=== PATIENT | female | born 1970 | race Caucasian/White ===

== ENCOUNTER → 2016-06-04 | Outpatient (CLI) | payer OTHER ==
--- NOTE | 2016-06-04 16:17 | CT ---
EXAMINATION TYPE: CT abdomen pelvis w con DATE OF EXAM: 06/04/2016 3:27 PM COMPARISON: NONE INDICATION: Abdomin pain DLP: 1142 mGycm, Automated exposure control for dose reduction was used. CONTRAST: 100 ml mL of Omnipaque 300. Study performed with Oral Contrast TECHNIQUE: Axial images were obtained from above the diaphragm to the pubic rami in the axial plane a t 5 mm thick sections. Reconstructed images are reviewed on the computer in the coronal plane. FINDINGS: Limited CT sections are obtained the lung bases. The lung bases are clear. CT ABDOMEN: Liver: Normal Spleen: Normal Pancreas: Normal Adrenal glands: The adrenal glands are normal. Gallbladder: Surgically absent Kidneys: No masses are evident. No hydronephrosis is present. No cysts are present. Delayed images were obtained through the kidneys, which remain unremarkable. Aorta: Vascular calcification is within the aorta. Inferior vena cava: Normal. CT PELVIS: Loops of bowel within the abdomen and pelvis are normal. There are loops of bowel which are incom pletely distended or lack oral contrast limiting their evaluation. Appendix: Normal as visualized. Urinary bladder: Normal. Genitourinary structures: Uterus is not identified. Adnexal regions are clear Osseous structures: No suspicious lytic or sclerotic lesions. IMPRESSIONS: 1. Unremarkable CT abdomen and pelvis
== END | disposition home or self-care (01) ==
LOC: RADCTMAIN 14:55
PROVIDERS: ATTEND Family Medicine
DX: R10.9 Unspecified abdominal pain (principal)
CPT/HCPCS: 74177; Q9967

== ENCOUNTER 2016-08-26 23:22 | Emergency (ER) | payer OTHER ==
[2016-08-27] MEDS ORDERED: ASPIRIN 81 MG CHEW PO STA (00:18)
[2016-08-27 00:41] LABS: Basophils # (A) 0.1 k/uL (0-0.2); Basophils % (A) 1 %; CHCM 32.5; Eosinophils # (A) 0.4 k/uL (0-0.7); Eosinophils % (A) 4 %; HDW 2.26; HGB 14.1 gm/dL (11.4-16.0); Luc # (Auto) 0.34; Luc % (Auto) 3; Lymphocytes # (A) 4.6 k/uL (1.0-4.8); Lymphocytes % (A) 37 %; MCH 29.6 pg (25.0-35.0); MCHC 31.9 g/dL (31.0-37.0); MCV 92.7 fL (80.0-100.0); Mean Platelet Volume 6.7; Monocytes # (A) 0.8 k/uL (0-1.0); Monocytes % (A) 7 %; Neutrophils # (A) 5.9 k/uL (1.3-7.7); Neutrophils % (A) 49 %; RBC 4.75 m/uL (3.80-5.40); RDW 13.8 % (11.5-15.5); WBC 12.2 k/uL (3.8-10.6); WBC (Perox) 11.84
[2016-08-27 00:51] LABS: ALT 18 U/L (9-52); AST 12 U/L (14-36); Alkaline Phosphatase 67 U/L (38-126); Amylase 71 U/L (30-110); Anion Gap 9 mmol/L; Blood Urea Nitrogen 13 mg/dL (7-17); Carbon Dioxide 21 mmol/L (22-30); Chloride 109 mmol/L (98-107); Glucose 95 mg/dL (74-99); Non-African American GFR(MDRD) >60 (>60 ml/min/1.73 sqM); Potassium 4.2 mmol/L (3.5-5.1); Sodium 139 mmol/L (137-145); Total Bilirubin 0.6 mg/dL (0.2-1.3); Total Protein 6.8 g/dL (6.3-8.2)
--- NOTE | 2016-08-27 01:01 | XR ---
EXAM: XR Chest, 1 View. CLINICAL HISTORY: Reason: chest pain TECHNIQUE: Frontal view of the chest. COMPARISON: Chest x-ray 12/25/2015. FINDINGS: Lungs: Unremarkable. No consolidation. Pleural space: Unremarkable. No pneumothorax. Heart: Unremarkable. No cardiomegaly. Mediastinum: Unremarkable. Bones/joints: Unremarkable. Other findings: Partially imaged cervical fusion hardware. IMPRESSION: No acute findings.
[2016-08-27] MEDS ORDERED: HYDROcodone/APAP 7.5-325MG 1 EACH TAB PO ONE (01:04)
[2016-08-27] MEDS ORDERED: IBUPROFEN 600 MG TAB PO STA (01:05)
--- NOTE | 2016-08-27 01:05 | ED ---
Chest Pain HPI - General Chief Complaint: Chest Pain Stated Complaint: Chest pain Time Seen by Provider: 08/26/16 23:33 Source: patient Mode of arrival: wheelchair Limitations: no limitations - History of Present Illness MD Complaint: chest pain Onset/Timin -: hour(s) Onset: during rest Pain Location: left chest Pain Radiation: none Severity: severe Quality: sharp Consistency: constant Improves With: nothing Worsens With: inspiration Treatments Prior to Arrival: none - Related Data Home Medications Medication Instructions Recorded Confirmed HYDROcodone/APAP 10-325MG [[place] 1 tab PO QID 02/16/14 08/26/16 10] Levalbuterol Nebulized [Xopenex 1.25 mg INHALATION RT-TID PRN 02/16/14 08/26/16 Nebulized] Montelukast [Singulair] 10 mg PO HS 04/07/15 08/26/16 diphenhydrAMINE [Benadryl] 50 mg PO HS 04/07/15 08/26/16 Levalbuterol Hfa Inhaler [Xopenex 2 puff INHALATION RT-BID PRN 12/25/15 08/26/16 Hfa Inhaler] Ranitidine HCl [Zantac] 150 mg PO HS 12/25/15 08/26/16 ALPRAZolam [Xanax] 2 mg PO BID PRN 02/29/16 08/26/16 Amoxic-Pot Clav 875-125Mg 1 tab PO BID 08/26/16 08/26/16 [Augmentin 875-125] Ibuprofen [Motrin] 800 mg PO TID PRN 08/26/16 08/26/16 Allergies Allergy/AdvReac Type Severity Reaction Status Date / Time adhesive Allergy Unknown Rash/Hives Verified 08/26/16 23:55 Iodinated Contrast Media - Allergy Rash/Hives Verified 08/26/16 23:55 Oral and [Iodinated Contrast Media - IV Dye] latex Allergy Rash/Hives Verified 08/26/16 23:55 morphine Allergy Rash/Hives Verified 08/26/16 23:55 albuterol AdvReac Rapid Verified 08/26/16 23:55 Heart Rate Review of Systems ROS Statement: Those systems with pertinent positive or pertinent negative responses have been documented in the HPI. ROS Other: All systems not noted in ROS Statement are negative. Constitutional: Denies: fever, chills Respiratory: Denies: cough, dyspnea, wheezes Cardiovascular: Reports: as per HPI, chest pain. Denies: palpitations, orthopnea, edema, syncope Gastrointestinal: Denies: abdominal pain, nausea, vomiting Genitourinary: Denies: dysuria, hematuria Musculoskeletal: Denies: back pain Skin: Denies: rash Neurological: Denies: headache, weakness, numbness EKG Findings - EKG Results: EKG: interpreted by ANJUM TABARES, sinus rhythm (With sinus arrhythmia at a rate of 88 bpm), normal axis, normal QRS, normal ST/T, no acute changes Past Medical History Past Medical History: COPD, Fibromyalgia, Osteoarthritis (OA), Pneumonia Additional Past Medical History / Comment(s): BACK PAIN, HEART PALPITATIONS, INSOMNIA, PULMONARY HTN, COUGH FOR OVER 1 MONTH. PT STATES ABSENCE OF RT LUNCG PULMONARY ARTERY. History of Any Multi-Drug Resistant Organisms: None Reported Past Surgical History: Section, Cholecystectomy, Hysterectomy, Orthopedic Surgery Additional Past Surgical History / Comment(s): LIA CATARACTS, NECK SURG. Past Anesthesia/Blood Transfusion Reactions: No Reported Reaction, Motion Sickness Past Psychological History: Anxiety, Panic Disorder, PTSD Smoking Status: Current every day smoker Past Alcohol Use History: Occasional Past Drug Use History: None Reported General Exam Limitations: no limitations General appearance: alert, in no apparent distress Head exam: Present: atraumatic, normocephalic Eye exam: Present: normal appearance. Absent: scleral icterus, conjunctival injection ENT exam: Present: normal oropharynx Neck exam: Present: normal inspection Respiratory exam: Present: normal lung sounds bilaterally, chest wall tenderness. Absent: respiratory distress, wheezes, rales, rhonchi, stridor, accessory muscle use, decreased breath sounds, prolonged expiratory Cardiovascular Exam: Present: regular rate, normal rhythm, normal heart sounds. Absent: systolic murmur, diastolic murmur, rubs, gallop GI/Abdominal exam: Present: soft. Absent: distended, tenderness, guarding, rebound, mass Extremities exam: Present: normal inspection, normal capillary refill. Absent: pedal edema, calf tenderness Back exam: Present: normal inspection. Absent: CVA tenderness (R), CVA tenderness (L) Neurological exam: Present: alert Psychiatric exam: Present: anxious Skin exam: Present: warm, dry, intact, normal color. Absent: rash Course Vital Signs 08/26/16 08/27/16 23:27 02:12 Temperature 97.6 F 97.4 F L Pulse Rate 91 86 Respiratory 18 16 Rate Blood Pressure 131/63 111/55 O2 Sat by Pulse 96 98 Oximetry Disposition Clinical Impression: Chest pain Disposition: Left Against Medical Advice Condition: Undetermined Instructions: Chest Pain (ED) Referrals: Beto Hernandez MD [Primary Care Provider] - 1-2 days
[2016-08-27 01:11] LABS: Creatine Kinase 56 U/L (30-135); Partial Thromboplastin Time 24.6 sec (22.0-30.0); Prothrombin Time 9.8 sec (9.0-12.0)
[2016-08-27 01:23] LABS: Creatine Kinase MB <0.2 ng/mL (0.0-2.4); Troponin I <0.012 ng/mL (0.000-0.034)
[2016-08-27 02:13] VITALS: BP 111/55; PULSE 86; RESP 16; TEMP 97.4
[2016-08-27] MEDS ORDERED: predniSONE 20 MG TAB PO STA (02:24)
== END 2016-08-27 03:14 | disposition left against medical advice (07) ==
LOC: EC 23:22
DX: R07.9 Chest pain, unspecified (principal); J44.9 Chronic obstructive pulmonary disease, unspecified; M79.7 Fibromyalgia; M19.90 Unspecified osteoarthritis, unspecified site; F41.0 Panic disorder [episodic paroxysmal anxiety]; F43.10 Post-traumatic stress disorder, unspecified; F17.200 Nicotine dependence, unspecified, uncomplicated; Z79.891 Long term (current) use of opiate analgesic; Z79.899 Other long term (current) drug therapy; Z91.041 Radiographic dye allergy status; Z88.5 Allergy status to narcotic agent; Z91.040 Latex allergy status; Z91.048 Other nonmedicinal substance allergy status
CPT/HCPCS: 36415; 71010; 80053; 82150; 82550; 82553; 83690; 83735; 84484; 85025; 85379; 85610; 85730; 93005; 99285

== ENCOUNTER → 2016-09-24 | Outpatient (CLI) | payer OTHER ==
--- NOTE | 2016-09-24 13:23 | CT ---
EXAMINATION TYPE: CT sinus wo con DATE OF EXAM: 09/24/2016 1:12 PM COMPARISON: NONE HISTORY: Patient complains of recurrent sinus infections with sinus drainage. CT DLP: [address] of the paranasal sinuses was performed in the axial and coronal planes. Bone and soft tissue settings are submitted. The paranasal sinuses demonstrate normal aeration and development. Minimal mucosal thickening of the right maxillary sinus. The remaining paranasal sinuses are well-aer ated. The osteal meatal units are patent bilaterally. The nasal septum is midline. No bony destructive changes are seen within the field of view. IMPRESSION: Minimal mucosal thickening right maxillary sinus.
--- NOTE | 2016-09-24 13:26 | CT ---
EXAMINATION TYPE: CT chest w con DATE OF EXAM: 09/24/2016 1:15 PM COMPARISON: May 27, 2014 HISTORY: Patient complains of left side chest/axilla pain with chronic sinusitis and sinus drainage. CT DLP: 494 mGycm Automated exposure control for dose reduction was used. CONTRAST: CT scan of the chest is performed with IV Contrast, patient injected with 100 mL of Omnipaque 300. FINDINGS: LUNGS: Again noted are scattered calcified and noncalcified small pulmonary nodules unchanged from pr ior examination and felt to be related to remote granulomatous disease. There is right apical scarrin g. Mild subpleural fibrosis is identified within the right midlung zone. Mild dependent right basilar atelectasis. MEDIASTINUM: Calcified hilar and mediastinal lymph nodes identified. No pericardial effusion is seen. Thoracic aorta is of normal caliber. The heart is not enlarged. UPPER ABDOMEN: Mild fatty liver. Cholecystectomy clips identified. OTHER: No additional significant abnormality is seen. IMPRESSION: 1. Changes of remote granulomatous disease.
== END | disposition home or self-care (01) ==
LOC: RADCTMAIN 12:27
PROVIDERS: ATTEND Family Medicine
DX: J34.89 Other specified disorders of nose and nasal sinuses (principal); J44.9 Chronic obstructive pulmonary disease, unspecified
CPT/HCPCS: 71260; 70486; Q9967

== ENCOUNTER → 2016-11-22 | Outpatient (CLI) | payer OTHER | END | disposition home or self-care (01) | LOC: RADMRIMAIN 18:19 | PROVIDERS: ATTEND Ophthalmology | DX: Z53.9 Procedure and treatment not carried out, unspecified reason (principal) ==

== ENCOUNTER → 2016-12-02 | Outpatient (CLI) | payer OTHER ==
--- NOTE | 2016-12-02 14:34 | MR ---
EXAMINATION TYPE: MR brain wo/w con DATE OF EXAM: 12/02/2016 COMPARISON: MRI brain March 02, 2012 HISTORY: papilledema unspecified per order. Frequent headaches with blurred vision and eye pain as we ll as forgetfulness per patient. TECHNIQUE: Multiplanar, multisequence images of the brain and brainstem is performed without and with IV contras t, utilizing 15 mL intravenous MultiHance . FINDINGS: Diffusion weighted images demonstrate no evidence of a recent infarct or other diffusion ab normality. There is no worrisome extra-axial fluid collection. The ventricular system and cisternal spaces are normal in size and appearance. The brain volume is age appropriate. There are scattered foci of T2 hyperintensity seen throughout the white matter bilaterally. Estimate tendon 15 scattered small lesions increased in size and number from prior study. Largest measured lesion is 6 x 3 mm left frontal white matter on axial image 20. Midline structures demonstrate normal morphology. The craniocervical junction appears within normal limits. Post contrast images demonstrate no abnormal enhancement. The dural venous sinuses appear pa tent. The globes are intact bilaterally. Visualized paranasal sinuses are grossly clear. IMPRESSION: Progression of mild to borderline moderate nonspecific white matter changes. Findings cou ld reflect ischemic change related to product of migraine headaches however in patient of this age de myelinating disease needs to BE excluded. Neurology referral advised.
== END ==
LOC: RADMRIMAIN 12:52
PROVIDERS: ATTEND Family Medicine
DX: R90.89 Other abnormal findings on diagnostic imaging of central nervous system (principal)
CPT/HCPCS: 70553; A9577

== ENCOUNTER 2017-01-15 23:11 | Observation (INO) | payer OTHER ==
[2017-01-15] MEDS ORDERED: NITROGLYCERIN OINT 1 INCH/GM PACKET TOPICAL STA (23:26)
[2017-01-15] MEDS ORDERED: ASPIRIN 81 MG PO STA (23:26)
[2017-01-15] MEDS ORDERED: NITROGLYCERIN SL TABS 0.4 MG TAB SUBLINGUAL STA (23:26)
--- NOTE | 2017-01-15 23:29 | ED ---
General Adult HPI - General Chief complaint: Chest Pain Stated complaint: Chest Pain/Dizzy/Headache Time Seen by Provider: 01/15/17 23:15 Source: patient, family, RN notes reviewed Mode of arrival: ambulatory Limitations: no limitations - History of Present Illness Initial comments: This is a 46-year-old female presents emergency Department with a past medical history significant for elevated cholesterol and COPD and continues to smoke at this time. Patient states she's been in the ER many times prior to this for chest pain and known is able to find anything that is causing her pain. Patient states she started having pain a couple hours prior to arrival she also states she short of breath with the pain she states the pain radiates up into her neck and down her left arm. Patient states she had no nausea or vomiting. Patient states she does have a headache but the headache is been ongoing for months. Patient states she is also a little bit dizzy but that is also been going on for quite a long time. Patient denies any fever chills or cough. Patient denies abdominal pain patient denies any sweating episodes. Patient denies any leg swelling or calf pain. - Related Data Home Medications Medication Instructions Recorded Confirmed HYDROcodone/APAP 10-325MG [[place] 1 tab PO QID 02/16/14 01/15/17 10] Levalbuterol Nebulized [Xopenex 1.25 mg INHALATION RT-TID PRN 02/16/14 01/15/17 Nebulized] Montelukast [Singulair] 10 mg PO HS 04/07/15 01/15/17 diphenhydrAMINE [Benadryl] 50 mg PO HS 04/07/15 01/15/17 Levalbuterol Hfa Inhaler [Xopenex 2 puff INHALATION RT-BID PRN 12/25/15 01/15/17 Hfa Inhaler] Ranitidine HCl [Zantac] 150 mg PO HS 12/25/15 01/15/17 ALPRAZolam [Xanax] 2 mg PO BID PRN 02/29/16 01/15/17 Ibuprofen [Motrin] 800 mg PO TID PRN 08/26/16 01/15/17 Allergies Allergy/AdvReac Type Severity Reaction Status Date / Time adhesive Allergy Unknown Rash/Hives Verified 01/15/17 23:15 Iodinated Contrast- Oral and Allergy Rash/Hives Verified 01/15/17 23:15 IV Dye [Iodinated Contrast Media - IV Dye] latex Allergy Rash/Hives Verified 01/15/17 23:15 morphine Allergy Rash/Hives Verified 01/15/17 23:15 albuterol AdvReac Rapid Verified 01/15/17 23:15 Heart Rate Review of Systems ROS Statement: Those systems with pertinent positive or pertinent negative responses have been documented in the HPI. ROS Other: All systems not noted in ROS Statement are negative. Past Medical History Past Medical History: COPD, Fibromyalgia, Osteoarthritis (OA), Pneumonia Additional Past Medical History / Comment(s): BACK PAIN, HEART PALPITATIONS, INSOMNIA, PULMONARY HTN, COUGH FOR OVER 1 MONTH. PT STATES ABSENCE OF RT LUNCG PULMONARY ARTERY. History of Any Multi-Drug Resistant Organisms: None Reported Past Surgical History: Section, Cholecystectomy, Hysterectomy, Orthopedic Surgery Additional Past Surgical History / Comment(s): LIA CATARACTS, NECK SURG, right knee surgery Past Anesthesia/Blood Transfusion Reactions: No Reported Reaction, Motion Sickness Past Psychological History: Anxiety, Panic Disorder, PTSD Smoking Status: Current every day smoker Past Alcohol Use History: Occasional Past Drug Use History: None Reported General Exam - General Exam Comments Initial Comments: GENERAL: Patient is well-developed and well-nourished. Patient is nontoxic and well- hydrated and is in no acute distress. ENT: Neck is soft and supple. No significant lymphadenopathy is noted. Oropharynx is clear. Moist mucous membranes. Neck has full range of motion without eliciting any pain. EYES: The sclera were anicteric and conjunctiva were pink and moist. Extraocular movements were intact and pupils were equal round and reactive to light. Eyelids were unremarkable. PULMONARY: Unlabored respirations. Good breath sounds bilaterally. No audible rales rhonchi or wheezing was noted. CARDIOVASCULAR: There is a regular rate and rhythm without any murmurs gallops or rubs. ABDOMEN: Soft and nontender with normal bowel sounds. No palpable organomegaly was noted. There is no palpable pulsatile mass. SKIN: Skin is clear with no lesions or rashes and otherwise unremarkable. NEUROLOGIC: Patient is alert and oriented x3. Cranial nerves II through XII are grossly intact. Motor and sensory are also intact. Normal speech, volume and content. Symmetrical smile. MUSCULOSKELETAL: Normal extremities with adequate strength and full range of motion. LYMPHATICS: No significant lymphadenopathy is noted PSYCHIATRIC: Normal psychiatric evaluation. Normal interpersonal interactions appears functionally intact in deals appropriately with others. No signs of depression. Patient is mildly anxious Limitations: no limitations Course Vital Signs 01/15/17 01/16/17 23:15 00:17 Temperature 98.6 F Pulse Rate 101 H 95 Respiratory 22 20 Rate Blood Pressure 127/74 95/54 O2 Sat by Pulse 95 97 Oximetry Medical Decision Making - Medical Decision Making EKG shows normal sinus rhythm at 99 bpm [place] interval 132 QRS is 82 QT interval 350 QTC is 449. Patient's EKG shows no ST segment elevation or depression or T wave abnormalities are noted. Chest x-ray shows no acute abnormality. - Lab Data Result diagrams: 01/15/17 23:30 01/15/17 23:30 Lab Results 01/15/17 01/15/17 01/15/17 Range/Units 23:30 23:30 23:30 WBC 16.9 H (3.8-10.6) k/uL RBC 4.88 (3.80-5.40) m/uL Hgb 14.7 (11.4-16.0) gm/dL Hct 44.0 (34.0-46.0) % MCV 90.2 (80.0-100.0) fL MCH 30.2 (25.0-35.0) pg MCHC 33.4 (31.0-37.0) g/dL RDW 14.8 (11.5-15.5) % Plt Count 422 (150-450) k/uL Neutrophils % 64 % Lymphocytes % 25 % Monocytes % 7 % Eosinophils % 2 % Basophils % 1 % Neutrophils # 10.8 H (1.3-7.7) k/uL Lymphocytes # 4.2 (1.0-4.8) k/uL Monocytes # 1.2 H (0-1.0) k/uL Eosinophils # 0.3 (0-0.7) k/uL Basophils # 0.1 (0-0.2) k/uL PT (9.0-12.0) sec INR (<1.2) APTT (22.0-30.0) sec Sodium 141 (137-145) mmol/L Potassium 4.6 (3.5-5.1) mmol/L Chloride 107 (98-107) mmol/L Carbon Dioxide 25 (22-30) mmol/L Anion Gap 9 mmol/L BUN 11 (7-17) mg/dL Creatinine 0.90 (0.52-1.04) mg/dL Est GFR (MDRD) Af Amer >60 (>60 ml/min/1.73 sqM) Est GFR (MDRD) Non-Af >60 (>60 ml/min/1.73 sqM) Glucose 104 H (74-99) mg/dL Calcium 9.8 (8.4-10.2) mg/dL Magnesium 2.1 (1.6-2.3) mg/dL Total Bilirubin 0.4 (0.2-1.3) mg/dL AST 16 (14-36) U/L ALT 32 (9-52) U/L Alkaline Phosphatase 86 (38-126) U/L Total Creatine Kinase 36 (30-135) U/L CK-MB (CK-2) <0.2 (0.0-2.4) ng/mL CK-MB (CK-2) Rel Index Troponin I <0.012 (0.000-0.034) ng/mL Total Protein 7.1 (6.3-8.2) g/dL Albumin 4.2 (3.5-5.0) g/dL 01/15/17 Range/Units 23:30 WBC (3.8-10.6) k/uL RBC (3.80-5.40) m/uL Hgb (11.4-16.0) gm/dL Hct (34.0-46.0) % MCV (80.0-100.0) fL MCH (25.0-35.0) pg MCHC (31.0-37.0) g/dL RDW (11.5-15.5) % Plt Count (150-450) k/uL Neutrophils % % Lymphocytes % % Monocytes % % Eosinophils % % Basophils % % Neutrophils # (1.3-7.7) k/uL Lymphocytes # (1.0-4.8) k/uL Monocytes # (0-1.0) k/uL Eosinophils # (0-0.7) k/uL Basophils # (0-0.2) k/uL PT 9.8 (9.0-12.0) sec INR 1.0 (<1.2) APTT 24.4 (22.0-30.0) sec Sodium (137-145) mmol/L Potassium (3.5-5.1) mmol/L Chloride (98-107) mmol/L Carbon Dioxide (22-30) mmol/L Anion Gap mmol/L BUN (7-17) mg/dL Creatinine (0.52-1.04) mg/dL Est GFR (MDRD) Af Amer (>60 ml/min/1.73 sqM) Est GFR (MDRD) Non-Af (>60 ml/min/1.73 sqM) Glucose (74-99) mg/dL Calcium (8.4-10.2) mg/dL Magnesium (1.6-2.3) mg/dL Total Bilirubin (0.2-1.3) mg/dL AST (14-36) U/L ALT (9-52) U/L Alkaline Phosphatase (38-126) U/L Total Creatine Kinase (30-135) U/L CK-MB (CK-2) (0.0-2.4) ng/mL CK-MB (CK-2) Rel Index Troponin I (0.000-0.034) ng/mL Total Protein (6.3-8.2) g/dL Albumin (3.5-5.0) g/dL Disposition Clinical Impression: Chest pain Disposition: ADMITTED IP TO THIS [facility] Referrals: Beto Hernandez MD [Primary Care Provider] - 1-2 days Time of Disposition: 00:24
[2017-01-15 23:37] LABS: Basophils # (A) 0.1 k/uL (0-0.2); Basophils % (A) 1 %; CH 30.7; CHCM 34.2; Eosinophils # (A) 0.3 k/uL (0-0.7); Eosinophils % (A) 2 %; HDW 2.33; HGB 14.7 gm/dL (11.4-16.0); Luc # (Auto) 0.27; Luc % (Auto) 2; Lymphocytes # (A) 4.2 k/uL (1.0-4.8); Lymphocytes % (A) 25 %; MCH 30.2 pg (25.0-35.0); MCHC 33.4 g/dL (31.0-37.0); MCV 90.2 fL (80.0-100.0); Monocytes # (A) 1.2 k/uL (0-1.0); Monocytes % (A) 7 %; Neutrophils # (A) 10.8 k/uL (1.3-7.7); Neutrophils % (A) 64 %; RBC 4.88 m/uL (3.80-5.40); RDW 14.8 % (11.5-15.5); WBC 16.9 k/uL (3.8-10.6); WBC (Perox) 15.42
[2017-01-15 23:47] LABS: ALT 32 U/L (9-52); AST 16 U/L (14-36); Alkaline Phosphatase 86 U/L (38-126); Anion Gap 9 mmol/L; Blood Urea Nitrogen 11 mg/dL (7-17); Calcium 9.8 mg/dL (8.4-10.2); Carbon Dioxide 25 mmol/L (22-30); Chloride 107 mmol/L (98-107); Glucose 104 mg/dL (74-99); Magnesium 2.1 mg/dL (1.6-2.3); Non-African American GFR(MDRD) >60 (>60 ml/min/1.73 sqM); Potassium 4.6 mmol/L (3.5-5.1); Sodium 141 mmol/L (137-145); Total Bilirubin 0.4 mg/dL (0.2-1.3); Total Protein 7.1 g/dL (6.3-8.2)
[2017-01-15 23:49] LABS: Partial Thromboplastin Time 24.4 sec (22.0-30.0); Prothrombin Time 9.8 sec (9.0-12.0)
[2017-01-15 23:58] LABS: Creatine Kinase 36 U/L (30-135)
--- NOTE | 2017-01-16 00:03 | XR ---
EXAM: XR Chest, 2 Views CLINICAL HISTORY: Reason: Chest Pain TECHNIQUE: Frontal and lateral views of the chest. COMPARISON: Chest radiographs 12/25/2015 and 08/27/2016 FINDINGS: Lungs: Mild left base subsegmental atelectasis. Lungs are otherwise clear without focal infiltrates or consolidations. Pleural space: No pneumothorax. No pleural effusion. Heart: Heart size is within normal limits. Mediastinum: Mediastinal structures are unremarkable. Bones/joints: Partially imaged Fixation plate projects to lower cervical spine. Other findings: No significant change as compared to prior comparison chest radiographs. IMPRESSION: No evidence of active chest disease.
[2017-01-16 00:11] LABS: Creatine Kinase MB <0.2 ng/mL (0.0-2.4); Troponin I <0.012 ng/mL (0.000-0.034)
[2017-01-16] MEDS ORDERED: NITROGLYCERIN SL TABS 0.4 MG TAB SUBLINGUAL PRN (00:25)
[2017-01-16] MEDS ORDERED: LORazepam 2 MG/ML SYRINGE IV STA (00:34)
[2017-01-16] MEDS ORDERED: KETOROLAC 30 MG/ML 1 ML VIAL IVP STA (00:34)
[2017-01-16] MEDS ORDERED: FAMOTIDINE 20 MG TAB PO SCH (01:49)
[2017-01-16] MEDS ORDERED: diphenhydrAMINE 50 MG CAP PO SCH (01:49)
[2017-01-16] MEDS ORDERED: MONTELUKAST 10 MG TAB PO PRN (01:49)
[2017-01-16] MEDS ORDERED: IBUPROFEN 800 MG TAB PO PRN (01:49)
[2017-01-16] MEDS ORDERED: HYDROcodone/APAP 10-325MG 1 EACH TAB PO PRN (01:49)
[2017-01-16] MEDS ORDERED: ALPRAZolam 0.5 MG TAB PO PRN (01:49)
[2017-01-16] MEDS ORDERED: LEVALBUTEROL NEB 1.25 MG/3 ML AMP INHALATION PRN (01:49)
[2017-01-16] MEDS ORDERED: ALBUTEROL NEBULIZED 2.5 MG/3 ML INHALATION PRN (01:49)
[2017-01-16 04:35] VITALS: RESP 18
[2017-01-16 05:54] LABS: Creatine Kinase 37 U/L (30-135)
[2017-01-16] MEDS ORDERED: NITROGLYCERIN OINT 1 INCH/GM PACKET TOPICAL SCH (06:00)
[2017-01-16 06:06] LABS: Creatine Kinase MB <0.2 ng/mL (0.0-2.4); Troponin I <0.012 ng/mL (0.000-0.034)
--- NOTE | 2017-01-16 09:54 | ECHOF ---
Referral Reason:chest pain MEASUREMENTS -------- HEIGHT: 167.6 cm WEIGHT: 68.0 kg BP: 102/55 IVSd: 0.7 cm (0.6 - 1.1) LVIDd: 4.2 cm (3.9 - 5.3) LVPWd: 0.7 cm (0.6 - 1.1) IVSs: 1.3 cm LVIDs: 2.8 cm LVPWs: 1.5 cm Ao Diam: 2.9 cm (2.0 - 3.7) AV Cusp: 1.8 cm (1.5 - 2.6) LA Diam: 2.5 cm (2.7 - 3.8) MV EXCURSION: 21.258 mm (> 18.000) MV EF SLOPE: 120 mm/s (70 - 150) EPSS: 0.6 cm MV E Bjorn: 0.59 m/s MV DecT: 199 ms MV A Bjorn: 0.53 m/s MV E/A Ratio: 1.11 RAP: 5.00 mmHg RVSP: 10.02 mmHg FINDINGS -------- Sinus rhythm. This was a technically good study. Left ventricular wall thickness is normal. Overall left ventricular systolic function is low-normal with, an EF between 50 - 55 %. The right ventricle is normal in size and function. The left atrium is normal in size. The right atrium is normal in size. The aortic valve is trileaflet, and appears structurally normal. No aortic stenosis or regurgitation. There is trace mitral regurgitation. Trace tricuspid regurgitation present. The right ventricular systolic pressure, as measured by Doppler, is 10.02mmHg. Pulmonic valve appears structurally normal. The aortic root size is normal. The pericardium is normal. CONCLUSIONS -------- 1. Sinus rhythm. 2. Trace tricuspid regurgitation present. 3. The right ventricular systolic pressure, as measured by Doppler, is 10.02mmHg. 4. Pulmonic valve appears structurally normal. 5. The aortic root size is normal. 6. The pericardium is normal. 7. This was a technically good study. 8. Left ventricular wall thickness is normal. 9. Overall left ventricular systolic function is low-normal with, an EF between 50 - 55 %. 10. The right ventricle is normal in size and function. 11. The left atrium is normal in size. 12. The right atrium is normal in size. 13. The aortic valve is trileaflet, and appears structurally normal. No aortic stenosis or regurgitation. 14. There is trace mitral regurgitation. STATION INSPECTOR: Leticia Faye RDCS
[2017-01-16 11:20] VITALS: BP 91/56; PULSE 87; TEMP 98.1
--- NOTE | 2017-01-16 11:23 | P.CRDCN ---
History of Present Illness Consult date: 01/16/17 History of present illness: This is a 46-year-old female. Past medical history significant for COPD. She denies any history of coronary artery disease, hypertension, hyperlipidemia or diabetes. Patient presents with complaints of sharp stabbing midsternal chest pain while sitting down and keeping score at a sporting event. She states this pain is made worse with movement and associated with mild shortness of breath. She denies radiation of the pain, nausea, vomiting, diaphoresis or dizziness. She states the pain persisted and is still ongoing when she tries to move around. She is seen and examined resting in bed. She is frequently closing her eyes during conversation and having to be woken up. EKG done shows normal sinus mechanism no T-wave abnormality. CBC indicates white blood cell count of 16.9, otherwise unremarkable. Potassium 4.6. CPK and troponin are normal x 2. Chest x-ray showed left basilar segmental atelectasis with no acute cardiopulmonary process. Review of Systems REVIEW OF SYSTEMS: Patient continues to complain of pleuritic chest discomfort. No shortness of breath. No diaphoresis. Denies headache, dizziness, blurred vision, double vision. No dyspnea on exertion. Patient denies any stomach discomfort. No nausea, vomiting. No hematochezia. No hematemesis. Denies any black stools or blood in his stools. No syncope. No palpitations. No cough. No recent fever or chills. No muscle weakness or numbness. Past Medical History Past Medical History: COPD, Fibromyalgia, Osteoarthritis (OA), Pneumonia Additional Past Medical History / Comment(s): BACK PAIN, HEART PALPITATIONS, INSOMNIA, PULMONARY HTN. PT STATES ABSENCE OF RT LUNG PULMONARY ARTERY. History of Any Multi-Drug Resistant Organisms: None Reported Past Surgical History: Section, Cholecystectomy, Hysterectomy, Orthopedic Surgery Additional Past Surgical History / Comment(s): LIA CATARACTS, NECK SURG, right knee surgery Past Anesthesia/Blood Transfusion Reactions: No Reported Reaction, Motion Sickness Past Psychological History: Anxiety, Panic Disorder, PTSD Smoking Status: Current every day smoker Past Alcohol Use History: Occasional Past Drug Use History: None Reported - Past Family History Mother Family Medical History: Thyroid Disorder Father Family Medical History: Congestive Heart Failure (CHF) Additional Family Medical History / Comment(s): crohns Brother(s) Family Medical History: Diabetes Mellitus Daughter(s) Additional Family Medical History / Comment(s): hole in heart repaired Son(s) Additional Family Medical History / Comment(s): from aortic dissection Medications and Allergies Home Medications Medication Instructions Recorded Confirmed Type HYDROcodone/APAP 10-325MG [[place] 1 tab PO QID PRN 02/16/14 01/16/17 History 10] Montelukast [Singulair] 10 mg PO HS PRN 04/07/15 01/16/17 History diphenhydrAMINE [Benadryl] 50 mg PO HS 04/07/15 01/16/17 History Levalbuterol Hfa Inhaler [Xopenex 2 puff INHALATION RT-BID PRN 12/25/15 History Hfa Inhaler] Ranitidine HCl [Zantac] 150 mg PO HS PRN 12/25/15 01/16/17 History ALPRAZolam [Xanax] 2 mg PO BID PRN 02/29/16 01/16/17 History Ibuprofen [Motrin] 800 mg PO TID PRN 08/26/16 01/16/17 History Allergies Allergy/AdvReac Type Severity Reaction Status Date / Time adhesive Allergy Unknown Rash/Hives Verified 01/16/17 07:26 Iodinated Contrast- Oral and Allergy Rash/Hives Verified 01/16/17 07:26 IV Dye [Iodinated Contrast Media - IV Dye] latex Allergy Rash/Hives Verified 01/16/17 07:26 morphine Allergy Rash/Hives Verified 01/16/17 07:26 albuterol AdvReac Rapid Verified 01/16/17 07:26 Heart Rate Physical Exam Vitals: Vital Signs Temp Pulse Pulse Resp BP BP BP 01/16/17 10:00 87/53 01/16/17 08:00 88 18 01/16/17 07:28 98.0 F 88 18 86/48 01/16/17 04:34 98.2 F 87 18 94/42 01/16/17 02:07 97.0 F L 101 H 16 102/55 01/16/17 02:00 20 01/16/17 00:39 95 20 116/55 01/16/17 00:17 95 20 95/54 01/15/17 23:15 98.6 F 101 H 22 127/74 Pulse Ox 01/16/17 10:00 01/16/17 08:00 01/16/17 07:28 95 01/16/17 04:34 97 01/16/17 02:07 97 01/16/17 02:00 01/16/17 00:39 97 01/16/17 00:17 97 01/15/17 23:15 95 Intake and Output 01/15/17 01/16/17 01/16/17 22:59 06:59 14:59 Intake Total 200 Balance 200 Intake: Oral 200 Other: Voiding Method Toilet Toilet # Voids 2 Weight 68.039 kg GENERAL: This is a 46-year-old female in no apparent distress at the time of my examination. Lethargic. HEENT: Head is atraumatic, normocephalic. Pupils are equal, round. Sclerae anicteric. Conjunctivae are clear. Mucous membranes of the mouth are moist. Neck is supple. There is no jugular venous distention. No carotid bruit is heard. LUNGS: Clear to auscultation no wheezes, rales or rhonchi. No chest wall tenderness is noted on palpation or with deep breathing. HEART: Regular rate and rhythm without murmurs, rubs or gallops. S1 and S2 heard. ABDOMEN: Soft, nontender. Bowel sounds are heard. No organomegaly noted. EXTREMITIES: 2+ peripheral pulses with no evidence of peripheral edema and no calf tenderness noted. NEUROLOGIC: Patient oriented x3. Results 01/15/17 23:30 01/15/17 23:30 Cardiac Enzymes 01/15/17 01/15/17 01/16/17 Range/Units 23:30 23:30 05:17 AST 16 (14-36) U/L CK-MB (CK-2) <0.2 <0.2 (0.0-2.4) ng/mL Troponin I <0.012 <0.012 (0.000-0.034) ng/mL Coagulation 01/15/17 Range/Units 23:30 PT 9.8 (9.0-12.0) sec APTT 24.4 (22.0-30.0) sec CBC 01/15/17 Range/Units 23:30 WBC 16.9 H (3.8-10.6) k/uL RBC 4.88 (3.80-5.40) m/uL Hgb 14.7 (11.4-16.0) gm/dL Hct 44.0 (34.0-46.0) % Plt Count 422 (150-450) k/uL Comprehensive Metabolic Panel 01/15/17 Range/Units 23:30 Sodium 141 (137-145) mmol/L Potassium 4.6 (3.5-5.1) mmol/L Chloride 107 (98-107) mmol/L Carbon Dioxide 25 (22-30) mmol/L BUN 11 (7-17) mg/dL Creatinine 0.90 (0.52-1.04) mg/dL Glucose 104 H (74-99) mg/dL Calcium 9.8 (8.4-10.2) mg/dL AST 16 (14-36) U/L ALT 32 (9-52) U/L Alkaline Phosphatase 86 (38-126) U/L Total Protein 7.1 (6.3-8.2) g/dL Albumin 4.2 (3.5-5.0) g/dL Current Medications Generic Name Dose Route Start Last Admin Trade Name Freq PRN Reason Stop Dose Admin Hydrocodone Bitart/Acetaminophen 1 each 01/16/17 01:49 01/16/17 02:12 [place] 10 PO 1 each QID PRN Administration Pain Alprazolam 2 mg 01/16/17 01:49 01/16/17 02:11 Xanax PO 2 mg BID PRN Administration Anxiety Aspirin 325 mg 01/17/17 09:00 Aspirin PO DAILY YANE Diphenhydramine HCl 50 mg 01/16/17 01:49 01/16/17 02:13 Benadryl PO 50 mg HS YANE Administration Famotidine 20 mg 01/16/17 01:49 01/16/17 02:13 Pepcid PO 20 mg HS YANE Administration Ibuprofen 800 mg 01/16/17 01:49 Motrin PO TID PRN Pain Levalbuterol HCl 1.25 mg 01/16/17 01:49 Xopenex Nebulized INHALATION RT-TID PRN Shortness Of Breath Montelukast Sodium 10 mg 01/16/17 01:49 Singulair PO HS PRN Allergy Symptoms Nitroglycerin 0.4 mg 01/16/17 00:25 Nitrostat SUBLINGUAL Q5M PRN Chest Pain Intake and Output 01/15/17 01/16/17 01/16/17 22:59 06:59 14:59 Intake Total 200 Balance 200 Intake: Oral 200 Other: Voiding Method Toilet Toilet # Voids 2 Weight 68.039 kg 01/15/17 23:30 01/15/17 23:30 EKG Interpretations (text) EKG indicates a normal sinus mechanism with no ST or T-wave abnormality. Assessment and Plan Plan: ASSESSMENT 1. Pleuritic chest pain 2. COPD PLAN Obtain echocardiogram. If the echocardiogram is unremarkable the patient is stable for discharge home from a cardiac standpoint. This pain presents as more musculoskeletal in nature. Anti-inflammatories are recommended for optimal pain control. Thank you kindly for this consultation. Nurse Practitioner note has been reviewed, I agree with a documented findings and plan of care. Patient was seen and examined.
[2017-01-16 11:59] LABS: Creatine Kinase 34 U/L (30-135)
[2017-01-16 12:13] LABS: Creatine Kinase MB <0.2 ng/mL (0.0-2.4); Troponin I <0.012 ng/mL (0.000-0.034)
--- NOTE | 2017-01-16 12:19 | P.HPIM ---
History of Present Illness 46-year-old female was admitted to the emergency room with complaints of chest pain patient does have a history of COPD with smoking fibromyalgia osteoarthritis. Opioid dependence. Patient was to have cardiology consultation Review of Systems Cardiovascular: Reports chest pain Past Medical History Past Medical History: COPD, Fibromyalgia, Osteoarthritis (OA), Pneumonia Additional Past Medical History / Comment(s): BACK PAIN, HEART PALPITATIONS, INSOMNIA, PULMONARY HTN. PT STATES ABSENCE OF RT LUNG PULMONARY ARTERY. History of Any Multi-Drug Resistant Organisms: None Reported Past Surgical History: Section, Cholecystectomy, Hysterectomy, Orthopedic Surgery Additional Past Surgical History / Comment(s): LIA CATARACTS, NECK SURG, right knee surgery Past Anesthesia/Blood Transfusion Reactions: No Reported Reaction, Motion Sickness Past Psychological History: Anxiety, Panic Disorder, PTSD Smoking Status: Current every day smoker Past Alcohol Use History: Occasional Past Drug Use History: None Reported - Past Family History Mother Family Medical History: Thyroid Disorder Father Family Medical History: Congestive Heart Failure (CHF) Additional Family Medical History / Comment(s): crohns Brother(s) Family Medical History: Diabetes Mellitus Daughter(s) Additional Family Medical History / Comment(s): hole in heart repaired Son(s) Additional Family Medical History / Comment(s): from aortic dissection Medications and Allergies Home Medications Medication Instructions Recorded Confirmed Type HYDROcodone/APAP 10-325MG [[place] 1 tab PO QID PRN 02/16/14 01/16/17 History 10] Montelukast [Singulair] 10 mg PO HS PRN 04/07/15 01/16/17 History diphenhydrAMINE [Benadryl] 50 mg PO HS 04/07/15 01/16/17 History Levalbuterol Hfa Inhaler [Xopenex 2 puff INHALATION RT-BID PRN 12/25/15 History Hfa Inhaler] Ranitidine HCl [Zantac] 150 mg PO HS PRN 12/25/15 01/16/17 History ALPRAZolam [Xanax] 2 mg PO BID PRN 02/29/16 01/16/17 History Ibuprofen [Motrin] 800 mg PO TID PRN 08/26/16 01/16/17 History Allergies Allergy/AdvReac Type Severity Reaction Status Date / Time adhesive Allergy Unknown Rash/Hives Verified 01/16/17 07:26 Iodinated Contrast- Oral and Allergy Rash/Hives Verified 01/16/17 07:26 IV Dye [Iodinated Contrast Media - IV Dye] latex Allergy Rash/Hives Verified 01/16/17 07:26 morphine Allergy Rash/Hives Verified 01/16/17 07:26 albuterol AdvReac Rapid Verified 01/16/17 07:26 Heart Rate Physical Exam Vitals: Vital Signs Temp Pulse Pulse Resp BP BP BP 01/16/17 12:00 87 18 01/16/17 11:19 98.1 F 87 18 91/56 01/16/17 10:00 87/53 01/16/17 08:00 88 18 01/16/17 07:28 98.0 F 88 18 86/48 01/16/17 04:34 98.2 F 87 18 94/42 01/16/17 02:07 97.0 F L 101 H 16 102/55 01/16/17 02:00 20 01/16/17 00:39 95 20 116/55 01/16/17 00:17 95 20 95/54 01/15/17 23:15 98.6 F 101 H 22 127/74 Pulse Ox 01/16/17 12:00 01/16/17 11:19 99 01/16/17 10:00 01/16/17 08:00 01/16/17 07:28 95 01/16/17 04:34 97 01/16/17 02:07 97 01/16/17 02:00 01/16/17 00:39 97 01/16/17 00:17 97 01/15/17 23:15 95 Intake and Output 01/15/17 01/16/17 01/16/17 22:59 06:59 14:59 Intake Total 200 Balance 200 Intake: Oral 200 Other: Voiding Method Toilet Toilet # Voids 2 Weight 68.039 kg - Constitutional General appearance: mild distress - EENT Eyes: PERRLA Ears: bilateral: normal - Neck Neck: normal ROM - Respiratory Respiratory: bilateral: CTA - Cardiovascular Rhythm: regular - Gastrointestinal General gastrointestinal: soft - Integumentary Integumentary: normal - Neurologic Neurologic: CNII-XII intact - Musculoskeletal Musculoskeletal: gait normal - Psychiatric Psychiatric: A&O x's 3, appropriate affect, intact judgment & insight Results CBC & Chem 7: 01/15/17 23:30 01/15/17 23:30 Labs: Abnormal Lab Results - Last 24 Hours (Table) 01/15/17 01/15/17 Range/Units 23:30 23:30 WBC 16.9 H (3.8-10.6) k/uL Neutrophils # 10.8 H (1.3-7.7) k/uL Monocytes # 1.2 H (0-1.0) k/uL Glucose 104 H (74-99) mg/dL Chest x-ray: report reviewed Thrombosis Risk Factor Assmnt - Choose All That Apply Any of the Below Risk Factors Present?: Yes Each Factor Represents 1 point: Abnormal pulmonary function (COPD), Age 41-60 years Other Risk Factors: No Other congenital or acquired thrombophilia - If yes, enter type in comment: No Thrombosis Risk Factor Assessment Total Risk Factor Score: 2 Thrombosis Risk Factor Assessment Level: Low Risk Assessment and Plan Plan: Assessment chest pain troponins negative 2 History of COPD with active nicotine use Fibromyalgia history Osteoarthritis chronic low back pain with opioid dependence Plan Cardiology consultation
--- NOTE | 2017-01-16 12:23 | P.DS ---
Providers Date of admission: 01/16/17 00:25 Expected date of discharge: 01/16/17 Attending physician: Beto Hernandez Consults: 01/16/17 00:25 Consult Physician Urgent Consulting Provider: [facility] Consult Reason/Comments: Chest pain Do you want consulting provider notified?: Yes Primary care physician: Beto Hernandez [facility] Course: 46-year-old female is admitted to the emergency room with chest pain. A consultation with cardiology was cleared for discharge 2-D echo normal. Patient upset about refusal order for Dilaudid. Patient stable to be discharged home Assessment Chest pain pleuritic in nature History of COPD with smoking Fibromyalgia Chronic back pain and opioid dependence Osteoarthritis Plan A follow-up with family physician and cardiology Plan - Discharge Summary New Discharge Prescriptions: Continue HYDROcodone/APAP 10-325MG [[place] 10-325] 1 tab PO QID PRN PRN Reason: Pain diphenhydrAMINE [Benadryl] 50 mg PO HS Montelukast [Singulair] 10 mg PO HS PRN PRN Reason: Allergy Symptoms Ranitidine HCl [Zantac] 150 mg PO HS PRN PRN Reason: Heartburn Levalbuterol Hfa Inhaler [Xopenex Hfa Inhaler] 2 puff INHALATION RT-BID PRN PRN Reason: Shortness Of Breath ALPRAZolam [Xanax] 2 mg PO BID PRN PRN Reason: Anxiety Ibuprofen [Motrin] 800 mg PO TID PRN PRN Reason: Pain Discharge Medication List HYDROcodone/APAP 10-325MG [[place] 10-325] 1 tab PO QID PRN 02/16/14 [History] Montelukast [Singulair] 10 mg PO HS PRN 04/07/15 [History] diphenhydrAMINE [Benadryl] 50 mg PO HS 04/07/15 [History] Levalbuterol Hfa Inhaler [Xopenex Hfa Inhaler] 2 puff INHALATION RT-BID PRN 01/01 [History] Ranitidine HCl [Zantac] 150 mg PO HS PRN 12/25/15 [History] ALPRAZolam [Xanax] 2 mg PO BID PRN 02/29/16 [History] Ibuprofen [Motrin] 800 mg PO TID PRN 08/26/16 [History] Follow up Appointment(s)/Referral(s): Beto Hernandez MD [Primary Care Provider] - 1-2 days
[2017-01-17] MEDS ORDERED: ASPIRIN 325 MG TAB PO SCH (09:00)
== END 2017-01-16 12:23 | disposition left against medical advice (07) ==
LOC: EC 23:11 → 3OBS 01-16 00:25
PROVIDERS: ADMIT Family Medicine; ATTEND Family Medicine
DX: R07.2 Precordial pain (principal); R06.02 Shortness of breath; R42 Dizziness and giddiness; R51 Headache; J44.9 Chronic obstructive pulmonary disease, unspecified; F17.200 Nicotine dependence, unspecified, uncomplicated; M79.7 Fibromyalgia; F11.20 Opioid dependence, uncomplicated; G89.29 Other chronic pain; M54.5 Low back pain; M19.90 Unspecified osteoarthritis, unspecified site; F41.0 Panic disorder [episodic paroxysmal anxiety]; Z79.899 Other long term (current) drug therapy; Z91.041 Radiographic dye allergy status; Z91.040 Latex allergy status; Z88.5 Allergy status to narcotic agent; Z88.8 Allergy status to other drugs, medicaments and biological substances; Z91.048 Other nonmedicinal substance allergy status; Z87.01 Personal history of pneumonia (recurrent); Z82.49 Family history of ischemic heart disease and other diseases of the circulatory system; Z83.3 Family history of diabetes mellitus
CPT/HCPCS: 96374; 96375; 99285; 36415; 93005; 93306; 80053; 82550 ×2; 82553 ×2; 83735; 84484 ×2; 85025; 85610; 85730; 71020; G0378; J2060; J1885

== ENCOUNTER 2017-01-23 07:19 | Day surgery (SDC) | payer OTHER ==
[2017-01-22 08:53] VITALS: BMI 24.2
[~2017-01-23 07:19] MED LIST: LACTATED RINGERS 1,000 ML IV SCH
[2017-01-23 08:02] VITALS: TEMP 978
[2017-01-23] MEDS ORDERED: LIDOCAINE 1% 20 ML VIAL (10MG/ML) FOR IV START INTRADERMA ONE (08:05)
--- NOTE | 2017-01-23 09:02 | P.PCN ---
Date of Procedure: 01/23/17 Preoperative Diagnosis: Postoperative Diagnosis: Procedure(s) Performed: Preoperative diagnosis: Multiple sclerosis Post operative diagnoses: Multiple sclerosis Anesthesia local infiltration with lidocaine 1% 2 mL. and Versed 2 mg and fentanyl 100 g Condition: stable Complication: none. Description of the procedure procedure risk and benefits discussed with the patient and family, consent signed. Patient and the procedure area placed in left lateral decubitus position ( left side down ) back prepped with chlorhexidine 3 times been local infiltration of the skin and subcutaneous tissue with lidocaine 1% 2 mL for skin and subcu interstitial frustrations at L4 5 levels then 22-gauge Quincke-type needle advanced slowly at L4- 5 interlaminar space there was positive cerebrospinal fluid which was clear, no heme, no paresthesia , opening pressure was 25 cm of water ,total of 15 ML of clear cerebrospinal fluid collected in 4 different tubes ,, the closing pressure after we removed 15 ML of cerebrospinal fluid was 11 cm of water , then the needle removed and a Band-Aid applied and patient tolerated the procedure well without any complications. Opening pressure= 25 cm of water Closing pressure = 11 cm of water. Cerebrospinal fluid volume removed= 15 ML Implants: Indications for Procedure: Operative Findings: Description of Procedure:
[2017-01-23] MEDS ORDERED: IV FLUID CONTINUATION 1,000 ML IV ONE (09:05)
[2017-01-23 09:31] LABS: ALT 25 U/L (9-52); AST 17 U/L (14-36)
[2017-01-23 09:40] VITALS: BP 102/60; PULSE 73; RESP 16
[2017-01-23 09:45] LABS: Glucose,CSF 59 mg/dL (40-70)
[2017-01-23 10:33] LABS: Rheumatoid Factor, Qnt <9 IU/mL (<12)
[2017-01-23 10:48] LABS: Appearance,CSF Clear
[2017-01-23 16:38] LABS: Treponemal Ab Non-Reactive (Non-Reactive)
[2017-01-23 16:41] LABS: ANA w/Reflex to Titer NEGATIVE (NEGATIVE); RNP AB Interpretation NEGATIVE (NEGATIVE)
[2017-01-24 14:08] LABS: Lyme IgG/IgM 0.1 Index; Lyme IgG/IgM Interp NEGATIVE (NEGATIVE)
[2017-01-26 15:28] LABS: Lyme Specimen Source Not Provided
== END 2017-01-23 09:50 | disposition home or self-care (01) ==
LOC: ORPAIN 07:19
PROVIDERS: ATTEND Specialist
DX: G35 Multiple sclerosis (principal); Z88.5 Allergy status to narcotic agent; Z88.8 Allergy status to other drugs, medicaments and biological substances; Z91.041 Radiographic dye allergy status
CPT/HCPCS: 87476; 86592; 86235 ×3; 84439; 88108; 84157; 82945; 82040; 82042; 82784; 83916; 82164 ×2; 83873; 84443; 84450; 84460; 85730; 86431; 85613; 89050; 86618; 86780; 86038; 86225; 62270; 99152; J2250; J3010; 85732

== ENCOUNTER 2017-01-24 13:21 | Emergency (ER) | payer OTHER ==
[2017-01-24] MEDS ORDERED: diphenhydrAMINE 50 MG/ML 1 ML VIAL IVP STA (13:50)
[2017-01-24] MEDS ORDERED: METOCLOPRAMIDE 5 MG/ML 2 ML VIAL IVP STA (13:50)
[2017-01-24] MEDS ORDERED: CAFFEINE-SODIUM BENZOATE 500 MG in SODIUM CHLORIDE 0.9% 1,000 ML IVPB ONE (13:51)
[2017-01-24] MEDS ORDERED: KETOROLAC 30 MG/ML 1 ML VIAL IVP STA (13:58)
--- NOTE | 2017-01-24 14:01 | ED ---
General Adult HPI - General Chief complaint: Headache Stated complaint: N&V/post spinal tap Time Seen by Provider: 01/24/17 13:45 Source: patient, RN notes reviewed Mode of arrival: wheelchair Limitations: no limitations - History of Present Illness Initial comments: Patient is a 46-year-old female status post lumbar puncture, underwent a who presents emergency room today with chief complaint of headache. She does not that headache started last night approximately 8 PM. She does admit to being positional worse when she is up moving around. She states she's currently trying to lay down to make to headache pain. She does admit to photosensitivity with nausea. She denies any other complaints or symptoms at this time. Patient denies any recent fever, chills, shortness of breath, chest pain, back pain, abdominal pain, nausea or vomiting, numbness or tingling, dysuria or hematuria, constipation or diarrhea, visual changes, or any other complaints. - Related Data Home Medications Medication Instructions Recorded Confirmed HYDROcodone/APAP 10-325MG [[place] 1 tab PO QID PRN 02/16/14 01/24/17 10-325] diphenhydrAMINE [Benadryl] 50 mg PO HS 04/07/15 01/24/17 Levalbuterol Hfa Inhaler [Xopenex 2 puff INHALATION RT-BID PRN 12/25/15 01/24/17 Hfa Inhaler] Ranitidine HCl [Zantac] 150 mg PO HS PRN 12/25/15 01/24/17 ALPRAZolam [Xanax] 2 mg PO BID PRN 02/29/16 01/24/17 Ibuprofen [Motrin] 800 mg PO TID PRN 08/26/16 01/24/17 Allergies Allergy/AdvReac Type Severity Reaction Status Date / Time adhesive Allergy Unknown Rash/Hives Verified 01/24/17 14:00 Iodinated Contrast- Oral and Allergy Rash/Hives Verified 01/24/17 14:00 IV Dye [Iodinated Contrast Media - IV Dye] latex Allergy Rash/Hives Verified 01/24/17 14:00 morphine Allergy Rash/Hives Verified 01/24/17 14:00 albuterol AdvReac Rapid Verified 01/24/17 14:00 Heart Rate Review of Systems ROS Statement: Those systems with pertinent positive or pertinent negative responses have been documented in the HPI. ROS Other: All systems not noted in ROS Statement are negative. Past Medical History Past Medical History: COPD, Fibromyalgia, Osteoarthritis (OA), Pneumonia Additional Past Medical History / Comment(s): BACK PAIN, HEART PALPITATIONS, INSOMNIA, PULMONARY HTN. PT STATES ABSENCE OF RT LUNG PULMONARY ARTERY. History of Any Multi-Drug Resistant Organisms: None Reported Past Surgical History: Section, Cholecystectomy, Hysterectomy, Orthopedic Surgery Additional Past Surgical History / Comment(s): LIA CATARACTS, NECK SURG, right knee surgery Past Anesthesia/Blood Transfusion Reactions: No Reported Reaction, Motion Sickness Past Psychological History: Anxiety, Panic Disorder, PTSD Smoking Status: Current every day smoker Past Alcohol Use History: None Reported Past Drug Use History: None Reported - Past Family History Mother Family Medical History: Thyroid Disorder Father Family Medical History: Congestive Heart Failure (CHF) Additional Family Medical History / Comment(s): crohns Brother(s) Family Medical History: Diabetes Mellitus Daughter(s) Additional Family Medical History / Comment(s): hole in heart repaired Son(s) Additional Family Medical History / Comment(s): from aortic dissection General Exam - General Exam Comments Initial Comments: General: The patient is awake and alert, in no distress, and does not appear acutely ill. Eye: Pupils are equal, round and reactive to light, extra-ocular movements are intact. No nystagmus. There is normal conjunctiva bilaterally. No signs of icterus. Ears, nose, mouth and throat: There are moist mucous membranes and no oral lesions. Neck: The neck is supple, there is no tenderness or JVD. Cardiovascular: There is a regular rate and rhythm. No murmur, rub or gallop is appreciated. Respiratory: Lungs are clear to auscultation, respirations are non-labored, breath sounds are equal. No wheezes, stridor, rales, or rhonchi. Musculoskeletal: Normal ROM, no tenderness. Strength 5/5. Sensation intact. Pulses equal bilaterally 2+. Neurological: A&O x 3. CN II-XII intact, There are no obvious motor or sensory deficits. Coordination appears grossly intact. Speech is normal. Skin: Skin is warm and dry and no rashes or lesions are noted. Psychiatric: Cooperative, appropriate mood & affect, normal judgment. Limitations: no limitations Course Vital Signs 09/01/0201/24/17 01/24/17 13:25 14:44 15:09 Temperature 98.1 F Pulse Rate 94 84 81 Respiratory 20 18 18 Rate Blood Pressure 116/67 95/54 101/59 O2 Sat by Pulse 99 99 99 Oximetry Medical Decision Making - Medical Decision Making Patient reexamined at this time shows no signs of distress. She was seen by anesthesiology here in the emergency room had a blood patch performed. She feels much better at this time will be discharged home advised to return for any other concerns. Disposition Clinical Impression: Post lumbar puncture headache Disposition: HOME SELF-CARE Condition: Good Instructions: Acute Headache (ED) Additional Instructions: Please use medication as discussed. Please follow-up with family doctor in the next 2 days of symptoms have not improved. Please return to emergency room if the symptoms increase or worsen or for any other concerns. Referrals: Beto Hernandez MD [Primary Care Provider] - 1-2 days Time of Disposition: 16:09
[2017-01-24 14:45] VITALS: RESP 18
--- NOTE | 2017-01-24 15:25 | P.PN ---
Progress Note - Text Anesthesia was consulted to evaluate a patient that has symptoms and signs of a post dural puncture headache. The patient received a spinal yesterday. The patient states that her headache started last evening about 8pm.The headache increases in severity when she is standing and sitting. Her headache symptoms subside when she is in the supine position. The patient has tried a course of conservative therapy including fluids, caffeine and pain meds. The conservative treatment has not relieved her headache symptoms when she is in the sitting and standing position. Patient states she feels pain in the back of her neck up into her temporal and frontal regions. Patient does exhibit some photophobia. The patient does report some nausea at this time. Continued conservative treatment versus lumbar epidural blood patch to treat her headache were options given to the patient. The patient requested a lumbar epidural blood patch to be performed to treat her headache today. Procedure: The procedure and its risks and benefits were explained to the patient. The patient understood and consented to have a lumbar epidural epidural blood patch performed. The patient was placed in the sitting position. The patient's low back was sterilely prepped and draped. An 18- gauge Touhy was placed in the patient's epidural space at L3-L4 without difficulty. No CSF or blood was observed. Then approximately[15 ] mL's of the patient's autologous blood was injected in the epidural space incrementally. Patient's blood was drawn by an physical therapy assistant under sterile conditions. The patient then noticed a decrease intensity of her headache in the sitting position almost immediately. The patient was then placed in the supine position. She tolerated the procedure well. The patient was instructed to remain at bed rest for the next 2-3 hours after she gets home from the emergency room.. She also was instructed to continue with fluids and any pain medicines as needed. The patient was also instructed to refrain from any bending or lifting for the next few days.
[2017-01-24 16:27] VITALS: BP 102/62; PULSE 80; TEMP 97.7
== END 2017-01-24 16:20 | disposition home or self-care (01) ==
LOC: EC 13:21
DX: G97.1 Other reaction to spinal and lumbar puncture (principal); F17.200 Nicotine dependence, unspecified, uncomplicated; Z79.899 Other long term (current) drug therapy; Z88.5 Allergy status to narcotic agent; Z88.8 Allergy status to other drugs, medicaments and biological substances; Z91.040 Latex allergy status; Z91.041 Radiographic dye allergy status; Z91.09 Other allergy status, other than to drugs and biological substances
CPT/HCPCS: 96365 ×2; 96375 ×4; 62273 ×2; 99283; J1200; J2765; J1885

== ENCOUNTER 2017-07-24 21:55 | Emergency (ER) | payer OTHER ==
[2017-07-24] MEDS ORDERED: RX INFO: IV CONTRAST WAS GIVEN 1 EACH MISC MISCELLANE PRN (22:49)
[2017-07-24] MEDS ORDERED: diphenhydrAMINE 50 MG/ML 1 ML VIAL IVP STA (22:50)
[2017-07-24] MEDS ORDERED: FAMOTIDINE 20 MG/2 ML VIAL IV STA (22:50)
[2017-07-24] MEDS ORDERED: methylPREDNISolone SOD SUCCI 125 MG/2 ML VIAL IV STA (22:50)
[2017-07-24] MEDS ORDERED: HYDROcodone/APAP 5-325MG 1 EACH TAB PO STA (22:51)
[2017-07-24 23:11] LABS: Basophils % (A) 0 %; Eosinophils # (A) 0.3 k/uL (0-0.7); Eosinophils % (A) 2 %; HCT 46.7 % (34.0-46.0); HGB 15.1 gm/dL (11.4-16.0); Lymphocytes # (A) 3.2 k/uL (1.0-4.8); Lymphocytes % (A) 23 %; MCH 29.1 pg (25.0-35.0); MCHC 32.3 g/dL (31.0-37.0); MCV 90.1 fL (80.0-100.0); Mean Platelet Volume 6.9; Monocytes # (A) 0.9 k/uL (0-1.0); Monocytes % (A) 7 %; Neutrophils # (A) 9.5 k/uL (1.3-7.7); Neutrophils % (A) 67 %; Platelet Count 437 k/uL (150-450); RBC 5.18 m/uL (3.80-5.40); RDW 13.7 % (11.5-15.5); WBC 14.1 k/uL (3.8-10.6)
[2017-07-24 23:22] LABS: ALT 15 U/L (9-52); AST 16 U/L (14-36); Albumin 4.4 g/dL (3.5-5.0); Alkaline Phosphatase 79 U/L (38-126); Anion Gap 11 mmol/L; Blood Urea Nitrogen 12 mg/dL (7-17); Calcium 9.9 mg/dL (8.4-10.2); Carbon Dioxide 26 mmol/L (22-30); Chloride 106 mmol/L (98-107); Glucose 94 mg/dL (74-99); Potassium 4.1 mmol/L (3.5-5.1); Sodium 143 mmol/L (137-145); Total Bilirubin 0.4 mg/dL (0.2-1.3); Total Protein 7.4 g/dL (6.3-8.2)
[2017-07-24 23:29] LABS: Partial Thromboplastin Time 23.3 sec (22.0-30.0); Prothrombin Time 9.5 sec (9.0-12.0)
[2017-07-24] MEDS ORDERED: HYDROcodone/APAP 10-325MG 1 EACH TAB PO ONE (23:38)
[2017-07-24] MEDS ORDERED: LORazepam 1 MG TAB PO STA (23:38)
[2017-07-24 23:49] LABS: Appearance,Urine Clear (Clear); Bilirubin,Urine Negative (Negative); Blood,Urine Moderate (Negative); Budding Yeast,Urine Rare /hpf; Color,Urine Yellow; Glucose,Urine (UA) Negative (Negative); Ketones,Urine Negative (Negative); Leukocyte Esterase,Urine Negative (Negative); Mucus,Urine Rare /hpf; PH, Urine 5.5 (5.0-8.0); Protein,Urine Negative (Negative); RBC,Urine 14 /hpf (0-5); Specific Gravity,Urine 1.014 (1.001-1.035); Squamous Epithelial Cell,Urine 2 /hpf (0-4); Urobilinogen,Urine <2.0 mg/dL (<2.0); WBC,Urine <1 /hpf (0-5)
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
--- NOTE | 2017-07-25 00:26 | XR ---
EXAMINATION TYPE: XR hand complete RT DATE OF EXAM: 07/25/2017 COMPARISON: NONE HISTORY: Pain TECHNIQUE: 3 views FINDINGS: I see no fracture nor dislocation. Metacarpals are intact. There is developmentally short m iddle phalanx of the little finger. IMPRESSION: No acute abnormality of the right hand.
--- NOTE | 2017-07-25 00:26 | XR ---
EXAMINATION TYPE: XR wrist complete RT DATE OF EXAM: 07/25/2017 COMPARISON: NONE HISTORY: Wrist pain TECHNIQUE: 4 views FINDINGS: I see no fracture nor dislocation. Joint spaces are normal. Scaphoid appears normal. IMPRESSION: Normal right wrist.
[2017-07-25 01:33] VITALS: BP 123/70; PULSE 86; RESP 16; TEMP 97.6
== END 2017-07-25 01:33 | disposition home or self-care (01) ==
LOC: EC 21:55
DX: S39.012A Strain of muscle, fascia and tendon of lower back, initial encounter (principal); S60.221A Contusion of right hand, initial encounter; J98.4 Other disorders of lung; R00.0 Tachycardia, unspecified; R07.9 Chest pain, unspecified; R10.30 Lower abdominal pain, unspecified; F17.200 Nicotine dependence, unspecified, uncomplicated; Z79.899 Other long term (current) drug therapy; Z88.5 Allergy status to narcotic agent; Z88.8 Allergy status to other drugs, medicaments and biological substances; Z91.040 Latex allergy status; Z91.041 Radiographic dye allergy status; Z91.09 Other allergy status, other than to drugs and biological substances; Z90.49 Acquired absence of other specified parts of digestive tract; Z82.49 Family history of ischemic heart disease and other diseases of the circulatory system; V49.40XA Driver injured in collision with unspecified motor vehicles in traffic accident, initial encounter; Y92.410 Unspecified street and highway as the place of occurrence of the external cause
CPT/HCPCS: 36415; 93005; 80053; 85025; 85610; 85730; 81001; 73110; 73130; 71260; 74177; 99284; 96374; 96375 ×2; 29125; J1200; J2930; Q9967

== ENCOUNTER → 2017-11-25 | Outpatient (CLI) | payer OTHER ==
--- NOTE | 2017-11-25 14:48 | XR ---
EXAMINATION TYPE: XR cervical spine comp DATE OF EXAM: 11/25/2017 TECHNIQUE: Frontal, lateral, oblique, and open mouth view of the cervical spine are obtained. HISTORY: M54.2 back pain neck pain after fusion 2013 per patient. COMPARISON: CT cervical spine August 09, 2015. FINDINGS: The cervical spine is visualized in its entirety from C1 thru the inferior C7 level on lat eral projection, it is stable and satisfactory in alignment without evidence of acute fracture or dis location. There is subtle grade 1 retrolisthesis of C4 on C5 redemonstrated. The pre-vertebral soft tissue appears within normal limits. The C1-C2 articulation is within normal limits on the open mout h view. There is persistent anterior fusion plate C4-C7 levels with artificial disc material at thes e levels. Vertebral body heights and disc space heights above C4 level are satisfactory. There is sub optimal evaluation of C7-T1 level without dedicated swimmer's view. The oblique images show some neur al foraminal narrowing at cervical levels due to marginal spurring bilaterally. Overlying soft tissue is unremarkable. IMPRESSION: As above, no significant change from comparison CT.
== END ==
LOC: RADXRMAIN 14:13
PROVIDERS: ATTEND Family Medicine
DX: M99.71 Connective tissue and disc stenosis of intervertebral foramina of cervical region (principal); M43.12 Spondylolisthesis, cervical region; Z98.1 Arthrodesis status
CPT/HCPCS: 72050

== ENCOUNTER 2018-03-01 18:30 | Emergency (ER) | payer OTHER ==
[2018-03-01 18:44] VITALS: TEMP 97.5
[2018-03-01] MEDS ORDERED: NITROGLYCERIN SL TABS 0.4 MG TAB SUBLINGUAL STA (18:58)
--- NOTE | 2018-03-01 19:02 | ED ---
Chest Pain HPI - General Chief Complaint: Chest Pain Stated Complaint: chest pain Time Seen by Provider: 03/01/18 18:47 Source: patient, RN notes reviewed, old records reviewed Mode of arrival: wheelchair Limitations: no limitations - History of Present Illness Initial Comments: Patient's a 47-year-old female presents emergency room stay with chief complaint of chest pain that started today. Patient states that she also is having pain with taking a deep breath and has noticed that she's been wheezing. She is a smoker. She denies any recent fever or chills. Patient states she has history of hyperlipidemia and hypertension. Dr. Hernandez is her PCP and she does see Dr. Echols for pulmonology. Patient states that she has had episodes of dizziness and lightheadedness. [facility] sent her directly here. - Related Data Home Medications Medication Instructions Recorded Confirmed HYDROcodone/APAP 10-325MG [[place] 1 tab PO QID PRN 02/16/14 07/24/17 10-325] diphenhydrAMINE [Benadryl] 50 mg PO HS 04/07/15 07/24/17 Levalbuterol Hfa Inhaler [Xopenex 2 puff INHALATION RT-BID PRN 12/25/15 07/24/17 Hfa Inhaler] Ranitidine HCl [Zantac] 150 mg PO HS PRN 12/25/15 07/24/17 ALPRAZolam [Xanax] 2 mg PO BID PRN 02/29/16 07/24/17 Ibuprofen [Motrin] 800 mg PO TID PRN 08/26/16 07/24/17 Previous Rx's Medication Instructions Recorded Ibuprofen [Motrin] 600 mg PO Q8HR PRN #30 tab 07/25/17 Ketorolac [Toradol] 10 mg PO TID #10 tab 03/01/18 methylPREDNISolone Dose Pack 4 mg PO DIRECTED #21 package 03/01/18 [Medrol Dose Pack] Allergies Allergy/AdvReac Type Severity Reaction Status Date / Time adhesive Allergy Unknown Rash/Hives Verified 03/01/18 18:44 Iodinated Contrast- Oral and Allergy Rash/Hives Verified 03/01/18 18:44 IV Dye [Iodinated Contrast Media - IV Dye] latex Allergy Rash/Hives Verified 03/01/18 18:44 morphine Allergy Rash/Hives Verified 03/01/18 18:44 albuterol AdvReac Rapid Verified 03/01/18 18:44 Heart Rate Review of Systems ROS Statement: Those systems with pertinent positive or pertinent negative responses have been documented in the HPI. ROS Other: All systems not noted in ROS Statement are negative. EKG Findings - EKG Comments: EKG Findings:: EKG performed on 1851 shows normal sinus rhythm abnormal EKG. Ventricular rate 90 bpm. OK interval is 1:30 milliseconds. QRS duration 80 ms. QT QTc is 346/441 ms. No evidence of ST elevation or T-wave inversions. No evidence of atrial or ventricular arrhythmias. Past Medical History Past Medical History: COPD, Fibromyalgia, Osteoarthritis (OA), Pneumonia Additional Past Medical History / Comment(s): BACK PAIN, HEART PALPITATIONS, INSOMNIA, PULMONARY HTN. PT STATES ABSENCE OF RT LUNG PULMONARY ARTERY. History of Any Multi-Drug Resistant Organisms: None Reported Past Surgical History: Section, Cholecystectomy, Hysterectomy, Orthopedic Surgery Additional Past Surgical History / Comment(s): LIA CATARACTS, NECK SURG, right knee surgery Past Anesthesia/Blood Transfusion Reactions: No Reported Reaction, Motion Sickness Past Psychological History: Anxiety, Panic Disorder, PTSD Smoking Status: Current every day smoker Past Alcohol Use History: None Reported Past Drug Use History: None Reported - Past Family History Mother Family Medical History: Thyroid Disorder Father Family Medical History: Congestive Heart Failure (CHF) Additional Family Medical History / Comment(s): crohns Brother(s) Family Medical History: Diabetes Mellitus Daughter(s) Additional Family Medical History / Comment(s): hole in heart repaired Son(s) Additional Family Medical History / Comment(s): from aortic dissection General Exam - General Exam Comments Initial Comments: Patient is a 47-year-old female. Alert and oriented 3. No significant distress. Limitations: no limitations General appearance: alert, in no apparent distress Head exam: Present: atraumatic, normocephalic, normal inspection Eye exam: Present: normal appearance, PERRL, EOMI. Absent: scleral icterus, conjunctival injection, periorbital swelling ENT exam: Present: normal exam, mucous membranes moist Neck exam: Present: normal inspection. Absent: tenderness, meningismus, lymphadenopathy Respiratory exam: Present: normal lung sounds bilaterally, wheezes (Light wheeze on deep expiration.), chest wall tenderness (over thoracic paraspinal muscle and posterior ribs. ), other. Absent: respiratory distress, rales, rhonchi, stridor Cardiovascular Exam: Present: regular rate, normal rhythm, normal heart sounds. Absent: systolic murmur, diastolic murmur, rubs, gallop, clicks GI/Abdominal exam: Present: soft, normal bowel sounds. Absent: distended, tenderness, guarding, rebound, rigid Course Vital Signs 03/01/18 03/01/18 03/01/18 18:42 18:58 19:00 Temperature 97.5 F L Pulse Rate 100 98 96 Respiratory 18 10 L 10 L Rate Blood Pressure 106/66 108/70 O2 Sat by Pulse 98 95 98 Oximetry 03/01/18 03/01/18 03/01/18 19:10 19:20 19:30 Temperature Pulse Rate 93 96 Respiratory 16 15 Rate Blood Pressure 101/70 101/70 101/70 O2 Sat by Pulse Oximetry 03/01/18 03/01/18 03/01/18 19:40 19:50 20:00 Temperature Pulse Rate 90 92 93 Respiratory 8 L 10 L 16 Rate Blood Pressure 101/70 101/70 101/70 O2 Sat by Pulse 100 98 Oximetry 03/01/18 03/01/18 20:10 20:20 Temperature Pulse Rate 89 93 Respiratory 13 16 Rate Blood Pressure 109/64 109/64 O2 Sat by Pulse 98 98 Oximetry Chest Pain MDM - MDM 47 year old female presents with chest pain and wheezing since 12 pm. Patient pain is reproducible to palpation of back. She has minimal wheezing. Patient offered duoneb treatment, refused due to albuterol raising her heart rate. Patient given IV solumedrol toradol with some relief. Patient CXR and EKG were reviewed and normal. No ST changes noted. Patient had normal lab work including Ddimer, troponin. Patient advised that due to lengthof time for her symptoms, no concern for cardiac origin of pain at this time with normal troponin. Discussed starting patient on antiinflammatory medication and steriods. Patient understands treatment planand will comply. Disposition Clinical Impression: Chest wall pain, Wheezing on exhalation Disposition: HOME SELF-CARE Condition: Good Instructions: Costochondritis (ED), Acute Bronchitis (ED) Additional Instructions: Patient advised to take the medication as prescribed. Follow-up with primary care physician within the next 1-2 days.. Return to the emergency department if any alarming signs or symptoms occur. Prescriptions: Ketorolac [Toradol] 10 mg PO TID #10 tab methylPREDNISolone Dose Pack [Medrol Dose Pack] 4 mg PO DIRECTED #21 package Is patient prescribed a controlled substance at d/c from ED?: No Referrals: Beto Hernandez MD [Primary Care Provider] - 1-2 days Time of Disposition: 20:26
[2018-03-01] MEDS: IPRATROPIUM-ALBUTEROL 3 ML NEB INHALATION STA ×2 (19:18→19:19)
--- NOTE | 2018-03-01 19:20 | XR ---
EXAMINATION TYPE: XR chest 2V DATE OF EXAM: 03/01/2018 COMPARISON: 10/09/2017 HISTORY: Chest pain TECHNIQUE: Frontal and lateral views of the chest are obtained. FINDINGS: Heart and mediastinum are normal. Lungs are clear. Diaphragm is normal. Bony thorax is int act. There are chest leads. IMPRESSION: Normal chest. No change.
[2018-03-01 19:21] LABS: Basophils # (A) 0.1 k/uL (0-0.2); Basophils % (A) 0 %; Eosinophils # (A) 0.3 k/uL (0-0.7); Eosinophils % (A) 3 %; HCT 48.2 % (34.0-46.0); HGB 15.5 gm/dL (11.4-16.0); Lymphocytes # (A) 3.4 k/uL (1.0-4.8); Lymphocytes % (A) 27 %; MCH 29.3 pg (25.0-35.0); MCHC 32.1 g/dL (31.0-37.0); MCV 91.1 fL (80.0-100.0); Mean Platelet Volume 6.6; Monocytes # (A) 0.7 k/uL (0-1.0); Monocytes % (A) 6 %; Neutrophils # (A) 7.9 k/uL (1.3-7.7); Neutrophils % (A) 63 %; Platelet Count 459 k/uL (150-450); RBC 5.29 m/uL (3.80-5.40); RDW 13.6 % (11.5-15.5); WBC 12.6 k/uL (3.8-10.6)
[2018-03-01 19:32] LABS: ALT 21 U/L (9-52); AST 25 U/L (14-36); Albumin 4.3 g/dL (3.5-5.0); Alkaline Phosphatase 71 U/L (38-126); Amylase 77 U/L (30-110); Blood Urea Nitrogen 10 mg/dL (7-17); Calcium 9.8 mg/dL (8.4-10.2); Carbon Dioxide 25 mmol/L (22-30); Glucose 95 mg/dL (74-99); Lipase 138 U/L (23-300); Magnesium 2.1 mg/dL (1.6-2.3); Total Bilirubin 0.6 mg/dL (0.2-1.3); Total Protein 7.7 g/dL (6.3-8.2)
[2018-03-01 19:34] LABS: D-Dimer 0.19 mg/L FEU (<0.60); Partial Thromboplastin Time 24.2 sec (22.0-30.0); Prothrombin Time 9.6 sec (9.0-12.0)
[2018-03-01 19:37] LABS: Anion Gap 9 mmol/L; Chloride 106 mmol/L (98-107); Sodium 140 mmol/L (137-145)
[2018-03-01 19:41] LABS: Potassium 4.7 mmol/L (3.5-5.1)
[2018-03-01 19:49] LABS: Creatine Kinase 48 U/L (30-135)
[2018-03-01 20:02] LABS: Creatine Kinase MB 0.3 ng/mL (0.0-2.4); Troponin I <0.012 ng/mL (0.000-0.034)
[2018-03-01] MEDS ORDERED: methylPREDNISolone SOD SUCCI 125 MG/2 ML VIAL IV STA (20:05)
[2018-03-01] MEDS ORDERED: KETOROLAC 30 MG/ML 1 ML VIAL IVP STA (20:12)
[2018-03-01 20:22] VITALS: BP 109/64; PULSE 93; RESP 16
== END 2018-03-01 20:51 | disposition home or self-care (01) ==
LOC: EC 18:30
DX: R07.89 Other chest pain (principal); R06.2 Wheezing; R42 Dizziness and giddiness; J44.9 Chronic obstructive pulmonary disease, unspecified; M79.7 Fibromyalgia; M19.90 Unspecified osteoarthritis, unspecified site; F17.200 Nicotine dependence, unspecified, uncomplicated; Z79.899 Other long term (current) drug therapy; Z53.29 Procedure and treatment not carried out because of patient's decision for other reasons; Z91.040 Latex allergy status; Z91.041 Radiographic dye allergy status; Z88.5 Allergy status to narcotic agent; Z88.8 Allergy status to other drugs, medicaments and biological substances; Z91.048 Other nonmedicinal substance allergy status
CPT/HCPCS: 36415; 85379; 80053; 82150; 82550; 82553; 83690; 83735; 84484; 85025; 85610; 85730; 71046; 99285; 96374; 96375; J2930; J1885

== ENCOUNTER 2018-03-02 08:53 | Emergency (ER) | payer OTHER ==
[2018-03-02 09:00] VITALS: TEMP 97.5
[2018-03-02] MEDS ORDERED: LORazepam 2 MG/ML INJ IV STA (09:25)
--- NOTE | 2018-03-02 09:29 | ED ---
General Adult HPI - General Chief complaint: Chest Pain Stated complaint: Chest pain/sob/ found lump on chest Source: patient Mode of arrival: wheelchair Limitations: no limitations - History of Present Illness Initial comments: Dictation was produced using [employer] dictation software. please excuse any grammatical, word or spelling errors. Chief Complaint: 47-year-old female past medical history of posterior medics stress disorder, congenital absence of pulmonary artery, multiple ALLERGIES presents with persistent left anterior chest pain. History of Present Illness: Patient is a 47-year-old female past medical history of PTSD, anxiety, COPD presents with left anterior chest pain. She states she feels a bump over her left anterior chest. Patient was seen here yesterday where she was value for the chest pain. X-rays and labs were all performed. Patient was diagnosed with bronchitis given prescriptions. States that she was unable to fill the prescriptions because she was discharged late in the evening and all pharmacies are closed. Patient states she is also having some lightheadedness along with this pain. Denies any other symptoms. She describes pain is sharp. The ROS documented in this emergency department record has been reviewed and confirmed by me. Those systems with pertinent positive or negative responses have been documented in the HPI. All other systems are other negative and/or noncontributory. - Related Data Home Medications Medication Instructions Recorded Confirmed HYDROcodone/APAP 10-325MG [[place] 1 tab PO QID PRN 02/16/14 03/02/18 10-325] diphenhydrAMINE [Benadryl] 50 mg PO HS 04/07/15 03/02/18 Levalbuterol Hfa Inhaler [Xopenex 2 puff INHALATION RT-BID PRN 12/25/15 03/02/18 Hfa Inhaler] ALPRAZolam [Xanax] 2 mg PO BID PRN 02/29/16 03/02/18 Ibuprofen [Motrin] 800 mg PO TID PRN 08/26/16 03/02/18 Allergies Allergy/AdvReac Type Severity Reaction Status Date / Time adhesive Allergy Unknown Rash/Hives Verified 03/02/18 09:26 Iodinated Contrast- Oral and Allergy Rash/Hives Verified 03/02/18 09:26 IV Dye [Iodinated Contrast Media - IV Dye] latex Allergy Rash/Hives Verified 03/02/18 09:26 morphine Allergy Rash/Hives Verified 03/02/18 09:26 albuterol AdvReac Rapid Verified 03/02/18 09:26 Heart Rate Review of Systems ROS Statement: Those systems with pertinent positive or pertinent negative responses have been documented in the HPI. ROS Other: All systems not noted in ROS Statement are negative. Past Medical History Past Medical History: COPD, Fibromyalgia, Osteoarthritis (OA), Pneumonia Additional Past Medical History / Comment(s): BACK PAIN, HEART PALPITATIONS, INSOMNIA, PULMONARY HTN. PT STATES ABSENCE OF RT LUNG PULMONARY ARTERY. History of Any Multi-Drug Resistant Organisms: None Reported Past Surgical History: Section, Cholecystectomy, Hysterectomy, Orthopedic Surgery Additional Past Surgical History / Comment(s): LIA CATARACTS, NECK SURG, right knee surgery Past Anesthesia/Blood Transfusion Reactions: No Reported Reaction, Motion Sickness Past Psychological History: Anxiety, Panic Disorder, PTSD Smoking Status: Current every day smoker Past Alcohol Use History: None Reported Past Drug Use History: None Reported - Past Family History Mother Family Medical History: Thyroid Disorder Father Family Medical History: Congestive Heart Failure (CHF) Additional Family Medical History / Comment(s): crohns Brother(s) Family Medical History: Diabetes Mellitus Daughter(s) Additional Family Medical History / Comment(s): hole in heart repaired Son(s) Additional Family Medical History / Comment(s): from aortic dissection General Exam - General Exam Comments Initial Comments: PHYSICAL EXAM: General Impression: Alert and oriented x3, not in acute distress HEENT: Normocephalic atraumatic, extra-ocular movements intact, pupils equal and reactive to light bilaterally, mucous membranes moist. Cardiovascular: Heart regular rate and rhythm, S1&S2 audible, no murmurs, rubs or gallops Chest: Lungs clear to auscultation bilaterally, no rhonchi, no wheeze, no rales , exquisite tenderness to the left anterior chest over the rib. Abdomen: Bowel sounds present, abdomen soft, non-tender, non-distended, no organomegaly Musculoskeletal: Pulses present and equal in all extremities, no peripheral edema Motor: Power 5/5 bilaterally, no focal deficits noted Neurological: CN II-XII grossly intact, no focal motor or sensory deficits noted Skin: Intact with no visualized rashes Psych: Normal affect and mood Limitations: no limitations Course Vital Signs 03/02/18 08:58 Temperature 97.5 F L Pulse Rate 104 H Respiratory 20 Rate Blood Pressure 120/67 O2 Sat by Pulse 99 Oximetry Medical Decision Making - Medical Decision Making ED course: 47 yo female with multiple comorbidities presents with tenderness to palpation of the left anterior chest. She states she feels a bump over that area. Vital signs upon arrival shows heart rate of 104. Rest of vital signs unremarkable. Patient was evaluated yesterday were multiple laboratory evaluations were obtained. She had a negative d-dimer. Negative troponin. Rest R otherwise unremarkable. Patient's pain is fairly atypical. She does have exact point tenderness over the left anterior chest. Return evaluation obtained. Leukocytosis of 11.4 likely secondary to stress. Metabolic panel is unremarkable. Cardiac enzymes are negative. Review try transfer positive for opiates. Patient is really concerned about her pain. Shortness is making was performed the patient requested a CT. Given the patient is having exquisite tenderness CT chest without contrast was obtained showing no acute processes. However chronic parenchymal changes. Patient given lidocaine patch for pain. Patient counseled on costochondritis. She still to follow-up with a pain specialist. Patient is exhibiting some drug- seeking behavior. Chart history was performed patient had a PMPRX score of 530. Patient given 1 dose of Dilaudid request given that she is having difficulty sleeping and is ALLERGIC to all pain medications. Patient be discharged. She does have chest condition with her mother. EKG interpretation: Ventricular rate 94, normal sinus rhythm, VT interval 170, QRS 80, QTc 437. No VT prolongation, no QTC prolongation, no ST or T-wave changes noted. . Overall, this EKG is unremarkable - Lab Data Result diagrams: 03/02/18 09:53 03/02/18 09:53 Lab Results 03/02/18 03/02/18 03/02/18 Range/Units 09:53 09:53 09:53 WBC 11.4 H (3.8-10.6) k/uL RBC 4.99 (3.80-5.40) m/uL Hgb 15.2 (11.4-16.0) gm/dL Hct 46.4 H (34.0-46.0) % MCV 93.0 (80.0-100.0) fL MCH 30.4 (25.0-35.0) pg MCHC 32.7 (31.0-37.0) g/dL RDW 13.4 (11.5-15.5) % Plt Count 413 (150-450) k/uL Neutrophils % 87 % Lymphocytes % 11 % Monocytes % 2 % Eosinophils % 0 % Basophils % 0 % Neutrophils # 9.9 H (1.3-7.7) k/uL Lymphocytes # 1.3 (1.0-4.8) k/uL Monocytes # 0.2 (0-1.0) k/uL Eosinophils # 0.0 (0-0.7) k/uL Basophils # 0.0 (0-0.2) k/uL Sodium 139 (137-145) mmol/L Potassium 4.8 (3.5-5.1) mmol/L Chloride 106 (98-107) mmol/L Carbon Dioxide 22 (22-30) mmol/L Anion Gap 11 mmol/L BUN 12 (7-17) mg/dL Creatinine 0.70 (0.52-1.04) mg/dL Est GFR (CKD-EPI)AfAm >90 (>60 ml/min/1.73 sqM) Est GFR (CKD-EPI)NonAf >90 (>60 ml/min/1.73 sqM) Glucose 142 H (74-99) mg/dL Calcium 10.0 (8.4-10.2) mg/dL Troponin I <0.012 (0.000-0.034) ng/mL Urine Opiates Screen (NotDetected) Ur Oxycodone Screen (NotDetected) Urine Methadone Screen (NotDetected) Ur Propoxyphene Screen (NotDetected) Ur Barbiturates Screen (NotDetected) U Tricyclic Antidepress (NotDetected) Ur Phencyclidine Scrn (NotDetected) Ur Amphetamines Screen (NotDetected) U Methamphetamines Scrn (NotDetected) U Benzodiazepines Scrn (NotDetected) Urine Cocaine Screen (NotDetected) U Marijuana (THC) Screen (NotDetected) 03/02/18 Range/Units 10:20 WBC (3.8-10.6) k/uL RBC (3.80-5.40) m/uL Hgb (11.4-16.0) gm/dL Hct (34.0-46.0) % MCV (80.0-100.0) fL MCH (25.0-35.0) pg MCHC (31.0-37.0) g/dL RDW (11.5-15.5) % Plt Count (150-450) k/uL Neutrophils % % Lymphocytes % % Monocytes % % Eosinophils % % Basophils % % Neutrophils # (1.3-7.7) k/uL Lymphocytes # (1.0-4.8) k/uL Monocytes # (0-1.0) k/uL Eosinophils # (0-0.7) k/uL Basophils # (0-0.2) k/uL Sodium (137-145) mmol/L Potassium (3.5-5.1) mmol/L Chloride (98-107) mmol/L Carbon Dioxide (22-30) mmol/L Anion Gap mmol/L BUN (7-17) mg/dL Creatinine (0.52-1.04) mg/dL Est GFR (CKD-EPI)AfAm (>60 ml/min/1.73 sqM) Est GFR (CKD-EPI)NonAf (>60 ml/min/1.73 sqM) Glucose (74-99) mg/dL Calcium (8.4-10.2) mg/dL Troponin I (0.000-0.034) ng/mL Urine Opiates Screen Detected H (NotDetected) Ur Oxycodone Screen Not Detected (NotDetected) Urine Methadone Screen Not Detected (NotDetected) Ur Propoxyphene Screen Not Detected (NotDetected) Ur Barbiturates Screen Not Detected (NotDetected) U Tricyclic Antidepress Not Detected (NotDetected) Ur Phencyclidine Scrn Not Detected (NotDetected) Ur Amphetamines Screen Not Detected (NotDetected) U Methamphetamines Scrn Not Detected (NotDetected) U Benzodiazepines Scrn Not Detected (NotDetected) Urine Cocaine Screen Not Detected (NotDetected) U Marijuana (THC) Screen Not Detected (NotDetected) Disposition Clinical Impression: Costochondritis Disposition: HOME SELF-CARE Condition: Good Instructions: Costochondritis (ED) Is patient prescribed a controlled substance at d/c from ED?: No Referrals: Beto Hernandez MD [Primary Care Provider] - 1-2 days Time of Disposition: 11:26
[2018-03-02 10:25] LABS: Basophils % (A) 0 %; Eosinophils % (A) 0 %; HCT 46.4 % (34.0-46.0); HGB 15.2 gm/dL (11.4-16.0); Lymphocytes # (A) 1.3 k/uL (1.0-4.8); Lymphocytes % (A) 11 %; MCH 30.4 pg (25.0-35.0); MCHC 32.7 g/dL (31.0-37.0); Mean Platelet Volume 6.9; Monocytes # (A) 0.2 k/uL (0-1.0); Monocytes % (A) 2 %; Neutrophils # (A) 9.9 k/uL (1.3-7.7); Neutrophils % (A) 87 %; Platelet Count 413 k/uL (150-450); RBC 4.99 m/uL (3.80-5.40); RDW 13.4 % (11.5-15.5); WBC 11.4 k/uL (3.8-10.6)
[2018-03-02 10:34] LABS: Anion Gap 11 mmol/L; Blood Urea Nitrogen 12 mg/dL (7-17); Carbon Dioxide 22 mmol/L (22-30); Chloride 106 mmol/L (98-107); Glucose 142 mg/dL (74-99); Potassium 4.8 mmol/L (3.5-5.1); Sodium 139 mmol/L (137-145)
[2018-03-02 10:44] LABS: Amphetamine Screen,Urine Not Detected (NotDetected); Barbiturate Screen,Urine Not Detected (NotDetected); Benzodiazepines Screen,Urine Not Detected (NotDetected); Cocaine Screen,Urine Not Detected (NotDetected); Methadone Screen, Urine Not Detected (NotDetected); Opiate Screen,Urine Detected (NotDetected); Oxycodone Screen, Urine Not Detected (NotDetected); Phencyclidine Screen,Urine Not Detected (NotDetected); Tricyclic Antidepressant,Urine Not Detected (NotDetected); Urn Cannabinoid Scrn Not Detected (NotDetected)
--- NOTE | 2018-03-02 10:47 | CT ---
EXAMINATION TYPE: CT chest wo con DATE OF EXAM: 03/02/2018 COMPARISON: CT chest July 24, 2017 HISTORY: Chest pain for [address] DLP: 237.2 mGycm. Automated Exposure Control for Dose Reduction was Utilized. TECHNIQUE: CT scan of the thorax is performed without IV contrast. FINDINGS: LUNGS: There is moderate right greater than left biapical pleural/parenchymal scarring. Elevated righ t hemidiaphragm is redemonstrated. There is patchy bibasilar linear atelectasis and/or scarring. Some mild pleural thickening right middle lobe with adjacent scarring remains present. No suspicious new consolidation or groundglass opacity. No pleural effusion or pneumothorax is seen. Mild central perib ronchial wall thickening is redemonstrated more prominent in the right lung. There is calcified 3 mm nodule anterior left midlung axial image 21. No suspicious greater than 5 mm noncalcified nodules are present. MEDIASTINUM: Lack of IV contrast is noted to limit evaluation for mediastinal and especially hilar ad enopathy. There are no definitive greater than 1 cm noncalcified hilar or mediastinal lymph nodes. T here are prominent but calcified prevascular and paratracheal lymph nodes. No cardiomegaly or pericar dial effusion is seen. Not visualized right pulmonary artery redemonstrated seen better on contrast e nhanced study. OTHER: Cholecystectomy clips are noted. IMPRESSION: Chronic parenchymal changes without suspicious acute pulmonary process
[2018-03-02] MEDS ORDERED: LIDOCAINE 5% PATCH TOPICAL STA (11:21)
[2018-03-02] MEDS ORDERED: HYDROmorphone 1 MG/ML 1 ML SYRINGE IVP STA (11:22)
[2018-03-02 12:14] VITALS: BP 123/78; PULSE 73; RESP 18
== END 2018-03-02 12:12 | disposition home or self-care (01) ==
LOC: EC 08:53
DX: M94.0 Chondrocostal junction syndrome [Tietze] (principal); R42 Dizziness and giddiness; R22.2 Localized swelling, mass and lump, trunk; J44.9 Chronic obstructive pulmonary disease, unspecified; M79.7 Fibromyalgia; M19.90 Unspecified osteoarthritis, unspecified site; F17.200 Nicotine dependence, unspecified, uncomplicated; Z79.899 Other long term (current) drug therapy; Z91.040 Latex allergy status; Z91.041 Radiographic dye allergy status; Z88.5 Allergy status to narcotic agent; Z88.8 Allergy status to other drugs, medicaments and biological substances; Z91.048 Other nonmedicinal substance allergy status
CPT/HCPCS: 36415; 93005; 80048; 84484; 85025; 80306; 71250; 99285; 96374; 96375; J2060; J1170

== ENCOUNTER 2018-05-15 01:33 | Emergency (ER) | payer OTHER ==
[2018-05-15 01:36] VITALS: TEMP 97.8
[2018-05-15 02:38] LABS: Basophils # (A) 0.1 k/uL (0-0.2); Basophils % (A) 0 %; Eosinophils # (A) 0.3 k/uL (0-0.7); Eosinophils % (A) 2 %; HCT 48.2 % (34.0-46.0); HGB 14.7 gm/dL (11.4-16.0); Lymphocytes # (A) 3.9 k/uL (1.0-4.8); Lymphocytes % (A) 25 %; MCH 28.5 pg (25.0-35.0); MCHC 30.5 g/dL (31.0-37.0); MCV 93.4 fL (80.0-100.0); Mean Platelet Volume 6.4; Monocytes % (A) 6 %; Neutrophils # (A) 9.8 k/uL (1.3-7.7); Neutrophils % (A) 64 %; Platelet Count 466 k/uL (150-450); RBC 5.17 m/uL (3.80-5.40); WBC 15.3 k/uL (3.8-10.6)
[2018-05-15 02:47] LABS: ALT 9 U/L (9-52); AST 14 U/L (14-36); Albumin 4.4 g/dL (3.5-5.0); Alkaline Phosphatase 74 U/L (38-126); Anion Gap 11 mmol/L; Blood Urea Nitrogen 15 mg/dL (7-17); Calcium 9.9 mg/dL (8.4-10.2); Carbon Dioxide 23 mmol/L (22-30); Chloride 106 mmol/L (98-107); Glucose 103 mg/dL (74-99); Potassium 4.4 mmol/L (3.5-5.1); Sodium 140 mmol/L (137-145); Total Bilirubin 0.4 mg/dL (0.2-1.3); Total Protein 7.5 g/dL (6.3-8.2)
--- NOTE | 2018-05-15 02:48 | XR ---
EXAMINATION TYPE: XR chest 2V DATE OF EXAM: 05/15/2018 COMPARISON: 03/01/2018 HISTORY: Chest pain TECHNIQUE: Frontal and lateral views of the chest are obtained. FINDINGS: Heart and mediastinum are normal. Lungs are clear. There is no pleural effusion. There is slight blunting of right costophrenic angle. There are no hilar masses. There are chest leads. Bony t horax is intact. IMPRESSION: Mild pleural scarring at the lateral right lung base unchanged. Normal heart.
[2018-05-15 02:59] LABS: INR 0.9 (<1.2); Partial Thromboplastin Time 23.8 sec (22.0-30.0); Prothrombin Time 9.7 sec (9.0-12.0)
[2018-05-15 03:01] LABS: Creatine Kinase 65 U/L (30-135)
[2018-05-15 03:15] LABS: Creatine Kinase MB 0.3 ng/mL (0.0-2.4); Troponin I <0.012 ng/mL (0.000-0.034)
[2018-05-15] MEDS ORDERED: MAG HYDROX/AL HYDROX/SIMETH 30 ML, HYOSCYAMINE ELIXIR 10 ML, CIMETIDINE HCL 300 MG, LID... PO STA ×4 (03:34)
--- NOTE | 2018-05-15 03:37 | ED ---
Chest Pain HPI - General Chief Complaint: Chest Pain Stated Complaint: Chest Pain Time Seen by Provider: 05/15/18 03:21 Source: patient Mode of arrival: ambulatory Limitations: no limitations - History of Present Illness MD Complaint: chest pain Onset/Timin -: hour(s) Onset: during rest Pain Location: substernal Pain Radiation: none Severity: moderate Quality: other (burning) Consistency: constant Improves With: nothing Worsens With: nothing Anginal Symptoms: nausea Treatments Prior to Arrival: none - Related Data Home Medications Medication Instructions Recorded Confirmed HYDROcodone/APAP 10-325MG [[place] 1 tab PO QID PRN 02/16/14 03/02/18 10-325] diphenhydrAMINE [Benadryl] 50 mg PO HS 04/07/15 03/02/18 Levalbuterol Hfa Inhaler [Xopenex 2 puff INHALATION RT-BID PRN 12/25/15 03/02/18 Hfa Inhaler] ALPRAZolam [Xanax] 2 mg PO BID PRN 02/29/16 03/02/18 Ibuprofen [Motrin] 800 mg PO TID PRN 08/26/16 03/02/18 Allergies Allergy/AdvReac Type Severity Reaction Status Date / Time adhesive Allergy Unknown Rash/Hives Verified 05/15/18 01:36 Iodinated Contrast- Oral and Allergy Rash/Hives Verified 05/15/18 01:36 IV Dye [Iodinated Contrast Media - IV Dye] latex Allergy Rash/Hives Verified 05/15/18 01:36 morphine Allergy Rash/Hives Verified 05/15/18 01:36 albuterol AdvReac Rapid Verified 05/15/18 01:36 Heart Rate Review of Systems ROS Statement: Those systems with pertinent positive or pertinent negative responses have been documented in the HPI. ROS Other: All systems not noted in ROS Statement are negative. Constitutional: Denies: fever, chills Respiratory: Reports: cough. Denies: dyspnea, wheezes, hemoptysis Cardiovascular: Reports: as per HPI, chest pain. Denies: palpitations, orthopnea, edema, syncope Gastrointestinal: Reports: nausea. Denies: abdominal pain, vomiting, diarrhea Genitourinary: Denies: dysuria, hematuria Musculoskeletal: Denies: back pain Skin: Denies: rash Neurological: Denies: headache, weakness, numbness EKG Findings - EKG Results: EKG: interpreted by ANJUM TABARES, sinus rhythm (Rate 87 bpm), normal axis, normal QRS, normal ST/T, no acute changes - TN, Pacemaker, Normal: Normal tracing: normal tracing Past Medical History Past Medical History: COPD, Fibromyalgia, Osteoarthritis (OA), Pneumonia Additional Past Medical History / Comment(s): BACK PAIN, HEART PALPITATIONS, INSOMNIA, PULMONARY HTN. PT STATES ABSENCE OF RT LUNG PULMONARY ARTERY. History of Any Multi-Drug Resistant Organisms: None Reported Past Surgical History: Section, Cholecystectomy, Hysterectomy, Orthopedic Surgery Additional Past Surgical History / Comment(s): LIA CATARACTS, NECK SURG, right knee surgery Past Anesthesia/Blood Transfusion Reactions: No Reported Reaction, Motion Sickness Past Psychological History: Anxiety, Panic Disorder, PTSD Smoking Status: Current every day smoker Past Alcohol Use History: None Reported Past Drug Use History: None Reported - Past Family History Mother Family Medical History: Thyroid Disorder Father Family Medical History: Congestive Heart Failure (CHF) Additional Family Medical History / Comment(s): crohns Brother(s) Family Medical History: Diabetes Mellitus Daughter(s) Additional Family Medical History / Comment(s): hole in heart repaired Son(s) Additional Family Medical History / Comment(s): from aortic dissection General Exam Limitations: no limitations General appearance: alert, in no apparent distress Head exam: Present: atraumatic, normocephalic Eye exam: Present: normal appearance. Absent: scleral icterus, conjunctival injection Respiratory exam: Present: normal lung sounds bilaterally, chest wall tenderness. Absent: respiratory distress, wheezes, rales, rhonchi, stridor, accessory muscle use, decreased breath sounds, prolonged expiratory Cardiovascular Exam: Present: regular rate, normal rhythm, normal heart sounds. Absent: systolic murmur, diastolic murmur, rubs, gallop GI/Abdominal exam: Present: soft. Absent: distended, tenderness, guarding, rebound, rigid, mass Extremities exam: Present: normal inspection, normal capillary refill. Absent: pedal edema, calf tenderness Back exam: Present: normal inspection. Absent: CVA tenderness (R), CVA tenderness (L) Neurological exam: Present: alert Skin exam: Present: warm, dry, intact, normal color. Absent: rash Course Vital Signs 05/15/18 05/15/1818 01:34 02:30 03:30 Temperature 97.8 F Pulse Rate 101 H 90 Respiratory 16 45 H Rate Blood Pressure 121/72 118/71 104/67 O2 Sat by Pulse 100 96 Oximetry Chest Pain MDM - MDM This 47-year-old woman with atypical chest pain. There is also a component of chest wall discomfort. The patient does have risk factors for heart disease including family history and smoking. I did discuss admission for telemetry monitoring and cardiology consultation with cold having stress test, but the patient is declining. She is feeling better and would like to go home. She does understand there is some risk of missing cardiac disease. She does agree to return should the symptoms recur or if there is any new symptom. Disposition Clinical Impression: Chest pain Disposition: ADMITTED IP TO THIS HOSP Condition: Fair Instructions: Chest Pain (ED) Is patient prescribed a controlled substance at d/c from ED?: No Referrals: Beto Hernandez MD [Primary Care Provider] - 1-2 days Peyton Kwon MD [STAFF PHYSICIAN] - 1-2 days
[2018-05-15] MEDS ORDERED: HYDROcodone/APAP 5-325MG 1 EACH TAB PO STA (04:26)
[2018-05-15 04:41] VITALS: BP 109/69; PULSE 86; RESP 18
== END 2018-05-15 04:48 | disposition home or self-care (01) ==
LOC: EC 01:33
DX: R07.2 Precordial pain (principal); R11.0 Nausea; J44.9 Chronic obstructive pulmonary disease, unspecified; F17.200 Nicotine dependence, unspecified, uncomplicated; Z82.49 Family history of ischemic heart disease and other diseases of the circulatory system; Z79.899 Other long term (current) drug therapy; Z91.048 Other nonmedicinal substance allergy status; Z91.041 Radiographic dye allergy status; Z91.040 Latex allergy status; Z88.5 Allergy status to narcotic agent; Z88.8 Allergy status to other drugs, medicaments and biological substances; Z53.29 Procedure and treatment not carried out because of patient's decision for other reasons
CPT/HCPCS: 36415; 71046; 80053; 82550; 82553; 83735; 84484; 85025; 85610; 85730; 93005; 99285

== ENCOUNTER → 2018-08-11 | Outpatient (CLI) | payer OTHER ==
[2018-08-11 19:13] LABS: Rheumatoid Factor 8 IU/mL (0-15)
[2018-08-11 20:48] LABS: Anti-DNA, DS unit <1.0 IU/mL; Cyclic Citrullinated Pep IgG NEGATIVE (NEGATIVE); DNA Double-Stranded NEGATIVE (NEGATIVE); RNP <0.2 AI; Scleroderma SC-70 Ab <0.2 AI
== END ==
LOC: LABWHC1 13:58
PROVIDERS: ATTEND Psychiatry & Neurology Pain Medicine
DX: M25.50 Pain in unspecified joint (principal); R90.82 White matter disease, unspecified; R42 Dizziness and giddiness
CPT/HCPCS: 36415; 83516; 85652; 86038; 86140; 86200; 86225; 86235; 86431

== ENCOUNTER → 2018-08-25 | Outpatient (CLI) | payer OTHER | LOC: LABWHC1 09:37 | PROVIDERS: ATTEND Psychiatry & Neurology Pain Medicine | DX: R90.89 Other abnormal findings on diagnostic imaging of central nervous system (principal); R42 Dizziness and giddiness | CPT/HCPCS: 88108 ==

== ENCOUNTER 2018-09-10 13:59 | Emergency (ER) | payer OTHER ==
[2018-09-10 14:07] VITALS: TEMP 97.8
[2018-09-10] MEDS ORDERED: SODIUM CHLORIDE 0.9% 1,000 ML IV STA (14:54)
[2018-09-10] MEDS ORDERED: ASPIRIN 81 MG PO STA (14:54)
[2018-09-10] MEDS ORDERED: LORazepam 2 MG/ML INJ IV STA ×2 (14:55→16:07)
--- NOTE | 2018-09-10 14:57 | ED ---
General Adult HPI - General Chief complaint: Chest Pain Stated complaint: chest pain/shaky-sent by Time Seen by Provider: 09/10/18 14:26 Source: patient, family, RN notes reviewed Mode of arrival: wheelchair Limitations: no limitations - History of Present Illness Initial comments: Patient is a pleasant 47-year-old female presenting to the emergency department worried about anxiety. Patient believes she is in a full-blown panic attack. Symptoms started this morning and have progressively worsened since that time. Patient feels shaky all over. Patient has chest discomfort and dyspnea. Patient states been in the hospital makes her symptoms worse. Patient states there is a history of posterior neck stress disorder and has had similar symp toms previously. Patient states discomfort is also involving the entire left arm. Patient is tearful during questioning. - Related Data Home Medications Medication Instructions Recorded Confirmed HYDROcodone/APAP 10-325MG [[place] 1 tab PO QID PRN 02/16/14 09/10/18 10-325] Levalbuterol Hfa Inhaler [Xopenex 2 puff INHALATION RT-BID PRN 12/25/15 09/10/18 Hfa Inhaler] [id number] [id number] 1 tab PO Q6HR PRN 09/10/18 09/10/18 [Excedrin] Levalbuterol Nebulized [Xopenex 1.25 mg INHALATION RT-TID PRN 09/10/18 09/10/18 Nebulized] Allergies Allergy/AdvReac Type Severity Reaction Status Date / Time adhesive Allergy Unknown Rash/Hives Verified 09/10/18 15:19 Iodinated Contrast- Oral and Allergy Rash/Hives Verified 09/10/18 15:19 IV Dye [Iodinated Contrast Media - IV Dye] latex Allergy Rash/Hives Verified 09/10/18 15:19 morphine Allergy Rash/Hives Verified 09/10/18 15:19 albuterol AdvReac Rapid Verified 09/10/18 15:19 Heart Rate Review of Systems ROS Statement: Those systems with pertinent positive or pertinent negative responses have been documented in the HPI. ROS Other: All systems not noted in ROS Statement are negative. Constitutional: Denies: fever Eyes: Denies: eye pain ENT: Denies: ear pain Respiratory: Reports: dyspnea. Denies: cough Cardiovascular: Reports: chest pain Endocrine: Denies: fatigue Gastrointestinal: Denies: abdominal pain Genitourinary: Denies: dysuria Musculoskeletal: Denies: back pain Skin: Denies: rash Neurological: Denies: weakness Psychiatric: Reports: anxiety Past Medical History Past Medical History: COPD, Fibromyalgia, Osteoarthritis (OA), Pneumonia Additional Past Medical History / Comment(s): BACK PAIN, HEART PALPITATIONS, INSOMNIA, PULMONARY HTN. PT STATES ABSENCE OF RT LUNG PULMONARY ARTERY. History of Any Multi-Drug Resistant Organisms: None Reported Past Surgical History: Section, Cholecystectomy, Hysterectomy, Orthopedic Surgery Additional Past Surgical History / Comment(s): LIA CATARACTS, NECK SURG, right knee surgery Past Anesthesia/Blood Transfusion Reactions: No Reported Reaction, Motion Sickness Past Psychological History: Anxiety, Panic Disorder, PTSD Smoking Status: Current every day smoker Past Alcohol Use History: Occasional Past Drug Use History: None Reported - Past Family History Mother Family Medical History: Thyroid Disorder Father Family Medical History: Congestive Heart Failure (CHF) Additional Family Medical History / Comment(s): crohns Brother(s) Family Medical History: Diabetes Mellitus Daughter(s) Additional Family Medical History / Comment(s): hole in heart repaired Son(s) Additional Family Medical History / Comment(s): from aortic dissection General Exam Limitations: no limitations General appearance: alert, anxious Head exam: Present: normocephalic Eye exam: Present: normal appearance, PERRL ENT exam: Present: normal oropharynx Neck exam: Present: normal inspection Respiratory exam: Present: normal lung sounds bilaterally, chest wall tenderness Cardiovascular Exam: Present: regular rate, normal rhythm Expanded Peripheral pulses: 2+: Radial (R), Radial (L), Posterior Tibialis (R), Posterior Tibialis (L), Dorsalis Pedis (R), Dorsalis Pedis (L) GI/Abdominal exam: Present: soft. Absent: distended, tenderness, pulsatile mass Extremities exam: Present: normal inspection. Absent: pedal edema, calf tenderness Neurological exam: Present: alert Psychiatric exam: Present: anxious Skin exam: Present: normal color Course Vital Signs 09/10/18 14:03 Temperature 97.8 F Pulse Rate 95 Respiratory 18 Rate Blood Pressure 132/79 O2 Sat by Pulse 99 Oximetry - Reevaluation(s) Reevaluation #1: 09/10/18 15:53 Prior labs reviewed showing patient does have a chronic leukocytosis. EKG Findings - EKG Comments: EKG Findings:: Normal sinus rhythm and 90. ME 136. QRS 76. QT 360. QTC 440. Normal axis. Normal QRS. No acute ST change. Medical Decision Making - Medical Decision Making Patient reevaluated and resting comfortably in bed. Patient states no significant change in symptoms. Patient and family updated on results and recommendation for admission. Patient is made aware of limitations of tests and emergency department. Patient is made aware that heart attack has not been ruled out. Patient is made aware that risk for heart attack in the near future has not been ruled out. Patient is advised admission for repeat testing and monitoring and observation as well as cardiac evaluation. Despite this patient refuses. Patient does them straight medical decision making and is agreeable to follow-up with her primary care physician. Patient will leave AGAINST MEDICAL ADVICE. - Lab Data Result diagrams: 09/10/18 15:00 09/10/18 15:00 Lab Results 09/10/18 09/10/18 09/10/18 Range/Units 15:00 15:00 15:00 WBC 19.3 H (3.8-10.6) k/uL RBC 5.12 (3.80-5.40) m/uL Hgb 15.1 (11.4-16.0) gm/dL Hct 46.7 H (34.0-46.0) % MCV 91.1 (80.0-100.0) fL MCH 29.5 (25.0-35.0) pg MCHC 32.4 (31.0-37.0) g/dL RDW 14.1 (11.5-15.5) % Plt Count 559 H (150-450) k/uL Neutrophils % 72 % Lymphocytes % 19 % Monocytes % 7 % Eosinophils % 0 % Basophils % 0 % Neutrophils # 14.0 H (1.3-7.7) k/uL Lymphocytes # 3.7 (1.0-4.8) k/uL Monocytes # 1.3 H (0-1.0) k/uL Eosinophils # 0.0 (0-0.7) k/uL Basophils # 0.0 (0-0.2) k/uL PT 9.7 (9.0-12.0) sec INR 0.9 (<1.2) APTT 22.6 (22.0-30.0) sec D-Dimer 0.19 (<0.60) mg/L FEU Sodium 141 (137-145) mmol/L Potassium 4.7 (3.5-5.1) mmol/L Chloride 112 H (98-107) mmol/L Carbon Dioxide 21 L (22-30) mmol/L Anion Gap 8 mmol/L BUN 16 (7-17) mg/dL Creatinine 0.76 (0.52-1.04) mg/dL Est GFR (CKD-EPI)AfAm >90 (>60 ml/min/1.73 sqM) Est GFR (CKD-EPI)NonAf >90 (>60 ml/min/1.73 sqM) Glucose 98 (74-99) mg/dL Calcium 10.2 (8.4-10.2) mg/dL Magnesium 2.1 (1.6-2.3) mg/dL Total Bilirubin 0.6 (0.2-1.3) mg/dL AST 18 (14-36) U/L ALT 14 (9-52) U/L Alkaline Phosphatase 66 (38-126) U/L Troponin I (0.000-0.034) ng/mL Total Protein 7.8 (6.3-8.2) g/dL Albumin 4.7 (3.5-5.0) g/dL 09/10/18 Range/Units 15:00 WBC (3.8-10.6) k/uL RBC (3.80-5.40) m/uL Hgb (11.4-16.0) gm/dL Hct (34.0-46.0) % MCV (80.0-100.0) fL MCH (25.0-35.0) pg MCHC (31.0-37.0) g/dL RDW (11.5-15.5) % Plt Count (150-450) k/uL Neutrophils % % Lymphocytes % % Monocytes % % Eosinophils % % Basophils % % Neutrophils # (1.3-7.7) k/uL Lymphocytes # (1.0-4.8) k/uL Monocytes # (0-1.0) k/uL Eosinophils # (0-0.7) k/uL Basophils # (0-0.2) k/uL PT (9.0-12.0) sec INR (<1.2) APTT (22.0-30.0) sec D-Dimer (<0.60) mg/L FEU Sodium (137-145) mmol/L Potassium (3.5-5.1) mmol/L Chloride (98-107) mmol/L Carbon Dioxide (22-30) mmol/L Anion Gap mmol/L BUN (7-17) mg/dL Creatinine (0.52-1.04) mg/dL Est GFR (CKD-EPI)AfAm (>60 ml/min/1.73 sqM) Est GFR (CKD-EPI)NonAf (>60 ml/min/1.73 sqM) Glucose (74-99) mg/dL Calcium (8.4-10.2) mg/dL Magnesium (1.6-2.3) mg/dL Total Bilirubin (0.2-1.3) mg/dL AST (14-36) U/L ALT (9-52) U/L Alkaline Phosphatase (38-126) U/L Troponin I <0.012 (0.000-0.034) ng/mL Total Protein (6.3-8.2) g/dL Albumin (3.5-5.0) g/dL - Radiology Data Radiology results: image reviewed (X-ray reveals no acute process.) Disposition Clinical Impression: Chest pain, Anxiety Disposition: HOME SELF-CARE Condition: Stable Instructions (If sedation given, give patient instructions): Chest Pain (ED), Anxiety (ED) Additional Instructions: Please follow-up with primary care physician tomorrow. Return for increased discomfort, difficulty breathing, worsening or changing symptoms or any other concerns including desire for further evaluation. Aspirin daily until follow-up and advised otherwise. Is patient prescribed a controlled substance at d/c from ED?: No Referrals: Beto Hernandez MD [Primary Care Provider] - 1-2 days Doe Abraham DO [Medical Doctor] - 1-2 days Time of Disposition: 16:09
[2018-09-10 15:18] LABS: Basophils % (A) 0 %; Eosinophils % (A) 0 %; HCT 46.7 % (34.0-46.0); HGB 15.1 gm/dL (11.4-16.0); Lymphocytes # (A) 3.7 k/uL (1.0-4.8); Lymphocytes % (A) 19 %; MCH 29.5 pg (25.0-35.0); MCHC 32.4 g/dL (31.0-37.0); MCV 91.1 fL (80.0-100.0); Mean Platelet Volume 6.7; Monocytes # (A) 1.3 k/uL (0-1.0); Monocytes % (A) 7 %; Neutrophils % (A) 72 %; Platelet Count 559 k/uL (150-450); RBC 5.12 m/uL (3.80-5.40); RDW 14.1 % (11.5-15.5); WBC 19.3 k/uL (3.8-10.6)
[2018-09-10 15:26] LABS: ALT 14 U/L (9-52); AST 18 U/L (14-36); Albumin 4.7 g/dL (3.5-5.0); Alkaline Phosphatase 66 U/L (38-126); Anion Gap 8 mmol/L; Blood Urea Nitrogen 16 mg/dL (7-17); Calcium 10.2 mg/dL (8.4-10.2); Carbon Dioxide 21 mmol/L (22-30); Chloride 112 mmol/L (98-107); Glucose 98 mg/dL (74-99); Magnesium 2.1 mg/dL (1.6-2.3); Potassium 4.7 mmol/L (3.5-5.1); Sodium 141 mmol/L (137-145); Total Bilirubin 0.6 mg/dL (0.2-1.3); Total Protein 7.8 g/dL (6.3-8.2)
[2018-09-10 15:30] LABS: D-Dimer 0.19 mg/L FEU (<0.60); INR 0.9 (<1.2); Partial Thromboplastin Time 22.6 sec (22.0-30.0); Prothrombin Time 9.7 sec (9.0-12.0)
--- NOTE | 2018-09-10 15:43 | XR ---
EXAMINATION TYPE: XR chest 2V DATE OF EXAM: 09/10/2018 COMPARISON: 05/15/2018 HISTORY: 47-year-old female with chest pain TECHNIQUE: PA and lateral views FINDINGS: Heart normal size. Aorta and pulmonary vasculature within normal. Mild diffuse interstitial prominenc e. Nipple shadow at the left base. Mild biapical pleural-parenchymal scarring. ACDF hardware. No cons olidation or pleural effusion. IMPRESSION: Chronic changes without acute cardiopulmonary process.
[2018-09-10 16:28] VITALS: BP 124/78; PULSE 110; RESP 20
--- NOTE | 2018-09-10 17:22 | P.CONS ---
History of Present Illness - History of Present Illness patient is a 47-year-old female came to emergency department with complains of panic attack and patient does have history of PTSD patient says she is depressed but not trying to hurt herself patient doesn't do well in a closed room and patient was comparing of chest pressure-like sensation pain radiating to the left arm moderate pain with the anxiety shaking along with the subjective shortness of breath. Patient has never seen a psychiatrist but does see a psychologist as an outpatient. EKG is within normal limits and the possibility of troponin is negative patient chest pain is noncardiac. It appears to be secondary to anxiety episode and acid with PTSD. Patient denied any fever chills cough patient does smoke has minimal wheeze. Patient's chest pain is nonpleuritic not associated with food. Review of Systems REVIEW OF SYSTEMS: CONSTITUTIONAL: No fever, no malaise, no fatigue. HEENT: No recent visual problems or hearing problems. Denied any sore throat. CARDIOVASCULAR: No orthopnea, PND, no palpitations, no syncope. PULMONARY: no cough, no hemoptysis. GASTROINTESTINAL: No diarrhea, no nausea, no vomiting, no abdominal pain. NEUROLOGICAL: No headaches, no weakness, no numbness. HEMATOLOGICAL: Denies any bleeding or petechiae. GENITOURINARY: Denies any burning micturition, frequency, or urgency. MUSCULOSKELETAL/RHEUMATOLOGICAL: Denies any joint pain, swelling, or any muscle pain. ENDOCRINE: Denies any polyuria or polydipsia. The rest of the 14-point review of systems is negative. Past Medical History Past Medical History: COPD, Fibromyalgia, Osteoarthritis (OA), Pneumonia Additional Past Medical History / Comment(s): BACK PAIN, HEART PALPITATIONS, INSOMNIA, PULMONARY HTN. PT STATES ABSENCE OF RT LUNG PULMONARY ARTERY. History of Any Multi-Drug Resistant Organisms: None Reported Past Surgical History: Section, Cholecystectomy, Hysterectomy, Orthopedic Surgery Additional Past Surgical History / Comment(s): LIA CATARACTS, NECK SURG, right knee surgery Past Anesthesia/Blood Transfusion Reactions: No Reported Reaction, Motion Sickness Past Psychological History: Anxiety, Panic Disorder, PTSD Smoking Status: Current every day smoker Past Alcohol Use History: Occasional Past Drug Use History: None Reported - Past Family History Mother Family Medical History: Thyroid Disorder Father Family Medical History: Congestive Heart Failure (CHF) Additional Family Medical History / Comment(s): crohns Brother(s) Family Medical History: Diabetes Mellitus Daughter(s) Additional Family Medical History / Comment(s): hole in heart repaired Son(s) Additional Family Medical History / Comment(s): from aortic dissection Medications and Allergies Home Medications Medication Instructions Recorded Confirmed Type HYDROcodone/APAP 10-325MG [[place] 1 tab PO QID PRN 02/16/14 09/10/18 History 10-325] Levalbuterol Hfa Inhaler [Xopenex 2 puff INHALATION RT-BID PRN 12/25/15 09/10/18 History Hfa Inhaler] [id number]-[id number]-[id number] [id number] 1 tab PO Q6HR PRN 09/10/18 09/10/18 History [Excedrin] Levalbuterol Nebulized [Xopenex 1.25 mg INHALATION RT-TID PRN 09/10/18 09/10/18 History Nebulized] Allergies Allergy/AdvReac Type Severity Reaction Status Date / Time adhesive Allergy Unknown Rash/Hives Verified 09/10/18 15:19 Iodinated Contrast- Oral and Allergy Rash/Hives Verified 09/10/18 15:19 IV Dye [Iodinated Contrast Media - IV Dye] latex Allergy Rash/Hives Verified 09/10/18 15:19 morphine Allergy Rash/Hives Verified 09/10/18 15:19 albuterol AdvReac Rapid Verified 09/10/18 15:19 Heart Rate Physical Exam Vitals: Vital Signs Temp Pulse Resp BP Pulse Ox 09/10/18 16:24 110 H 20 124/78 99 09/10/18 14:03 97.8 F 95 18 132/79 99 Intake and Output 09/10/18 09/10/18 09/10/18 06:59 14:59 22:59 Other: Weight 66.678 kg PHYSICAL EXAMINATION: GENERAL: The patient is alert and oriented x3, not in any acute distress. Well developed, well nourished. HEENT: Pupils are round and equally reacting to light. EOMI. No scleral icterus. No conjunctival pallor. Normocephalic, atraumatic. No pharyngeal erythema. No thyromegaly. CARDIOVASCULAR: S1 and S2 present. No murmurs, rubs, or gallops. PULMONARY: Chest is clear to auscultation, no crackles. is very minimal wheeze was appreciated in the right lower lung batrh ABDOMEN: Soft, nontender, nondistended, normoactive bowel sounds. No palpable organomegaly. MUSCULOSKELETAL: No joint swelling or deformity. EXTREMITIES: No cyanosis, clubbing, or pedal edema. NEUROLOGICAL: Gross neurological examination did not reveal any focal deficits. SKIN: No rashes. Results CBC & Chem 7: 09/10/18 15:00 09/10/18 15:00 Labs: Abnormal Lab Results - Last 24 Hours (Table) 09/10/18 09/10/18 Range/Units 15:00 15:00 WBC 19.3 H (3.8-10.6) k/uL Hct 46.7 H (34.0-46.0) % Plt Count 559 H (150-450) k/uL Neutrophils # 14.0 H (1.3-7.7) k/uL Monocytes # 1.3 H (0-1.0) k/uL Chloride 112 H (98-107) mmol/L Carbon Dioxide 21 L (22-30) mmol/L Assessment and Plan Plan: -chest pain: Atypical secondary to anxiety patient will benefit from treatment of anxiety with antianxiety medications and antidepressants. Patient's troponin is negative patient probably is appropriate for admission to observation to rule out acute medicine syndromes and unstable angina but patient is not willing to stay. Patient doesn't have any suicidal ideations if patient is willing to stay in the hospital will admit for overnight observation with psychiatric and cardiology consultations. -possibility of COPD without any significant acute exacerbation of fibromyalgia -PTSD with significant anxiety disorder and depression. -Nicotine use: Counseling was provided will admit the patient if patient is willing to stay in the hospital overnight to rule out a Acute coronary syndromes.
== END 2018-09-10 16:55 | disposition home or self-care (01) ==
LOC: EC 13:59
DX: R07.89 Other chest pain (principal); F41.9 Anxiety disorder, unspecified; R06.00 Dyspnea, unspecified; R25.9 Unspecified abnormal involuntary movements; J44.9 Chronic obstructive pulmonary disease, unspecified; M79.7 Fibromyalgia; M19.90 Unspecified osteoarthritis, unspecified site; F17.200 Nicotine dependence, unspecified, uncomplicated; Z87.01 Personal history of pneumonia (recurrent); Z82.49 Family history of ischemic heart disease and other diseases of the circulatory system; Z53.29 Procedure and treatment not carried out because of patient's decision for other reasons; Z79.891 Long term (current) use of opiate analgesic; Z79.899 Other long term (current) drug therapy; Z91.048 Other nonmedicinal substance allergy status; Z91.041 Radiographic dye allergy status; Z91.040 Latex allergy status; Z88.5 Allergy status to narcotic agent; Z88.8 Allergy status to other drugs, medicaments and biological substances
CPT/HCPCS: 36415; 93005; 85379; 80053; 83735; 84484; 85025; 85610; 85730; 71046; 99285; 96374; 96376; 96361 ×2; J2060

== ENCOUNTER 2019-02-28 14:42 | Emergency (ER) | payer OTHER ==
[2019-02-28 14:54] VITALS: RESP 18
[2019-02-28] MEDS ORDERED: NITROGLYCERIN SL TABS 0.4 MG TAB SUBLINGUAL STA (15:17)
--- NOTE | 2019-02-28 15:22 | ED ---
Chest Pain HPI - General Chief Complaint: Chest Pain Stated Complaint: Chest pain Time Seen by Provider: 02/28/19 14:55 Source: police Mode of arrival: wheelchair Limitations: no limitations - History of Present Illness Initial Comments: Patient is a 48-year-old female presenting to the emergency department with a chief complaint of chest pain. Patient reports she was sent to the ED from medics expressed. Patient reports a gradual onset of sharp left-sided chest pain that radiates along the left side of her arm. Patient also reports tingling sensation in the left arm but no numbness. Patient also reports some tingling sensation in her chin. Patient denies any tingling in any other extremities. Patient reports she feels "hot". Patient denies any nausea or vomiting or headaches. Patient does feel lightheadedness but no dizziness. Patient denies any visual disturbances. Patient reports she does not have hypertension but does have hypercholesterolemia that is not treated. Patient does have a family history of cardiac disease. Patient is a smoker. Patient does have history of heart palpitations. Patient denies history of DVT, un ilateral leg swelling, calf pain, estrogen use, prolonged periods of activity, recent cancer treatment, recent prolonged periods of inactivity. - Related Data Home Medications Medication Instructions Recorded Confirmed HYDROcodone/APAP 10-325MG [[place] 1 tab PO QID PRN 02/16/14 02/28/19 10-325] Levalbuterol Hfa Inhaler [Xopenex 2 puff INHALATION RT-BID PRN 12/25/15 02/28/19 Hfa Inhaler] Levalbuterol Nebulized [Xopenex 1.25 mg INHALATION RT-TID PRN 09/10/18 02/28/19 Nebulized] Ibuprofen [Motrin] 800 mg PO Q6H PRN 02/28/19 02/28/19 diphenhydrAMINE [Benadryl] 50 mg PO HS PRN 02/28/19 02/28/19 Allergies Allergy/AdvReac Type Severity Reaction Status Date / Time adhesive Allergy Unknown Rash/Hives Verified 02/28/19 15:06 Iodinated Contrast Media Allergy Rash/Hives Verified 02/28/19 15:06 [Iodinated Contrast Media - IV Dye] latex Allergy Rash/Hives Verified 02/28/19 15:06 morphine Allergy Rash/Hives Verified 02/28/19 15:06 albuterol AdvReac Rapid Verified 02/28/19 15:06 Heart Rate Review of Systems ROS Statement: Those systems with pertinent positive or pertinent negative responses have been documented in the HPI. ROS Other: All systems not noted in ROS Statement are negative. EKG Findings - EKG Comments: EKG Findings:: Normal sinus rhythm, no ST changes. Ventricular rate 94, IA interval 132, QRS duration 80, QT/QTc 360/450. Past Medical History Past Medical History: COPD, Fibromyalgia, Osteoarthritis (OA), Pneumonia Additional Past Medical History / Comment(s): BACK PAIN, HEART PALPITATIONS, INSOMNIA, PULMONARY HTN. PT STATES ABSENCE OF RT LUNG PULMONARY ARTERY. History of Any Multi-Drug Resistant Organisms: None Reported Past Surgical History: Section, Cholecystectomy, Hysterectomy, Orthopedic Surgery Additional Past Surgical History / Comment(s): LIA CATARACTS, NECK SURG, right knee surgery Past Anesthesia/Blood Transfusion Reactions: No Reported Reaction, Motion Sickness Past Psychological History: Anxiety, Panic Disorder, PTSD Smoking Status: Current every day smoker Past Alcohol Use History: Occasional Past Drug Use History: None Reported - Past Family History Mother Family Medical History: Thyroid Disorder Father Family Medical History: Congestive Heart Failure (CHF) Additional Family Medical History / Comment(s): crohns Brother(s) Family Medical History: Diabetes Mellitus Daughter(s) Additional Family Medical History / Comment(s): hole in heart repaired Son(s) Additional Family Medical History / Comment(s): from aortic dissection General Exam Limitations: no limitations General appearance: alert, in no apparent distress Head exam: Present: atraumatic, normocephalic, normal inspection Eye exam: Present: normal appearance Pupils: Present: normal accommodation ENT exam: Present: normal exam, mucous membranes moist, normal external ear exam Neck exam: Present: normal inspection, full ROM Respiratory exam: Present: normal lung sounds bilaterally, chest wall tenderness (Left-sided chest wall tenderness reproducible with palpation). Absent: wheezes Cardiovascular Exam: Present: regular rate, normal rhythm, normal heart sounds Extremities exam: Present: normal inspection, full ROM Back exam: Present: normal inspection, full ROM Neurological exam: Present: alert, oriented X3 Psychiatric exam: Present: normal affect, normal mood Skin exam: Present: warm, intact, normal color Course Vital Signs 02/28/19 02/28/19 02/28/19 14:49 15:56 17:06 Temperature 97.7 F Pulse Rate 92 91 64 Respiratory 18 18 18 Rate Blood Pressure 112/72 112/58 112/77 O2 Sat by Pulse 99 98 99 Oximetry 02/28/19 17:50 Temperature 98.1 F Pulse Rate 70 Respiratory 18 Rate Blood Pressure 112/78 O2 Sat by Pulse 98 Oximetry Chest Pain MDM - Differential Diagnosis ACS - MDM Patient is a 48-year-old female presenting to emergency Department with a chief complaint of chest pain. Patient had a gradual onset of left-sided chest pain that is exacerbated with palpation. Patient denies any episodes of diaphoresis, nausea or vomiting. Patient is an 11 and his dizziness or blurry vision. No shortness of breath. EKG is indicative of normal sinus rhythm. Initial troponins are negative. CBC is indicative of a mild leukocytosis. Physical examination does not indicate any abnormal lung sounds. Patient has a heart score of 4. Patient advised to be admitted for observation and serial troponin s. Patient refused to be admitted and states that she has PTSD and does not want to stay in the hospital. Patient will sign out AMA. Patient was given 325 of aspirin in the urgent care. Patient was given 0.4 Nitropaste in the ED. On reevaluation patient reports she feels the chest pain has resolved. Well's score of 0. Patient advised to follow with primary care and obtain a s3b multi sensor operator for evaluation. Patient advised to begin 81 mg aspirin tablets. Strict return parameters were thoroughly discussed with patient was understanding and agreeable. Case discussed physician. - Wells Criteria Clinical Symptoms of DVT: (0) No No Alternative Diagnosis: (0) No Immobilization of Surgery in Previous 4 Weeks: (0) No Previous DVT/PE: (0) No Hemoptysis: (0) No Malignancy: (0) No Disposition Clinical Impression: Chest pain Disposition: Left Against Medical Advice Condition: Stable Instructions (If sedation given, give patient instructions): Chest Pain (ED) Additional Instructions: Please take 81 mg aspirin daily. Please follow-up with primary care and obtain referral for cardiology. Please return to emergency department if symptoms worsen. Is patient prescribed a controlled substance at d/c from ED?: No Referrals: Beto Hernandez MD [Primary Care Provider] - 1-2 days Time of Disposition: 17:33
[2019-02-28 15:31] LABS: Basophils # (A) 0.2 k/uL (0-0.2); Basophils % (A) 1 %; Eosinophils # (A) 0.3 k/uL (0-0.7); Eosinophils % (A) 2 %; HGB 15.4 gm/dL (11.4-16.0); Lymphocytes # (A) 3.3 k/uL (1.0-4.8); Lymphocytes % (A) 25 %; MCH 27.8 pg (25.0-35.0); MCHC 30.3 g/dL (31.0-37.0); MCV 91.8 fL (80.0-100.0); Mean Platelet Volume 6.3; Monocytes # (A) 0.7 k/uL (0-1.0); Monocytes % (A) 5 %; Neutrophils # (A) 8.5 k/uL (1.3-7.7); Neutrophils % (A) 65 %; Platelet Count 419 k/uL (150-450); RBC 5.55 m/uL (3.80-5.40); RDW 14.4 % (11.5-15.5); WBC 13.1 k/uL (3.8-10.6)
[2019-02-28 15:39] LABS: ALT 14 U/L (9-52); AST 17 U/L (14-36); African American GFR (CKD) >90 (>60 ml/min/1.73 sqM); Albumin 4.4 g/dL (3.5-5.0); Alkaline Phosphatase 89 U/L (38-126); Anion Gap 8 mmol/L; Blood Urea Nitrogen 10 mg/dL (7-17); Calcium 9.9 mg/dL (8.4-10.2); Carbon Dioxide 28 mmol/L (22-30); Chloride 103 mmol/L (98-107); Glucose 105 mg/dL (74-99); Potassium 4.1 mmol/L (3.5-5.1); Sodium 139 mmol/L (137-145); Total Bilirubin 0.6 mg/dL (0.2-1.3); Total Protein 7.4 g/dL (6.3-8.2)
--- NOTE | 2019-02-28 16:05 | XR ---
EXAMINATION TYPE: XR chest 2V DATE OF EXAM: 02/28/2019 COMPARISON: Chest x-ray 09/10/2018 HISTORY: Chest pain TECHNIQUE: Frontal and lateral views of the chest are obtained. FINDINGS: There is no focal air space opacity, pleural effusion, or pneumothorax seen. Biapical pleu ral scarring noted. The cardiac silhouette size is within normal limits. Cervical spine fusion hardw are partially visualized. IMPRESSION: No acute cardiopulmonary process.
[2019-02-28] MEDS ORDERED: NITROGLYCERIN OINT 1 INCH/GM PACKET TOPICAL STA (16:08)
[2019-02-28 16:10] LABS: INR 0.9 (<1.2); Partial Thromboplastin Time 25.3 sec (22.0-30.0); Prothrombin Time 9.7 sec (9.0-12.0)
[2019-02-28 17:53] VITALS: BP 112/78; PULSE 70; TEMP 98.1
== END 2019-02-28 17:58 | disposition left against medical advice (07) ==
LOC: EC 14:42
DX: R07.89 Other chest pain (principal); D72.829 Elevated white blood cell count, unspecified; M79.602 Pain in left arm; R20.2 Paresthesia of skin; R42 Dizziness and giddiness; R20.8 Other disturbances of skin sensation; E78.00 Pure hypercholesterolemia, unspecified; J44.9 Chronic obstructive pulmonary disease, unspecified; M19.90 Unspecified osteoarthritis, unspecified site; F17.200 Nicotine dependence, unspecified, uncomplicated; Z88.5 Allergy status to narcotic agent; Z88.8 Allergy status to other drugs, medicaments and biological substances; Z91.040 Latex allergy status; Z91.041 Radiographic dye allergy status; Z91.048 Other nonmedicinal substance allergy status; Z79.1 Long term (current) use of non-steroidal anti-inflammatories (NSAID); Z79.899 Other long term (current) drug therapy; Z86.79 Personal history of other diseases of the circulatory system; Z82.49 Family history of ischemic heart disease and other diseases of the circulatory system; Z53.29 Procedure and treatment not carried out because of patient's decision for other reasons
CPT/HCPCS: 36415; 71046; 80053; 83735; 84484; 85025; 85610; 85730; 93005; 99285

== ENCOUNTER 2019-03-01 08:42 | Observation (INO) | payer OTHER ==
[2019-03-01] MEDS ORDERED: methylPREDNISolone SOD SUCCI 125 MG/2 ML VIAL IV STA (09:33)
[2019-03-01] MEDS ORDERED: HYDROmorphone 0.5 MG/0.5 ML SYRINGE IVP STA (09:33)
[2019-03-01] MEDS ORDERED: diphenhydrAMINE 50 MG/ML 1 ML VIAL IVP STA (09:33)
[2019-03-01] MEDS ORDERED: FAMOTIDINE 20 MG/2 ML VIAL IV STA (09:33)
[2019-03-01] MEDS ORDERED: NITROGLYCERIN OINT 1 INCH/GM PACKET TOPICAL STA (09:35)
[2019-03-01] MEDS ORDERED: RX INFO: IV CONTRAST WAS GIVEN 1 EACH MISC MISCELLANE PRN (09:35)
[2019-03-01 09:42] LABS: INR 0.9 (<1.2); Partial Thromboplastin Time 25.6 sec (22.0-30.0); Prothrombin Time 9.4 sec (9.0-12.0)
[2019-03-01 09:45] LABS: Calcium 9.2 mg/dL (8.4-10.2); Magnesium 1.9 mg/dL (1.6-2.3); Total Bilirubin 0.5 mg/dL (0.2-1.3); Total Protein 6.9 g/dL (6.3-8.2)
[2019-03-01 10:24] LABS: Basophils # (A) 0.1 k/uL (0-0.2); Basophils % (A) 1 %; Eosinophils # (A) 0.3 k/uL (0-0.7); Eosinophils % (A) 3 %; HCT 45.7 % (34.0-46.0); HGB 14.2 gm/dL (11.4-16.0); Lymphocytes # (A) 2.9 k/uL (1.0-4.8); Lymphocytes % (A) 27 %; MCH 28.7 pg (25.0-35.0); MCHC 31.1 g/dL (31.0-37.0); MCV 92.3 fL (80.0-100.0); Mean Platelet Volume 6.5; Monocytes # (A) 0.7 k/uL (0-1.0); Monocytes % (A) 7 %; Neutrophils # (A) 6.6 k/uL (1.3-7.7); Neutrophils % (A) 61 %; Platelet Count 410 k/uL (150-450); RBC 4.95 m/uL (3.80-5.40); RDW 14.6 % (11.5-15.5); WBC 10.7 k/uL (3.8-10.6)
--- NOTE | 2019-03-01 10:42 | ED ---
Chest Pain HPI - General Chief Complaint: Chest Pain Stated Complaint: chest pain Time Seen by Provider: 03/01/19 08:50 Source: patient Mode of arrival: ambulatory - History of Present Illness Initial Comments: The patient is a 8-year-old female presents emergency room with reported chest pain. Patient was seen in the emergency room yesterday for same pain. Reports that it is an going on for the past several days. Originally was intermittent in nature and now has become constant. She describes it as a cramping, pressure sensation located over the left side of her chest. States it radiates into her left arm and up to her jaw. Denies any weakness, numbness or tingling in her upper extremities. No ripping or tearing sensation to her back. She admits to associated shortness of breath and a pleuritic chest pain. She has been associated presyncopal sensation. Admits to nausea without vomiting. Denies vertiginous symptoms. No headaches or visual disturbances. Reports to a history of untreated high cholesterol. Patient is also a smoker. Has a history of COPD. Denies cough or hemoptysis. No family history of cardiac disease. Denies a history of DVT or PE. No recent travel or prolonged immobility. No calf pain or swelling. Denies a possibility . Reports that her son did at the age of 17 from a dissection. No reported fevers or chills. No recent upper respiratory infections. Denies any changes in her bowel or bladder habits. The patient was seen yesterday in the emergency department. It was requested patient be admitted to the hospital however she refused and left AMA. Patient returns today stating that she will be hospitalized if necessary. There are no other alleviating, precipitating or modifying factors - Related Data Home Medications Medication Instructions Recorded Confirmed HYDROcodone/APAP 10-325MG [[place] 1 tab PO QID PRN 02/16/14 03/01/19 10-325] Levalbuterol Hfa Inhaler [Xopenex 2 puff INHALATION RT-BID PRN 12/25/15 03/01/19 Hfa Inhaler] Levalbuterol Nebulized [Xopenex 1.25 mg INHALATION RT-TID PRN 09/10/18 03/01/19 Nebulized] Ibuprofen [Motrin] 800 mg PO Q6H PRN 02/28/19 03/01/19 diphenhydrAMINE [Benadryl] 50 mg PO HS PRN 02/28/19 03/01/19 Previous Rx's Medication Instructions Recorded Nicotine 21Mg/24Hr Patch [Habitrol] 1 patch TRANSDERM DAILY patch 03/02/19 Allergies Allergy/AdvReac Type Severity Reaction Status Date / Time adhesive Allergy Unknown Rash/Hives Verified 03/01/19 08:50 Iodinated Contrast Media Allergy Rash/Hives Verified 03/01/19 08:50 [Iodinated Contrast Media - IV Dye] latex Allergy Rash/Hives Verified 03/01/19 08:50 morphine Allergy Rash/Hives Verified 03/01/19 08:50 albuterol AdvReac Rapid Verified 03/01/19 08:50 Heart Rate Review of Systems ROS Statement: Those systems with pertinent positive or pertinent negative responses have been documented in the HPI. ROS Other: All systems not noted in ROS Statement are negative. EKG Findings - EKG Comments: EKG Findings:: EKG demonstrates a normal sinus rhythm with a ventricular rate of 82. NC interval 146. QRS 80. QTC 439. There are no acute ST segment elevations or depressions concerning for ischemic changes. No signs of Unhhv-Noycwoyth-Kvepv or Brugada syndrome Past Medical History Past Medical History: COPD, Fibromyalgia, Osteoarthritis (OA), Pneumonia Additional Past Medical History / Comment(s): BACK PAIN, HEART PALPITATIONS, INSOMNIA, PULMONARY HTN. PT STATES ABSENCE OF RT LUNG PULMONARY ARTERY. History of Any Multi-Drug Resistant Organisms: None Reported Past Surgical History: Section, Cholecystectomy, Hysterectomy, Orthopedic Surgery Additional Past Surgical History / Comment(s): LIA CATARACTS, NECK SURG, right knee surgery Past Anesthesia/Blood Transfusion Reactions: No Reported Reaction, Motion Sickness Past Psychological History: Anxiety, Panic Disorder, PTSD Smoking Status: Current every day smoker Past Alcohol Use History: Occasional Past Drug Use History: None Reported - Past Family History Mother Family Medical History: Thyroid Disorder Father Family Medical History: Congestive Heart Failure (CHF) Additional Family Medical History / Comment(s): crohns Brother(s) Family Medical History: Diabetes Mellitus Daughter(s) Additional Family Medical History / Comment(s): hole in heart repaired Son(s) Additional Family Medical History / Comment(s): from aortic dissection General Exam General appearance: alert, in no apparent distress Head exam: Present: atraumatic, normocephalic, normal inspection Eye exam: Present: normal appearance, PERRL, EOMI. Absent: scleral icterus, conjunctival injection, periorbital swelling ENT exam: Present: normal exam, mucous membranes moist Neck exam: Present: normal inspection. Absent: tenderness, meningismus, lymphadenopathy Respiratory exam: Present: normal lung sounds bilaterally. Absent: respiratory distress, wheezes, rales, rhonchi, stridor Cardiovascular Exam: Present: regular rate, normal rhythm, normal heart sounds. Absent: systolic murmur, diastolic murmur, rubs, gallop, clicks GI/Abdominal exam: Present: soft, normal bowel sounds. Absent: distended, tenderness, guarding, rebound, rigid Extremities exam: Present: normal inspection, full ROM, normal capillary refill. Absent: tenderness, pedal edema, joint swelling, calf tenderness Back exam: Present: normal inspection Neurological exam: Present: alert, oriented X3, CN II-XII intact Psychiatric exam: Present: normal affect, normal mood Skin exam: Present: warm, dry, intact, normal color. Absent: rash Course Vital Signs 03/01/19 03/01/19 03/01/19 08:47 11:00 12:00 Temperature 97.8 F Pulse Rate 91 87 99 Respiratory 18 18 Rate Blood Pressure 122/77 118/73 118/73 O2 Sat by Pulse 98 97 Oximetry Chest Pain MDM - MDM Upon arrival the patient was placed into room 7. A thorough history and physical exam was performed. I did review the patient's chart from her previous visit. A 12-lead EKG was performed and demonstrated a normal sinus rhythm. Laboratory studies were repeated. White blood cell count is 10.7. Coags are unremarkable. CMP demonstrates no acute findings. Troponin is negative. The patient does report that her son from an aortic dissection. 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 Prior to the imaging she did receive famotidine, Benadryl and Solu-Medrol as she does have an iodine ALLERGY. No aortic dissection or aneurysm seen on imaging. I discussed these results with the patient. Peripheral IV had been established. The patient was given 1 mg of Dilaudid and Nitropaste was applied to the chest as she did receive this medication yesterday and it states she has helped her symptoms. She is re evaluated and has improvement in her symptoms. I did recommend hospital admission in order to continue to trend the patient's troponins and have her evaluated by cardiology. The patient did agree to this. Bridging orders were placed the patient was transported to the floor in stable condition Disposition Clinical Impression: Chest pain Disposition: ADMITTED IP TO THIS HOSP Condition: Stable Is patient prescribed a controlled substance at d/c from ED?: No Decision to Admit Reason: Admit from EC Decision Date: 03/01/19 Decision Time: 11:14
--- NOTE | 2019-03-01 11:01 | CT ---
CT CHEST FOR PULMONARY EMBOLISM. EXAMINATION TYPE: CT angio chest DATE OF EXAM: 03/01/2019 INDICATION: midline chest pain just left of sternum CT DLP: 594.9 mGycm, Automated exposure control for dose reduction was used. CONTRAST: Patient injected with 100 mL of Isovue 370. COMPARISON: 03/02/2018, 07/24/2017 TECHNIQUE: CT of the chest is performed on a spiral scan at 2 mm thick sections. Study is performed with intravenous contrast timed for evaluation for pulmonary embolism. This will limit additional po rtions of the evaluation. 3-D MIP images reconstructed by the technologist are reviewed on the compu ter in the coronal and sagittal planes. FINDINGS: No persistent filling defects are evident to suggest an acute pulmonary embolism. Stable calcified lymph nodes or within the mediastinum. No enlarged mediastinal adenopathy is evident . These were present in 2018 The ascending aorta diameter at the level of the main pulmonary artery i s 3.5 cm. The main pulmonary artery diameter at the bifurcation is 2.6 cm. Left main pulmonary artery is widely patent. Left pulmonary arteries appear well visualized and are w idely patent. 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 Appears to be a chronic condition. Filling defect is not identified. The right main pulmonary artery appearance on noncontrast images appears stable from 2018. Attention is paid to the aorta. It may be a two-vessel arch present. No aortic dissection is evident. No aneurysmal dilatation is evident. There is some thickening of the posterior right apex measuring 1.2 cm. Series 201 image 8 lung window s there is an area of pneumonitis within the anterior medial right upper lung field. Image 201. Small amount of pneumonitis within the periphery of the right upper lobe. Series 201 and image 15. There i s a 0.3 cm calcification in the anterior lingula. Series 201 image 24 likely is old granuloma. Small area of pneumonitis is in the posterior right mid lung. Limited CT section through the upper abdomen are unremarkable. IMPRESSIONS: 1. No aortic dissection or aneurysm within the thoracic aorta. 2. 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 A discrete filling d efect is not identified. 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
[2019-03-01] MEDS ORDERED: NALOXONE 0.4 MG/ML 1 ML VIAL IV PRN (11:59)
[2019-03-01] MEDS ORDERED: LEVALBUTEROL INHALATION PRN (12:04)
[2019-03-01] MEDS ORDERED: LEVALBUTEROL NEBULIZED 1.25 MG INHALATION PRN (12:04)
[2019-03-01] MEDS ORDERED: IBUPROFEN 800 MG TAB PO PRN (12:04)
[2019-03-01] MEDS: HYDROcodone/APAP 10-325MG 1 EACH TAB PO PRN ×2 (12:18→17:59)
[2019-03-01 13:11] VITALS: BMI 53.4
[2019-03-01] MEDS ORDERED: diphenhydrAMINE 25 MG CAP PO PRN (15:14)
--- NOTE | 2019-03-01 15:14 | P.HPIM ---
History of Present Illness 48-year-old female presented the emergency room with complaints of chest pain. Patient had visited [facility]. Was referred to the emergency room. Patient was evaluated in emergency room yesterday decided to leave AMA returned this morning with chest pain that she states was worse than the day before. Describes chest pain as radiating to the back left arm has dizziness and nausea and shortness of breath. Patient is a smoker with COPD Review of Systems Cardiovascular: Reports chest pain, Reports dyspnea on exertion Gastrointestinal: Reports nausea Psychiatric: Reports anxiety Past Medical History Past Medical History: COPD, Fibromyalgia, Osteoarthritis (OA), Pneumonia Additional Past Medical History / Comment(s): BACK PAIN, HEART PALPITATIONS, INSOMNIA, PT STATES ABSENCE OF RT LUNG PULMONARY ARTERY. History of Any Multi-Drug Resistant Organisms: None Reported Past Surgical History: Section, Cholecystectomy, Hysterectomy, Orthopedic Surgery Additional Past Surgical History / Comment(s): LIA CATARACTS, NECK SURG, right knee surgery Past Anesthesia/Blood Transfusion Reactions: No Reported Reaction, Motion Sickness Past Psychological History: Anxiety, Panic Disorder, PTSD Smoking Status: Current every day smoker Past Alcohol Use History: Occasional Additional Past Alcohol Use History / Comment(s): has smoked for about 20 years 1ppd Past Drug Use History: None Reported - Past Family History Mother Family Medical History: Thyroid Disorder Father Family Medical History: Congestive Heart Failure (CHF) Additional Family Medical History / Comment(s): crohns, pacemaker Brother(s) Family Medical History: Diabetes Mellitus Daughter(s) Additional Family Medical History / Comment(s): hole in heart repaired Son(s) Additional Family Medical History / Comment(s): from aortic dissection Medications and Allergies Home Medications Medication Instructions Recorded Confirmed Type HYDROcodone/APAP 10-325MG [[place] 1 tab PO QID PRN 02/16/14 03/01/19 History 10-325] Levalbuterol Hfa Inhaler [Xopenex 2 puff INHALATION RT-BID PRN 12/25/15 03/01/19 History Hfa Inhaler] Levalbuterol Nebulized [Xopenex 1.25 mg INHALATION RT-TID PRN 09/10/18 03/01/19 History Nebulized] Ibuprofen [Motrin] 800 mg PO Q6H PRN 02/28/19 03/01/19 History diphenhydrAMINE [Benadryl] 50 mg PO HS PRN 02/28/19 03/01/19 History Allergies Allergy/AdvReac Type Severity Reaction Status Date / Time adhesive Allergy Unknown Rash/Hives Verified 03/01/19 08:50 Iodinated Contrast Media Allergy Rash/Hives Verified 03/01/19 08:50 [Iodinated Contrast Media - IV Dye] latex Allergy Rash/Hives Verified 03/01/19 08:50 morphine Allergy Rash/Hives Verified 03/01/19 08:50 albuterol AdvReac Rapid Verified 03/01/19 08:50 Heart Rate Physical Exam Vitals: Vital Signs Temp Pulse Pulse Resp BP BP Pulse Ox 03/01/19 12:53 97.5 F L 82 14 93/60 96 03/01/19 12:00 99 118/73 03/01/19 11:00 87 18 118/73 97 03/01/19 08:47 97.8 F 91 18 122/77 98 Intake and Output 03/01/19 03/01/19 03/01/19 06:59 14:59 22:59 Other: Weight 68.039 kg - Constitutional General appearance: mild distress - EENT Eyes: PERRLA Ears: bilateral: normal - Neck Neck: normal ROM - Respiratory Respiratory: bilateral: CTA, diminished - Cardiovascular Rhythm: regular - Gastrointestinal General gastrointestinal: soft - Integumentary Integumentary: normal - Neurologic Neurologic: CNII-XII intact - Musculoskeletal Musculoskeletal: gait normal - Psychiatric Psychiatric: A&O x's 3, appropriate affect, intact judgment & insight Results CBC & Chem 7: 03/01/19 09:25 03/01/19 09:25 Labs: Abnormal Lab Results - Last 24 Hours (Table) 03/01/19 03/01/19 Range/Units 09:25 09:25 WBC 10.7 H (3.8-10.6) k/uL Glucose 102 H (74-99) mg/dL CT scan - chest: report reviewed Thrombosis Risk Factor Assmnt - Choose All That Apply Any of the Below Risk Factors Present?: Yes Each Factor Represents 1 point: Age 41-60 years Thrombosis Risk Factor Assessment Total Risk Factor Score: 1 Thrombosis Risk Factor Assessment Level: Low Risk Assessment and Plan Plan: Assessment Chest pain troponins negative 1 COPD history of smoking Fibromyalgia Osteoarthritis Plan Cardiology consultation
[2019-03-01] MEDS ORDERED: ALPRAZolam 1 MG TAB PO PRN ×2 (15:15→18:33)
[2019-03-01] MEDS ORDERED: HYDROmorphone 0.5 MG/0.5 ML SYRINGE IVP PRN (18:35)
[2019-03-01 19:36] VITALS: RESP 18
[2019-03-02] MEDS: NICOTINE 21MG/24HR PATCH TRANSDERM SCH ×2 (06:08→10:02)
[2019-03-02 07:40] VITALS: BP 112/70; PULSE 78; TEMP 97.5
--- NOTE | 2019-03-02 10:34 | P.CRDCN ---
History of Present Illness History of present illness: This is a pleasant 48 showed female past medical history significant for COPD, chronic nicotine dependence, fibromyalgia, osteoarthritis, anxiety, PTSD and pulmonary atresia. She denies prior history of coronary artery disease, hypertension and dyslipidemia. 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 We have been asked to see her in consultation secondary to ches t discomfort. She complains of having a discomfort in the chest that has been going on constantly for the previous 3 days described as a cramping heavy pressure sensation. The pain is worse with deep inspiration and is reproducible on exam. The pain radiates across her entire chest, torso, down both arms, into the neck and back. This is associated with some shortness of breath. She denies nausea, vomiting, palpitations, dizziness or diaphoresis. The pain remains constant no matter what she is doind. When I entered the room she was sleeping sound and quite comfortable, when woken up she started groaning and thrashing in the bed stating she is hurting all over and doesn't know where she is or how she got here. EKG reveals sinus mechanism with no acute ST or T wave abnormalities. 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 No aortic dissection or aneurysm within the thoracic aorta. Laboratory data reviewed, WBC 10.7, hemoglobin 14.2, platelets 410, sodium 138, potassium 4.0, creatinine 0.9, magnesium 1.9, cardiac enzymes negative 3. She takes no daily cardiac medications. Most recent echocardiogram obtained 2017 revealed preserved LV systolic function with ejection fraction 50-55%. At the time of my exam: CONSTITUTIONAL: Denies fever. Denies chills. EYES: Denies blurred vision. Denies vision changes. Denies eye pain. EARS, NOSE, MOUTH & THROAT: Denies headache. Denies sore throat. Denies ear pain. CARDIOVASCULAR: Denies chest pain. Denies shortness of breath. Denies orthopnea. Denies PND. Denies palpitations. RESPIRATORY: Denies cough. GASTROINTESTINAL: Denies abdominal pain. Denies diarrhea. Denies constipation. Denies nausea. Denies vomiting. MUSCULOSKELETAL: Complains of pain all over. INTEGUMENTARY: Denies pruitis. Denies rash. NEUROLOGIC: Denies numbness. Denies tingling. Denies weakness. PSYCHIATRIC: Denies anxiety. Denies depression. ENDOCRINE: Denies fatigue. Denies weight change. Denies polydipsia. Denies polyurina. GENITOURINARY: Denies burning, hematuria or urgency with micturation. HEMATOLOGIC: Denies history of anemia. Denies bleeding. Blood pressure 112/70 heart rate 78 afebrile maintaining oxygen saturation on room air. GENERAL: This is a 48-year-old female in no apparent distress at the time of my examination. HEENT: Head is atraumatic, normocephalic. Pupils are equal, round. Sclerae anicteric. Conjunctivae are clear. Mucous membranes of the mouth are moist. Neck is supple. There is no jugular venous distention. No carotid bruit is heard. LUNGS: Clear to auscultation no wheezes, rales or rhonchi. No chest wall tenderness is noted on palpation or with deep breathing. HEART: Regular rate and rhythm without murmurs, rubs or gallops. S1 and S2 heard. ABDOMEN: Soft, nontender. Bowel sounds are heard. No organomegaly noted. EXTREMITIES: No evidence of peripheral edema and no calf tenderness noted. VASCULAR: Radial and dorsalis pedis pulses palpated, no evidence of clubbing. NEUROLOGIC: Patient is awake, alert and oriented x3. ASSESSMENT Chest pain, atypical. An acute coronary event has been ruled out. COPD Chronic nicotine dependence Fibromyalgia Anxiety, PTSD History of pulmonary atresia PLAN Obtain 2D echocardiogram and doppler study to assess cardiac structure and function. An acute coronary event has been ruled out. Pain is atypical for angina with re spirophasic and reproducible features. Ongoing medical management and evaluation for etiology of pain. No further cardiac work-up. Smoking cessation recommended. Thank you kindly for this consultation. Nurse Practitioner note has been reviewed, I agree with a documented findings and plan of care. Patient was seen and examined. Past Medical History Past Medical History: COPD, Fibromyalgia, Osteoarthritis (OA), Pneumonia Additional Past Medical History / Comment(s): BACK PAIN, HEART PALPITATIONS, INSOMNIA, PULMONARY HTN. PT STATES ABSENCE OF RT LUNG PULMONARY ARTERY. History of Any Multi-Drug Resistant Organisms: None Reported Past Surgical History: Section, Cholecystectomy, Hysterectomy, Orthopedic Surgery Additional Past Surgical History / Comment(s): LIA CATARACTS, NECK SURG, right knee surgery Past Anesthesia/Blood Transfusion Reactions: No Reported Reaction, Motion Sickness Past Psychological History: Anxiety, Panic Disorder, PTSD Smoking Status: Current every day smoker Past Alcohol Use History: Occasional Past Drug Use History: None Reported - Past Family History Mother Family Medical History: Thyroid Disorder Father Family Medical History: Congestive Heart Failure (CHF) Additional Family Medical History / Comment(s): crohns Brother(s) Family Medical History: Diabetes Mellitus Daughter(s) Additional Family Medical History / Comment(s): hole in heart repaired Son(s) Additional Family Medical History / Comment(s): from aortic dissection Medications and Allergies Home Medications Medication Instructions Recorded Confirmed Type HYDROcodone/APAP 10-325MG [[place] 1 tab PO QID PRN 02/16/14 03/01/19 History 10-325] Levalbuterol Hfa Inhaler [Xopenex 2 puff INHALATION RT-BID PRN 12/25/15 03/01/19 History Hfa Inhaler] Levalbuterol Nebulized [Xopenex 1.25 mg INHALATION RT-TID PRN 09/10/18 03/01/19 History Nebulized] Ibuprofen [Motrin] 800 mg PO Q6H PRN 02/28/19 03/01/19 History diphenhydrAMINE [Benadryl] 50 mg PO HS PRN 02/28/19 03/01/19 History Allergies Allergy/AdvReac Type Severity Reaction Status Date / Time adhesive Allergy Unknown Rash/Hives Verified 03/01/19 08:50 Iodinated Contrast Media Allergy Rash/Hives Verified 03/01/19 08:50 [Iodinated Contrast Media - IV Dye] latex Allergy Rash/Hives Verified 03/01/19 08:50 morphine Allergy Rash/Hives Verified 03/01/19 08:50 albuterol AdvReac Rapid Verified 03/01/19 08:50 Heart Rate Physical Exam Vitals: Vital Signs Temp Pulse Pulse Resp BP BP BP 03/02/19 07:00 97.5 F L 78 18 112/70 03/02/19 04:00 97.6 F 84 18 145/80 03/01/19 23:41 97.8 F 85 18 99/62 03/01/19 23:19 92 18 03/01/19 20:00 92 18 03/01/19 19:33 97.3 F L 92 18 99/60 03/01/19 16:00 97.5 F L 80 16 123/71 03/01/19 12:53 97.5 F L 82 14 93/60 03/01/19 12:00 99 118/73 03/01/19 11:00 87 18 118/73 03/01/19 08:47 97.8 F 91 18 122/77 Pulse Ox 03/02/19 07:00 95 03/02/19 04:00 96 03/01/19 23:41 95 03/01/19 23:19 03/01/19 20:00 03/01/19 19:33 95 03/01/19 16:00 95 03/01/19 12:53 96 03/01/19 12:00 03/01/19 11:00 97 03/01/19 08:47 98 Intake and Output 03/01/19 03/02/19 03/02/19 22:59 06:59 14:59 Other: # Voids 1 1 Results 03/01/19 09:25 03/01/19 09:25 Cardiac Enzymes 03/01/19 03/01/19 03/01/19 Range/Units 09:25 09:25 15:37 AST 14 (14-36) U/L Troponin I <0.012 <0.012 (0.000-0.034) ng/mL 03/01/19 Range/Units 21:19 AST (14-36) U/L Troponin I <0.012 (0.000-0.034) ng/mL Coagulation 03/01/19 Range/Units 09:25 PT 9.4 (9.0-12.0) sec APTT 25.6 (22.0-30.0) sec CBC 03/01/19 Range/Units 09:25 WBC 10.7 H (3.8-10.6) k/uL RBC 4.95 (3.80-5.40) m/uL Hgb 14.2 (11.4-16.0) gm/dL Hct 45.7 (34.0-46.0) % Plt Count 410 (150-450) k/uL Comprehensive Metabolic Panel 03/01/19 Range/Units 09:25 Sodium 138 (137-145) mmol/L Potassium 4.0 (3.5-5.1) mmol/L Chloride 105 (98-107) mmol/L Carbon Dioxide 25 (22-30) mmol/L BUN 11 (7-17) mg/dL Creatinine 0.90 (0.52-1.04) mg/dL Glucose 102 H (74-99) mg/dL Calcium 9.2 (8.4-10.2) mg/dL AST 14 (14-36) U/L ALT 18 (9-52) U/L Alkaline Phosphatase 79 (38-126) U/L Total Protein 6.9 (6.3-8.2) g/dL Albumin 4.0 (3.5-5.0) g/dL Current Medications Generic Name Dose Route Start Last Admin Trade Name Freq PRN Reason Stop Dose Admin Hydrocodone Bitart/Acetaminophen 1 each 03/01/19 12:04 03/01/19 17:59 [place] 10 PO 1 each QID PRN Administration Moderate to Severe Pain Alprazolam 2 mg 03/01/19 18:33 03/01/19 23:09 Xanax PO 2 mg DAILY PRN Administration Anxiety Diphenhydramine HCl 50 mg 03/01/19 15:14 Benadryl PO HS PRN Insomnia Hydromorphone HCl 0.5 mg 03/01/19 18:35 03/01/19 20:47 Dilaudid IVP 0.5 mg Q6HR PRN Administration Pain Ibuprofen 800 mg 03/01/19 12:04 03/01/19 14:29 Motrin PO 800 mg Q6H PRN Administration Mild Pain Miscellaneous Information 1 each 03/01/19 09:35 03/01/19 10:26 Rx Info: Iv Contrast Was Given MISCELLANE 03/03/19 09:38 1 each DAILY PRN Administration Per Protocol Naloxone HCl 0.2 mg 03/01/19 11:59 Narcan IV Q2M PRN Opioid Reversal Nicotine 1 patch 03/01/19 18:45 03/02/19 06:08 Habitrol 21mg/24hr Patch TRANSDERM Not Given DAILY YANE Patient's Own Med ( 1.25 mg 03/01/19 12:04 Levalbuterol INHALATION Nebulized 1.25 Mg) RT-TID PRN Shortness Of Breath Patient's Own Med ( 2 puff 03/01/19 12:04 Levalbuterol Hfa INHALATION Inhaler 2 Puff) RT-BID PRN Shortness Of Breath Intake and Output 03/01/19 03/02/19 03/02/19 22:59 06:59 14:59 Other: # Voids 1 1 03/01/19 09:25 03/01/19 09:25
--- NOTE | 2019-03-02 11:28 | P.DS ---
Providers Date of admission: 03/01/19 11:59 Expected date of discharge: 03/02/19 Attending physician: Beto Hernandez Consults: 03/01/19 12:01 Consult Physician Urgent Consulting Provider: [facility] Consult Reason/Comments: acute chest pain Do you want consulting provider notified?: Yes Primary care physician: Beto Hernandez [facility] Course: 48-year-old female presented the emergency room after evaluation by medics breast for chest pain. Patient went AMA returned the next day with worse chest pain. Patient was evaluated by cardiology and cleared for discharge. Patient agitated we haven't been able to give significant diagnosis with the chest. Echo has not been read yet patient inpatient to get home we'll discuss findings at visit Assessment Atypical chest pain troponins negative 3 pain reproducible with palpation and touch stretching and deep inspiration History of COPD with continued nicotine use Fibromyalgia Osteoarthritis Anxiety disorder Plan Follow up with family physician Dr. Beto Hernandez Patient Condition at Discharge: Stable Plan - Discharge Summary Discharge Rx Participant: No New Discharge Prescriptions: New Nicotine 21Mg/24Hr Patch [Habitrol] 1 patch TRANSDERM DAILY patch Continue HYDROcodone/APAP 10-325MG [[place] 10-325] 1 tab PO QID PRN PRN Reason: Pain Levalbuterol Hfa Inhaler [Xopenex Hfa Inhaler] 2 puff INHALATION RT-BID PRN PRN Reason: Shortness Of Breath Levalbuterol Nebulized [Xopenex Nebulized] 1.25 mg INHALATION RT-TID PRN PRN Reason: Shortness Of Breath diphenhydrAMINE [Benadryl] 50 mg PO HS PRN PRN Reason: Insomnia Ibuprofen [Motrin] 800 mg PO Q6H PRN PRN Reason: Pain Discharge Medication List HYDROcodone/APAP 10-325MG [[place] 10-325] 1 tab PO QID PRN 02/16/14 [History] Levalbuterol Hfa Inhaler [Xopenex Hfa Inhaler] 2 puff INHALATION RT-BID PRN 12/25/15 [History] Levalbuterol Nebulized [Xopenex Nebulized] 1.25 mg INHALATION RT-TID PRN 09/10/18 [History] Ibuprofen [Motrin] 800 mg PO Q6H PRN 02/28/19 [History] diphenhydrAMINE [Benadryl] 50 mg PO HS PRN 02/28/19 [History] Nicotine 21Mg/24Hr Patch [Habitrol] 1 patch TRANSDERM DAILY patch 03/02/19 [Rx] Follow up Appointment(s)/Referral(s): Beto Hernandez MD [Primary Care Provider] - 1-2 days
[2019-03-02 11:31] LABS: Cholesterol 252 mg/dL (<200); HDL Cholesterol 52 mg/dL (40-60); LDL Cholesterol,Calculated 162 mg/dL (0-99); Triglycerides 192 mg/dL (<150)
--- NOTE | 2019-03-02 11:43 | ECHOF ---
Referral Reason:cp, sob MEASUREMENTS -------- HEIGHT: 167.6 cm WEIGHT: 68.0 kg BP: 112/70 RVIDd: 3.1 cm (< 3.3) IVSd: 1.4 cm (0.6 - 1.1) LVIDd: 3.2 cm (3.9 - 5.3) LVPWd: 1.5 cm (0.6 - 1.1) IVSs: 1.9 cm LVIDs: 2.0 cm LVPWs: 1.8 cm LAESV Index (A-L): 21.53 ml/m Ao Diam: 2.9 cm (2.0 - 3.7) AV Cusp: 1.9 cm (1.5 - 2.6) LA Diam: 3.5 cm (2.7 - 3.8) TAPSE: 2.3 cm MV EXCURSION: 15.856 mm (> 18.000) MV EF SLOPE: 79 mm/s (70 - 150) EPSS: 0.5 cm MV E Bjorn: 0.82 m/s MV DecT: 195 ms MV A Bjorn: 0.88 m/s MV E/A Ratio: 0.93 RAP: 5.00 mmHg RVSP: 32.23 mmHg FINDINGS -------- Sinus rhythm. This was a technically adequate study. The left ventricular size is normal. There is mild concentric left ventricular hypertrophy. Overa ll left ventricular systolic function is normal with, an EF between 55 - 60 %. The diastolic fillin g pattern is normal for the age of the patient 7.74. The right ventricle is normal in size. The right ventricular systolic function is mildly impaired. Normal LA size by volume 22+/-6 ml/m2. The right atrial size is normal. Interatrial and interventricular septum intact. The aortic valve is trileaflet and appears structurally normal. There is no evidence of aortic regu rgitation. There is no evidence of aortic stenosis. No mitral regurgitation. Mild tricuspid regurgitation present. There is no evidence of pulmonary hypertension. The right v entricular systolic pressure, as measured by Doppler, is 32.23mmHg. There is no pulmonic regurgitation present. The aortic root size is normal. Normal inferior vena cava with normal inspiratory collapse consistent with estimated right atrial pre ssure of 5 mmHg. There is no pericardial effusion. CONCLUSIONS -------- 1. Sinus rhythm. 2. This was a technically adequate study. 3. The left ventricular size is normal. 4. There is mild concentric left ventricular hypertrophy. 5. Overall left ventricular systolic function is normal with, an EF between 55 - 60 %. 6. The diastolic filling pattern is normal for the age of the patient 7.74 7. The right ventricle is normal in size. 8. The right ventricular systolic function is mildly impaired. 9. Normal LA size by volume 22+/-6 ml/m2. 10. The right atrial size is normal. 11. Interatrial and interventricular septum intact. 12. The aortic valve is trileaflet and appears structurally normal. 13. There is no evidence of aortic regurgitation. 14. There is no evidence of aortic stenosis. 15. No mitral regurgitation. 16. Mild tricuspid regurgitation present. 17. There is no evidence of pulmonary hypertension. 18. The right ventricular systolic pressure, as measured by Doppler, is 32.23mmHg. 19. There is no pulmonic regurgitation present. 20. The aortic root size is normal. 21. Normal inferior vena cava with normal inspiratory collapse consistent with estimated right atrial pressure of 5 mmHg. 22. There is no pericardial effusion. SENIOR SOFTWARE DEVELOPER: Tricia Young, [facility]
== END 2019-03-02 11:45 | disposition home or self-care (01) ==
LOC: EC 08:42 → 1SOBS 11:59
PROVIDERS: ADMIT Family Medicine; ATTEND Family Medicine
DX: R07.89 Other chest pain (principal); R11.0 Nausea; R55 Syncope and collapse; J44.9 Chronic obstructive pulmonary disease, unspecified; M79.7 Fibromyalgia; M19.90 Unspecified osteoarthritis, unspecified site; Z87.01 Personal history of pneumonia (recurrent); M54.9 Dorsalgia, unspecified; R00.2 Palpitations; G47.00 Insomnia, unspecified; Q25.5 Atresia of pulmonary artery; E78.00 Pure hypercholesterolemia, unspecified; I27.20 Pulmonary hypertension, unspecified; Z90.49 Acquired absence of other specified parts of digestive tract; F43.10 Post-traumatic stress disorder, unspecified; F41.0 Panic disorder [episodic paroxysmal anxiety]; F17.210 Nicotine dependence, cigarettes, uncomplicated; Z79.891 Long term (current) use of opiate analgesic; Z79.899 Other long term (current) drug therapy; Z79.1 Long term (current) use of non-steroidal anti-inflammatories (NSAID); Z91.041 Radiographic dye allergy status; Z91.040 Latex allergy status; Z88.5 Allergy status to narcotic agent; Z88.8 Allergy status to other drugs, medicaments and biological substances; Z91.048 Other nonmedicinal substance allergy status; Z82.49 Family history of ischemic heart disease and other diseases of the circulatory system; Z83.3 Family history of diabetes mellitus; Z83.49 Family history of other endocrine, nutritional and metabolic diseases; Z83.79 Family history of other diseases of the digestive system
CPT/HCPCS: 93005 ×2; 96376; 96374; 96375; 99285; 36415; 93306; 80061; 80053; 83690; 83735; 84484; 85025; 85610; 85730; 71275; G0378 ×2; J1200; J2930; J1170; Q9967

== ENCOUNTER 2019-04-12 11:11 | Observation (INO) | payer OTHER ==
[2019-04-12] MEDS ORDERED: NITROGLYCERIN OINT 1 INCH/GM PACKET TOPICAL STA (11:35)
[2019-04-12] MEDS ORDERED: ASPIRIN 81 MG PO STA (11:35)
--- NOTE | 2019-04-12 11:39 | ED ---
General Adult HPI - General Chief complaint: Chest Pain Stated complaint: chest pain/arm numbness Source: patient, RN notes reviewed, old records reviewed Mode of arrival: wheelchair Limitations: no limitations - History of Present Illness Initial comments: Is a 48-year-old female presents emergency Department complaining of chest pain. Patient states it radiates to her shoulder and down her arm. Patient states started earlier today is been constant ever since. 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 Patient states with this chest pain she has had some difficulty breathing. Patient denies any fever chills. Patient denies any abdominal pain patient denies nausea vomiting. Patient states she continues to smoke. Patient states she does have high cholesterol as well. Patient denies any headache patient denies numbness weakness. Patient states occasionally she has felt some palpitations. Patient denies any recent cough. Patient denies any lightheadedness or dizziness - Related Data Home Medications Medication Instructions Recorded Confirmed HYDROcodone/APAP 10-325MG [Trilla 1 tab PO TID 02/16/14 04/12/19 10-325] Levalbuterol Hfa Inhaler [Xopenex 2 puff INHALATION RT-BID PRN 12/25/15 04/12/19 Hfa Inhaler] Levalbuterol Nebulized [Xopenex 1.25 mg INHALATION RT-TID PRN 09/10/18 04/12/19 Nebulized] Ibuprofen [Motrin] 800 mg PO Q6H PRN 02/28/19 04/12/19 diphenhydrAMINE [Benadryl] 50 mg PO HS 02/28/19 04/12/19 Atorvastatin Calcium [Lipitor] 20 mg PO HS 04/12/19 04/12/19 Allergies Allergy/AdvReac Type Severity Reaction Status Date / Time adhesive Allergy Unknown Rash/Hives Verified 04/12/19 12:03 Iodinated Contrast Media Allergy Anaphylaxis Verified 04/12/19 12:03 [Iodinated Contrast Media - IV Dye] latex Allergy Rash/Hives Verified 04/12/19 12:03 morphine Allergy Rash/Hives Verified 04/12/19 12:03 albuterol AdvReac Rapid Verified 04/12/19 12:03 Heart Rate Review of Systems ROS Statement: Those systems with pertinent positive or pertinent negative responses have been documented in the HPI. ROS Other: All systems not noted in ROS Statement are negative. Past Medical History Past Medical History: COPD, Fibromyalgia, Osteoarthritis (OA), Pneumonia Additional Past Medical History / Comment(s): BACK PAIN, HEART PALPITATIONS, INSOMNIA, PULMONARY HTN. PT STATES ABSENCE OF RT LUNG PULMONARY ARTERY. History of Any Multi-Drug Resistant Organisms: None Reported Past Surgical History: Section, Cholecystectomy, Hysterectomy, Orthopedic Surgery Additional Past Surgical History / Comment(s): LIA CATARACTS, NECK SURG, right knee surgery Past Anesthesia/Blood Transfusion Reactions: No Reported Reaction, Motion Sickness Past Psychological History: Anxiety, Depression, Panic Disorder, PTSD Smoking Status: Current every day smoker Past Alcohol Use History: Occasional Past Drug Use History: None Reported - Past Family History Mother Family Medical History: Thyroid Disorder Father Family Medical History: Congestive Heart Failure (CHF) Additional Family Medical History / Comment(s): crohns Brother(s) Family Medical History: Diabetes Mellitus Daughter(s) Additional Family Medical History / Comment(s): hole in heart repaired Son(s) Additional Family Medical History / Comment(s): from aortic dissection General Exam - General Exam Comments Initial Comments: GENERAL: Patient is well-developed and well-nourished. Patient is nontoxic and well- hydrated and is in mild distress. ENT: Neck is soft and supple. No significant lymphadenopathy is noted. Oropharynx is clear. Moist mucous membranes. Neck has full range of motion without eliciting any pain. EYES: The sclera were anicteric and conjunctiva were pink and moist. Extraocular movements were intact and pupils were equal round and reactive to light. Eyelids were unremarkable. PULMONARY: Unlabored respirations. Good breath sounds bilaterally. No audible rales rhonchi or wheezing was noted. CARDIOVASCULAR: There is a regular rate and rhythm without any murmurs gallops or rubs. ABDOMEN: Soft and nontender with normal bowel sounds. SKIN: Skin is clear with no lesions or rashes and otherwise unremarkable. NEUROLOGIC: Patient is alert and oriented x3. Cranial nerves II through XII are grossly intact. Motor and sensory are also intact. Normal speech, volume and content. Symmetrical smile. MUSCULOSKELETAL: Normal extremities with adequate strength and full range of motion. LYMPHATICS: No significant lymphadenopathy is noted PSYCHIATRIC: Normal psychiatric evaluation. Limitations: no limitations Course Vital Signs 04/12/19 04/12/19 04/12/19 11:17 12:00 12:30 Temperature 97.7 F Pulse Rate 89 92 93 Respiratory 18 20 18 Rate Blood Pressure 125/72 130/76 120/72 O2 Sat by Pulse 98 98 96 Oximetry Medical Decision Making - Medical Decision Making EKG shows normal sinus rhythm at 92 bpm CO interval 148 QRSs 82 QT interval 354 QTC is 437. Patient's EKG shows no ST segment elevation or depression. I discussed smoking cessation for greater than 3 minutes. The risks of smoking were discussed with the patient including but not limited to risks of cancer, stroke, coronary artery disease and COPD. Also discussed with the patient were multiple methods of quitting smoking. Lastly we discussed the financial costs of smoking. Chest x-ray showed no acute normalities. Patient would only states she got her oral Trilla. I spoke with Dr. Hernandez he agreed to admit the patient admitted the patient wrote admitting orders I consulted cardiology - Lab Data Result diagrams: 04/12/19 10:30 04/12/19 10:30 Lab Results 04/12/19 04/12/19 04/12/19 Range/Units 10:30 10:30 10:30 WBC 10.9 H (3.8-10.6) k/uL RBC 4.99 (3.80-5.40) m/uL Hgb 14.9 (11.4-16.0) gm/dL Hct 45.8 (34.0-46.0) % MCV 91.8 (80.0-100.0) fL MCH 29.8 (25.0-35.0) pg MCHC 32.4 (31.0-37.0) g/dL RDW 14.2 (11.5-15.5) % Plt Count 405 (150-450) k/uL Neutrophils % 53 % Lymphocytes % 33 % Monocytes % 7 % Eosinophils % 4 % Basophils % 1 % Neutrophils # 5.8 (1.3-7.7) k/uL Lymphocytes # 3.6 (1.0-4.8) k/uL Monocytes # 0.8 (0-1.0) k/uL Eosinophils # 0.4 (0-0.7) k/uL Basophils # 0.1 (0-0.2) k/uL PT 9.4 (9.0-12.0) sec INR 0.9 (<1.2) APTT 26.1 (22.0-30.0) sec Sodium 139 (137-145) mmol/L Potassium 3.9 (3.5-5.1) mmol/L Chloride 107 (98-107) mmol/L Carbon Dioxide 24 (22-30) mmol/L Anion Gap 8 mmol/L BUN 11 (7-17) mg/dL Creatinine 0.79 (0.52-1.04) mg/dL Est GFR (CKD-EPI)AfAm >90 (>60 ml/min/1.73 sqM) Est GFR (CKD-EPI)NonAf >90 (>60 ml/min/1.73 sqM) Glucose 116 H (74-99) mg/dL Calcium 9.3 (8.4-10.2) mg/dL Magnesium 1.9 (1.6-2.3) mg/dL Total Bilirubin 0.3 (0.2-1.3) mg/dL AST 18 (14-36) U/L ALT 19 (9-52) U/L Alkaline Phosphatase 73 (38-126) U/L Troponin I (0.000-0.034) ng/mL Total Protein 7.1 (6.3-8.2) g/dL Albumin 4.1 (3.5-5.0) g/dL 04/12/19 Range/Units 10:30 WBC (3.8-10.6) k/uL RBC (3.80-5.40) m/uL Hgb (11.4-16.0) gm/dL Hct (34.0-46.0) % MCV (80.0-100.0) fL MCH (25.0-35.0) pg MCHC (31.0-37.0) g/dL RDW (11.5-15.5) % Plt Count (150-450) k/uL Neutrophils % % Lymphocytes % % Monocytes % % Eosinophils % % Basophils % % Neutrophils # (1.3-7.7) k/uL Lymphocytes # (1.0-4.8) k/uL Monocytes # (0-1.0) k/uL Eosinophils # (0-0.7) k/uL Basophils # (0-0.2) k/uL PT (9.0-12.0) sec INR (<1.2) APTT (22.0-30.0) sec Sodium (137-145) mmol/L Potassium (3.5-5.1) mmol/L Chloride (98-107) mmol/L Carbon Dioxide (22-30) mmol/L Anion Gap mmol/L BUN (7-17) mg/dL Creatinine (0.52-1.04) mg/dL Est GFR (CKD-EPI)AfAm (>60 ml/min/1.73 sqM) Est GFR (CKD-EPI)NonAf (>60 ml/min/1.73 sqM) Glucose (74-99) mg/dL Calcium (8.4-10.2) mg/dL Magnesium (1.6-2.3) mg/dL Total Bilirubin (0.2-1.3) mg/dL AST (14-36) U/L ALT (9-52) U/L Alkaline Phosphatase (38-126) U/L Troponin I <0.012 (0.000-0.034) ng/mL Total Protein (6.3-8.2) g/dL Albumin (3.5-5.0) g/dL Disposition Clinical Impression: Chest pain Disposition: ADMITTED IP TO THIS HOSP Referrals: Beto Hernandez MD [Primary Care Provider] - 1-2 days Time of Disposition: 13:32
[2019-04-12 12:00] LABS: Basophils # (A) 0.1 k/uL (0-0.2); Basophils % (A) 1 %; Eosinophils # (A) 0.4 k/uL (0-0.7); Eosinophils % (A) 4 %; HCT 45.8 % (34.0-46.0); HGB 14.9 gm/dL (11.4-16.0); Lymphocytes # (A) 3.6 k/uL (1.0-4.8); Lymphocytes % (A) 33 %; MCH 29.8 pg (25.0-35.0); MCHC 32.4 g/dL (31.0-37.0); MCV 91.8 fL (80.0-100.0); Mean Platelet Volume 6.2; Monocytes # (A) 0.8 k/uL (0-1.0); Monocytes % (A) 7 %; Neutrophils # (A) 5.8 k/uL (1.3-7.7); Neutrophils % (A) 53 %; Platelet Count 405 k/uL (150-450); RBC 4.99 m/uL (3.80-5.40); RDW 14.2 % (11.5-15.5); WBC 10.9 k/uL (3.8-10.6)
[2019-04-12] MEDS ORDERED: KETOROLAC 30 MG/ML 1 ML VIAL IVP STA (12:11)
[2019-04-12] MEDS: ACETAMINOPHEN TAB 325 MG TAB PO STA ×2 (12:17→12:20)
[2019-04-12 12:22] LABS: ALT 19 U/L (9-52); AST 18 U/L (14-36); African American GFR (CKD) >90 (>60 ml/min/1.73 sqM); Albumin 4.1 g/dL (3.5-5.0); Alkaline Phosphatase 73 U/L (38-126); Anion Gap 8 mmol/L; Blood Urea Nitrogen 11 mg/dL (7-17); Calcium 9.3 mg/dL (8.4-10.2); Carbon Dioxide 24 mmol/L (22-30); Chloride 107 mmol/L (98-107); Glucose 116 mg/dL (74-99); Magnesium 1.9 mg/dL (1.6-2.3); Non-African American GFR(CKD) >90 (>60 ml/min/1.73 sqM); Potassium 3.9 mmol/L (3.5-5.1); Sodium 139 mmol/L (137-145); Total Bilirubin 0.3 mg/dL (0.2-1.3); Total Protein 7.1 g/dL (6.3-8.2)
--- NOTE | 2019-04-12 12:24 | XR ---
EXAMINATION TYPE: XR chest 2V DATE OF EXAM: 04/12/2019 COMPARISON: 02/28/2017 INDICATION: Chest pain left side TECHNIQUE: Frontal and lateral views of the chest are obtained. FINDINGS: The heart size is normal. The pulmonary vasculature is normal. The lungs are clear. IMPRESSION: 1. No acute pulmonary process.
[2019-04-12 12:29] LABS: INR 0.9 (<1.2); Partial Thromboplastin Time 26.1 sec (22.0-30.0); Prothrombin Time 9.4 sec (9.0-12.0)
[2019-04-12] MEDS ORDERED: NITROGLYCERIN SL TABS 0.4 MG TAB SUBLINGUAL PRN (13:32)
[2019-04-12] MEDS ORDERED: LORazepam 2 MG/ML INJ IV STA (13:44)
[2019-04-12] MEDS ORDERED: LEVALBUTEROL NEBULIZED 1.25 MG INHALATION PRN (15:11)
[2019-04-12] MEDS ORDERED: HYDROcodone/APAP 10-325MG 1 EACH TAB PO SCH (16:00)
[2019-04-12 16:15] VITALS: BP 116/56; PULSE 92; RESP 16; TEMP 98.2
[2019-04-12] MEDS: NITROGLYCERIN OINT 1 INCH/GM PACKET TOPICAL SCH ×2 (17:14→17:15)
[2019-04-12] MEDS ORDERED: diphenhydrAMINE 50 MG CAP PO SCH (21:00)
[2019-04-12] MEDS ORDERED: ATORVASTATIN 20 MG TAB PO SCH (21:00)
[2019-04-13] MEDS ORDERED: ASPIRIN 325 MG TAB PO SCH (09:00)
--- NOTE | 2019-04-13 11:29 | P.DS ---
Providers Date of admission: 04/12/19 13:38 Expected date of discharge: 04/12/19 Attending physician: Beto Hernandez Consults: 04/12/19 13:32 Consult Physician Urgent Consulting Provider: [facility] Consult Reason/Comments: Chest pain Do you want consulting provider notified?: Yes Primary care physician: Beto Hernandez [facility] Course: 48 female presented to the emergency room with complaints of chest pain. Patient was admitted for evaluation. In 1744 patient decided to leave the hospital AGAINST MEDICAL ADVICE Assessment Chest pain History of COPD Fibromyalgia Osteoarthritis Anxiety/depression Plan Patient left AGAINST MEDICAL ADVICE Plan - Discharge Summary Discharge Rx Participant: No New Discharge Prescriptions: No Action HYDROcodone/APAP 10-325MG [[place] 10-325] 1 tab PO QID PRN PRN Reason: Pain Levalbuterol Hfa Inhaler [Xopenex Hfa Inhaler] 2 puff INHALATION RT-QID PRN PRN Reason: Shortness Of Breath Levalbuterol Nebulized [Xopenex Nebulized] 1.25 mg INHALATION RT-Q4H PRN PRN Reason: Shortness Of Breath diphenhydrAMINE [Benadryl] 50 mg PO HS Ibuprofen [Motrin] 800 mg PO Q8H PRN PRN Reason: Pain Atorvastatin Calcium [Lipitor] 20 mg PO HS Discharge Medication List HYDROcodone/APAP 10-325MG [[place] 10-325] 1 tab PO QID PRN 02/16/14 [History] Levalbuterol Hfa Inhaler [Xopenex Hfa Inhaler] 2 puff INHALATION RT-QID PRN 12/25/15 [History] Levalbuterol Nebulized [Xopenex Nebulized] 1.25 mg INHALATION RT-Q4H PRN [History] Ibuprofen [Motrin] 800 mg PO Q8H PRN 02/28/19 [History] diphenhydrAMINE [Benadryl] 50 mg PO HS 02/28/19 [History] Atorvastatin Calcium [Lipitor] 20 mg PO HS 04/12/19 [History] Follow up Appointment(s)/Referral(s): Beto Hernandez MD [Primary Care Provider] - 1-2 days Discharge Disposition: Left Against Medical Advice
== END 2019-04-12 18:01 | disposition left against medical advice (07) ==
LOC: EC 11:11 → 1SOBS 13:38 → 3SCARD 15:25
PROVIDERS: ADMIT Family Medicine; ATTEND Family Medicine
DX: R07.9 Chest pain, unspecified (principal); F17.200 Nicotine dependence, unspecified, uncomplicated; Z53.29 Procedure and treatment not carried out because of patient's decision for other reasons; E78.00 Pure hypercholesterolemia, unspecified; R00.2 Palpitations; J44.9 Chronic obstructive pulmonary disease, unspecified; M79.7 Fibromyalgia; M19.90 Unspecified osteoarthritis, unspecified site; Z87.01 Personal history of pneumonia (recurrent); G47.00 Insomnia, unspecified; I27.20 Pulmonary hypertension, unspecified; Q25.79 Other congenital malformations of pulmonary artery; Z90.49 Acquired absence of other specified parts of digestive tract; Z90.710 Acquired absence of both cervix and uterus; Z98.42 Cataract extraction status, left eye; Z98.41 Cataract extraction status, right eye; F41.9 Anxiety disorder, unspecified; F32.9 Major depressive disorder, single episode, unspecified; F41.0 Panic disorder [episodic paroxysmal anxiety]; F43.10 Post-traumatic stress disorder, unspecified; Z83.49 Family history of other endocrine, nutritional and metabolic diseases; Z83.3 Family history of diabetes mellitus; Z84.89 Family history of other specified conditions; Z82.49 Family history of ischemic heart disease and other diseases of the circulatory system; Z83.79 Family history of other diseases of the digestive system; Z79.891 Long term (current) use of opiate analgesic; Z79.899 Other long term (current) drug therapy; Z79.1 Long term (current) use of non-steroidal anti-inflammatories (NSAID); Z91.041 Radiographic dye allergy status; Z91.040 Latex allergy status; Z88.5 Allergy status to narcotic agent; Z88.8 Allergy status to other drugs, medicaments and biological substances; Z91.09 Other allergy status, other than to drugs and biological substances
CPT/HCPCS: 96374; 96375; 99285; 36415; 93005; 80053; 83735; 84484; 85025; 85610; 85730; 71046; G0378; J2060; J1885

== ENCOUNTER 2019-07-24 14:40 | Emergency (ER) | payer OTHER ==
[2019-07-24] MEDS ORDERED: FAMOTIDINE 20 MG/2 ML VIAL IV STA (15:33)
[2019-07-24] MEDS ORDERED: HYDROmorphone 0.5 MG/0.5 ML SYRINGE IVP STA ×2 (15:33→17:24)
[2019-07-24] MEDS ORDERED: diphenhydrAMINE 50 MG/ML 1 ML VIAL IVP STA (15:33)
[2019-07-24] MEDS ORDERED: methylPREDNISolone SOD SUCCI 125 MG/2 ML VIAL IV STA (15:33)
[2019-07-24 15:53] LABS: Basophils % (A) 0 %; Eosinophils # (A) 0.4 k/uL (0-0.7); Eosinophils % (A) 2 %; HCT 43.2 % (34.0-46.0); HGB 14.1 gm/dL (11.4-16.0); Lymphocytes # (A) 3.2 k/uL (1.0-4.8); Lymphocytes % (A) 21 %; MCH 30.6 pg (25.0-35.0); MCHC 32.6 g/dL (31.0-37.0); MCV 94.1 fL (80.0-100.0); Monocytes % (A) 7 %; Neutrophils # (A) 10.4 k/uL (1.3-7.7); Neutrophils % (A) 68 %; Platelet Count 404 k/uL (150-450); RBC 4.59 m/uL (3.80-5.40); RDW 13.7 % (11.5-15.5); WBC 15.2 k/uL (3.8-10.6)
[2019-07-24 15:54] LABS: Amorphous Sediment,Urine Rare /hpf; Appearance,Urine Cloudy (Clear); Bilirubin,Urine Negative (Negative); Blood,Urine Moderate (Negative); Color,Urine Yellow; Glucose,Urine (UA) Negative (Negative); Ketones,Urine Negative (Negative); Leukocyte Esterase,Urine Negative (Negative); Mucus,Urine Rare /hpf; Nitrite,Urine Negative (Negative); Protein,Urine Negative (Negative); RBC,Urine 1 /hpf (0-5); Specific Gravity,Urine 1.022 (1.001-1.035); Squamous Epithelial Cell,Urine 15 /hpf (0-4); WBC,Urine 5 /hpf (0-5)
[2019-07-24 16:04] LABS: ALT 20 U/L (4-34); AST 24 U/L (14-36); African American GFR (CKD) >90 (>60 ml/min/1.73 sqM); Alkaline Phosphatase 75 U/L (38-126); Amylase 72 U/L (30-110); Anion Gap 7 mmol/L; Blood Urea Nitrogen 11 mg/dL (7-17); Calcium 9.1 mg/dL (8.4-10.2); Carbon Dioxide 25 mmol/L (22-30); Chloride 106 mmol/L (98-107); Glucose 98 mg/dL (74-99); Non-African American GFR(CKD) >90 (>60 ml/min/1.73 sqM); Potassium 4.6 mmol/L (3.5-5.1); Sodium 138 mmol/L (137-145); Total Bilirubin 0.6 mg/dL (0.2-1.3); Total Protein 6.7 g/dL (6.3-8.2)
--- NOTE | 2019-07-24 17:03 | CT ---
EXAMINATION TYPE: CT abdomen pelvis w con DATE OF EXAM: 07/24/2019 COMPARISON: 06/04/2016 HISTORY: right flank pain CT DLP: 824.1 mGycm Automated exposure control for dose reduction was used. CONTRAST: Performed with IV Contrast, patient injected with 100 mL of Isovue 370. Multiple axial sections were obtained from the diaphragm to the floor the pelvis with intravenous con trast. There is some mild interstitial density right lung base. There is no pleural effusion. Heart size is normal. There is no pericardial effusion. Liver spleen pancreas appear normal. There are clips from cholecystectomy. Bile ducts are not dilated . Stomach is intact. There is no adrenal mass. Kidneys have normal size and contour. There is normal contrast opacificatio n of the kidneys. Ureters are not dilated. Bladder distends smoothly. There is no inguinal hernia. Th ere is no free fluid in the pelvis. There is no mesenteric edema. There is no ascites or free air. There is no evidence of a bowel obstru ction. There is apparent hysterectomy. Lumbar vertebra have normal spacing and alignment. There is no compression fracture. Bony pelvis is i ntact. Appendix is posterior and medial and appears normal. There is 1.7 cm enlarged lymph node adjac ent to the left iliac artery. This is slightly increased compared to old exam. IMPRESSION: Single enlarged left iliac lymph node slightly increased compared to old exam. Otherwise negative exa m.
--- NOTE | 2019-07-24 17:15 | ED ---
Abdominal Pain HPI - General Chief Complaint: Abdominal Pain Stated Complaint: Rash, abdominal pain Time Seen by Provider: 07/24/19 14:49 Source: patient Mode of arrival: ambulatory Limitations: no limitations - History of Present Illness Initial Comments: 48yo female presenting today for chief complaint of rash and abdominal pain x 1 day. Patient states she has noticed a rash since yesterday on the right side of her abdomen she states the pain stretches from the area of the rash towards her back. Patient states she went to an outside urgent care for evaluation where she was sent to the emergency department to rule out appendicitis as well as pos sible kidney stone given patient was found to have hematuria on a urinalysis. Patient denies any chest pain shortness of breath she denies any nausea vomiting diarrhea fevers. Patient denies any eye redness/pain, visual changes, earing loss, lesion of face/head. Patient denies any other complaints. Upon arrival patient appears well there is no signs of acute distress. - Related Data Home Medications Medication Instructions Recorded Confirmed HYDROcodone/APAP 10-325MG [[place] 1 tab PO QID PRN 02/16/14 04/12/19 10-325] Levalbuterol Hfa Inhaler [Xopenex 2 puff INHALATION RT-QID PRN 12/25/15 04/12/19 Hfa Inhaler] Levalbuterol Nebulized [Xopenex 1.25 mg INHALATION RT-Q4H PRN 09/10/18 04/12/19 Nebulized] Ibuprofen [Motrin] 800 mg PO Q8H PRN 02/28/19 04/12/19 diphenhydrAMINE [Benadryl] 50 mg PO HS 02/28/19 04/12/19 Atorvastatin Calcium [Lipitor] 20 mg PO HS 04/12/19 04/12/19 Previous Rx's Medication Instructions Recorded valACYclovir HCL [Valtrex] 1,000 mg PO Q8HR 7 Days #21 tab 07/24/19 Allergies Allergy/AdvReac Type Severity Reaction Status Date / Time adhesive Allergy Unknown Rash/Hives Verified 07/24/19 17:08 Iodinated Contrast Media Allergy Anaphylaxis Verified 07/24/19 17:08 [Iodinated Contrast Media - IV Dye] latex Allergy Rash/Hives Verified 07/24/19 17:08 morphine Allergy Rash/Hives Verified 07/24/19 17:08 albuterol AdvReac Rapid Verified 07/24/19 17:08 Heart Rate Review of Systems ROS Statement: Those systems with pertinent positive or pertinent negative responses have been documented in the HPI. ROS Other: All systems not noted in ROS Statement are negative. Past Medical History Past Medical History: COPD, Fibromyalgia, Hyperlipidemia, Osteoarthritis (OA), Pneumonia Additional Past Medical History / Comment(s): Pulmonary htn, absence of R lung pulmonary artery, bronchitis, past home oxygen use, chronic cervical and low back pain, palpitations, insomnia History of Any Multi-Drug Resistant Organisms: None Reported Past Surgical History: Section, Cholecystectomy, EPS, Heart Catheterization, Hysterectomy, Orthopedic Surgery, Tubal Ligation Additional Past Surgical History / Comment(s): Cervical surgery with hardware, R knee arthroscopies x 2, pain clinic procedures, colonoscopy Past Anesthesia/Blood Transfusion Reactions: No Reported Reaction, Motion Sickn ess Past Psychological History: Anxiety, Depression, Panic Disorder, PTSD Smoking Status: Current every day smoker Past Alcohol Use History: None Reported Past Drug Use History: None Reported - Past Family History Mother Family Medical History: Thyroid Disorder Father Family Medical History: Congestive Heart Failure (CHF) Additional Family Medical History / Comment(s): crohns Brother(s) Family Medical History: Diabetes Mellitus Daughter(s) Additional Family Medical History / Comment(s): hole in heart repaired Son(s) Additional Family Medical History / Comment(s): from aortic dissection at the age of 17 yrs. General Exam - General Exam Comments Initial Comments: General: The patient is awake and alert, in no distress, and does not appear acutely ill. Eye: Pupils are equal, round and reactive to light, extra-ocular movements are intact. No nystagmus. There is normal conjunctiva bilaterally. No signs of icterus. Ears, nose, mouth and throat: There are moist mucous membranes and no oral lesions. Neck: The neck is supple, there is no tenderness or JVD. Cardiovascular: There is a regular rate and rhythm. No murmur, rub or gallop is appreciated. Respiratory: Lungs are clear to auscultation, respirations are non-labored, breath sounds are equal. No wheezes, stridor, rales, or rhonchi. Gastrointestinal: Soft, non-distended, non-tender abdomen, patient states it feels more like the skin, sharp shooting pain with grazing of skin of abdomen, remaining abdomen is nontender and without masses or organomegaly noted. There is no rebound or guarding present. No CVA tenderness. Musculoskeletal: Normal ROM, no tenderness. Strength 5/5. Sensation intact. Pulses equal bilaterally 2+. Neurological: A&O x 3. CN II-XII intact grossly, There are no obvious motor or sensory deficits. Coordination appears grossly intact. Speech is normal. Skin: Skin is warm and dry and no rashes, Vesicular grouped lesion on right side of abdomen, there is no lesions but pain to palpation that span across what appears to be the same dermatome towards patient right flank. Psychiatric: Cooperative, appropriate mood & affect, normal judgment. Limitations: no limitations Course Vital Signs 07/24/19 07/24/19 14:42 17:18 Temperature 97.6 F 98.7 F Pulse Rate 106 H 83 Respiratory 22 18 Rate Blood Pressure 110/71 111/67 O2 Sat by Pulse 98 97 Oximetry Medical Decision Making - Medical Decision Making 48yo female presenting for rash abdominal pain x 1 day. Physical examination findings concerning for bursal infection patient did have chickenpox as a child. Patient was sent to rule out appendicitis there was right lower quadrant pain however I felt this is more due to touching of the skin. CT revealed no appendicitis no nephro or urolithiasis. Patient did have hematuria. No signs of infection however had elevated white blood cell count. At this time will treat patient with Valtrex. I recommended patient follow-up with primary care provider as well as urology for hematuria. Otherwise patient appears well signs of acute distress she does not appear toxic patient was discharged appearing well after discussed the case by attending provider Dr. Boston. - Lab Data Result diagrams: 07/24/19 15:30 07/24/19 15:30 Lab Results 07/24/19 07/24/19 07/24/19 Range/Units 15:30 15:30 15:30 WBC 15.2 H (3.8-10.6) k/uL RBC 4.59 (3.80-5.40) m/uL Hgb 14.1 (11.4-16.0) gm/dL Hct 43.2 (34.0-46.0) % MCV 94.1 (80.0-100.0) fL MCH 30.6 (25.0-35.0) pg MCHC 32.6 (31.0-37.0) g/dL RDW 13.7 (11.5-15.5) % Plt Count 404 (150-450) k/uL Neutrophils % 68 % Lymphocytes % 21 % Monocytes % 7 % Eosinophils % 2 % Basophils % 0 % Neutrophils # 10.4 H (1.3-7.7) k/uL Lymphocytes # 3.2 (1.0-4.8) k/uL Monocytes # 1.0 (0-1.0) k/uL Eosinophils # 0.4 (0-0.7) k/uL Basophils # 0.0 (0-0.2) k/uL Sodium (137-145) mmol/L Potassium (3.5-5.1) mmol/L Chloride (98-107) mmol/L Carbon Dioxide (22-30) mmol/L Anion Gap mmol/L BUN (7-17) mg/dL Creatinine (0.52-1.04) mg/dL Est GFR (CKD-EPI)AfAm (>60 ml/min/1.73 sqM) Est GFR (CKD-EPI)NonAf (>60 ml/min/1.73 sqM) Glucose (74-99) mg/dL Calcium (8.4-10.2) mg/dL Total Bilirubin (0.2-1.3) mg/dL AST (14-36) U/L ALT (4-34) U/L Alkaline Phosphatase (38-126) U/L Total Protein (6.3-8.2) g/dL Albumin (3.5-5.0) g/dL Amylase (30-110) U/L Lipase (23-300) U/L Urine Color Yellow Urine Appearance Cloudy H (Clear) Urine pH 6.0 (5.0-8.0) Ur Specific [place] 1.022 (1.001-1.035) Urine Protein Negative (Negative) Urine Glucose (UA) Negative (Negative) Urine Ketones Negative (Negative) Urine Blood Moderate H (Negative) Urine Nitrite Negative (Negative) Urine Bilirubin Negative (Negative) Urine Urobilinogen 2.0 (<2.0) mg/dL Ur Leukocyte Esterase Negative (Negative) Urine RBC 1 (0-5) /hpf Urine WBC 5 (0-5) /hpf Ur Squamous Epith Cells 15 H (0-4) /hpf Amorphous Sediment Rare H (None) /hpf Urine Mucus Rare H (None) /hpf Urine HCG, Qual Not Detected (Not Detectd) 07/24/19 Range/Units 15:30 WBC (3.8-10.6) k/uL RBC (3.80-5.40) m/uL Hgb (11.4-16.0) gm/dL Hct (34.0-46.0) % MCV (80.0-100.0) fL MCH (25.0-35.0) pg MCHC (31.0-37.0) g/dL RDW (11.5-15.5) % Plt Count (150-450) k/uL Neutrophils % % Lymphocytes % % Monocytes % % Eosinophils % % Basophils % % Neutrophils # (1.3-7.7) k/uL Lymphocytes # (1.0-4.8) k/uL Monocytes # (0-1.0) k/uL Eosinophils # (0-0.7) k/uL Basophils # (0-0.2) k/uL Sodium 138 (137-145) mmol/L Potassium 4.6 (3.5-5.1) mmol/L Chloride 106 (98-107) mmol/L Carbon Dioxide 25 (22-30) mmol/L Anion Gap 7 mmol/L BUN 11 (7-17) mg/dL Creatinine 0.77 (0.52-1.04) mg/dL Est GFR (CKD-EPI)AfAm >90 (>60 ml/min/1.73 sqM) Est GFR (CKD-EPI)NonAf >90 (>60 ml/min/1.73 sqM) Glucose 98 (74-99) mg/dL Calcium 9.1 (8.4-10.2) mg/dL Total Bilirubin 0.6 (0.2-1.3) mg/dL AST 24 (14-36) U/L ALT 20 (4-34) U/L Alkaline Phosphatase 75 (38-126) U/L Total Protein 6.7 (6.3-8.2) g/dL Albumin 4.0 (3.5-5.0) g/dL Amylase 72 (30-110) U/L Lipase 78 (23-300) U/L Urine Color Urine Appearance (Clear) Urine pH (5.0-8.0) Ur Specific [place] (1.001-1.035) Urine Protein (Negative) Urine Glucose (UA) (Negative) Urine Ketones (Negative) Urine Blood (Negative) Urine Nitrite (Negative) Urine Bilirubin (Negative) Urine Urobilinogen (<2.0) mg/dL Ur Leukocyte Esterase (Negative) Urine RBC (0-5) /hpf Urine WBC (0-5) /hpf Ur Squamous Epith Cells (0-4) /hpf Amorphous Sediment (None) /hpf Urine Mucus (None) /hpf Urine HCG, Qual (Not Detectd) Disposition Clinical Impression: Rash, Herpes zoster, Hematuria Disposition: HOME SELF-CARE Condition: Good Instructions (If sedation given, give patient instructions): Shingles (ED) Additional Instructions: Please use medication as discussed. Please follow-up with family doctor in the next 2 days. Please return to emergency room if the symptoms increase or worsen or for any other concerns. Prescriptions: valACYclovir HCL [Valtrex] 1,000 mg PO Q8HR 7 Days #21 tab Is patient prescribed a controlled substance at d/c from ED?: No Referrals: Beto Hernandez MD [Primary Care Provider] - 1-2 days Time of Disposition: 17:14
[2019-07-24 17:20] VITALS: BP 111/67; PULSE 83; RESP 18; TEMP 98.7
== END 2019-07-24 17:32 | disposition home or self-care (01) ==
LOC: EC 14:40
DX: B02.9 Zoster without complications (principal); R31.9 Hematuria, unspecified; J44.9 Chronic obstructive pulmonary disease, unspecified; E78.5 Hyperlipidemia, unspecified; F17.200 Nicotine dependence, unspecified, uncomplicated; Z79.899 Other long term (current) drug therapy; Z91.048 Other nonmedicinal substance allergy status; Z91.041 Radiographic dye allergy status; Z91.040 Latex allergy status; Z88.5 Allergy status to narcotic agent; Z88.8 Allergy status to other drugs, medicaments and biological substances
CPT/HCPCS: 36415; 80053; 82150; 83690; 85025; 81001; 81025; 74177; 99284; 96374; 96375 ×3; 96376; J1200; J2930; J1170; Q9967

== ENCOUNTER 2019-07-25 21:34 | Emergency (ER) | payer OTHER ==
[2019-07-25 21:40] VITALS: BP 126/64; TEMP 97.3
[2019-07-25] MEDS ORDERED: HYDROmorphone 0.5 MG/0.5 ML SYRINGE IM STA (22:09)
--- NOTE | 2019-07-25 22:47 | ED ---
Skin/Abscess/FB HPI - General Chief complaint: Skin/Abscess/Foreign Body Stated complaint: Shingles Time Seen by Provider: 07/25/19 21:43 Source: patient Mode of arrival: ambulatory Limitations: no limitations - History of Present Illness Initial comments: 48yo female presenting for pain of the skin, patient states that she was diagnosed yesterday with hingles she states she has a rash over the anterior abdomen that stretches along towards her back. Patient states it is a burning sharp shooting tingling sensation. Patient states he pain keeps her up at night. Patient denies any chest pain or shortness of breath, nausea vomiting, diarrhea, headache vision changes, eye redness. She states she woke up in the middle of the night itching the area. Patient denies spread of the redness. Denies fevers, neck stiffness. Patient denies any new symptoms. Patient states she has been complaint with her valtrex. Patient denies any other complaints. Upon arrival patient appears well nontoxic. - Related Data Home Medications Medication Instructions Recorded Confirmed HYDROcodone/APAP 10-325MG [[place] 1 tab PO QID PRN 02/16/14 04/12/19 10-325] Levalbuterol Hfa Inhaler [Xopenex 2 puff INHALATION RT-QID PRN 12/25/15 04/12/19 Hfa Inhaler] Levalbuterol Nebulized [Xopenex 1.25 mg INHALATION RT-Q4H PRN 09/10/18 04/12/19 Nebulized] Ibuprofen [Motrin] 800 mg PO Q8H PRN 02/28/19 04/12/19 diphenhydrAMINE [Benadryl] 50 mg PO HS 02/28/19 04/12/19 Atorvastatin Calcium [Lipitor] 20 mg PO HS 04/12/19 04/12/19 Previous Rx's Medication Instructions Recorded valACYclovir HCL [Valtrex] 1,000 mg PO Q8HR 7 Days #21 tab 07/24/19 Allergies Allergy/AdvReac Type Severity Reaction Status Date / Time adhesive Allergy Unknown Rash/Hives Verified 07/25/19 21:40 Iodinated Contrast Media Allergy Anaphylaxis Verified 07/25/19 21:40 [Iodinated Contrast Media - IV Dye] latex Allergy Rash/Hives Verified 07/25/19 21:40 morphine Allergy Rash/Hives Verified 07/25/19 21:40 albuterol AdvReac Rapid Verified 07/25/19 21:40 Heart Rate Review of Systems ROS Statement: Those systems with pertinent positive or pertinent negative responses have been documented in the HPI. ROS Other: All systems not noted in ROS Statement are negative. Past Medical History Past Medical History: COPD, Fibromyalgia, Hyperlipidemia, Osteoarthritis (OA), Pneumonia Additional Past Medical History / Comment(s): Pulmonary htn, absence of R lung pulmonary artery, bronchitis, past home oxygen use, chronic cervical and low back pain, palpitations, insomnia, shingles History of Any Multi-Drug Resistant Organisms: None Reported Past Surgical History: Section, Cholecystectomy, EPS, Heart Catheterization, Hysterectomy, Orthopedic Surgery, Tubal Ligation Additional Past Surgical History / Comment(s): Cervical surgery with hardware, R knee arthroscopies x 2, pain clinic procedures, colonoscopy Past Anesthesia/Blood Transfusion Reactions: No Reported Reaction, Motion Sickness Past Psychological History: Anxiety, Depression, Panic Disorder, PTSD Smoking Status: Current every day smoker Past Alcohol Use History: None Reported Past Drug Use History: None Reported - Past Family History Mother Family Medical History: Thyroid Disorder Father Family Medical History: Congestive Heart Failure (CHF) Additional Family Medical History / Comment(s): crohns Brother(s) Family Medical History: Diabetes Mellitus Daughter(s) Additional Family Medical History / Comment(s): hole in heart repaired Son(s) Additional Family Medical History / Comment(s): from aortic dissection at the age of 17 yrs. General Exam - General Exam Comments Initial Comments: General: The patient is awake and alert, in no distress, and does not appear acutely ill. Eye: +3 mm pupils are equal, round and reactive to light, extra-ocular movements are intact. No nystagmus. There is normal conjunctiva bilaterally. No signs of icterus. Ears, nose, mouth and throat: There are moist mucous membranes and no oral lesions. Neck: The neck is supple, there is no tenderness or JVD. Cardiovascular: There is a regular rate and rhythm. No murmur, rub or gallop is appreciated. Respiratory: Lungs are clear to auscultation, respirations are non-labored, breath sounds are equal. No wheezes, stridor, rales, or rhonchi. Gastrointestinal: Soft, non-distended, abdomen to palation of skin along area of dermtome connected to the vesicular lesions. Remaining non tender and without abdomen without masses or organomegaly noted. There is no rebound or guarding present. Musculoskeletal: Normal ROM, no tenderness. Strength 5/5. Sensation intact. Pulses equal bilaterally 2+. Neurological: A&O x 3. CN II-XII intact grossly, There are no obvious motor or sensory deficits. Coordination appears grossly intact. Speech is normal. Skin: Skin is warm and dry. Cluster of vesicular lesions over right side of abdomen, tender to touch along skin of same dermatone. Psychiatric: Cooperative, appropriate mood & affect, normal judgment. Limitations: no limitations Course Vital Signs 07/25/19 07/25/19 21:38 23:05 Temperature 97.3 F L Pulse Rate 113 H 115 H Respiratory 22 18 Rate Blood Pressure 126/64 O2 Sat by Pulse 97 96 Oximetry Medical Decision Making - Medical Decision Making 48yo female presenting today for cc of rash pain. Pain in side of abdomen with rash. Exam no changes from day prior patient states pain persists no increase, dermatome T10 area. Pt taking valtrex. Patient denies neck pain, headache, eye pain, spread of lesions. Patient states it is very painful to touch the skin, burning. Patient has no other complaints. Discussed case wtih Dr. Jarvis, patient requesting discharge. Patient discharged after receiving IM analgesics. Disposition Clinical Impression: Shingles Disposition: HOME SELF-CARE Condition: Good Instructions (If sedation given, give patient instructions): Shingles (ED), Shingles Vaccine (ED) Additional Instructions: Please use medication as discussed. Please follow-up with family doctor in the next 2 days. Please return to emergency room if the symptoms increase or worsen or for any other concerns. Is patient prescribed a controlled substance at d/c from ED?: No Referrals: Beto Hernandez MD [Primary Care Provider] - 1-2 days Time of Disposition: 22:47
[2019-07-25 23:06] VITALS: PULSE 115; RESP 18
== END 2019-07-25 23:07 | disposition home or self-care (01) ==
LOC: EC 21:34
DX: B02.9 Zoster without complications (principal); J44.9 Chronic obstructive pulmonary disease, unspecified; E78.5 Hyperlipidemia, unspecified; M19.90 Unspecified osteoarthritis, unspecified site; F17.200 Nicotine dependence, unspecified, uncomplicated; Z88.5 Allergy status to narcotic agent; Z88.8 Allergy status to other drugs, medicaments and biological substances; Z91.040 Latex allergy status; Z91.041 Radiographic dye allergy status; Z91.048 Other nonmedicinal substance allergy status; Z79.1 Long term (current) use of non-steroidal anti-inflammatories (NSAID); Z79.899 Other long term (current) drug therapy; Z96.698 Presence of other orthopedic joint implants
CPT/HCPCS: 99283; 96372; J1170

== ENCOUNTER 2019-07-26 20:34 | Emergency (ER) | payer OTHER ==
[2019-07-26 20:45] VITALS: BP 112/68; PULSE 118; RESP 18; TEMP 97.7
[2019-07-26] MEDS ORDERED: HYDROmorphone 1 MG/ML 1 ML SYRINGE IM STA (21:09)
[2019-07-26] MEDS ORDERED: LIDOCAINE 5% PATCH TOPICAL STA (21:11)
[2019-07-26] MEDS ORDERED: predniSONE 50 MG TAB PO STA (21:12)
[2019-07-26] MEDS ORDERED: GABAPENTIN 300 MG CAP PO STA (21:13)
--- NOTE | 2019-07-26 21:17 | ED ---
General Adult HPI - General Chief complaint: Recheck/Abnormal Lab/Rx Stated complaint: sent by sheldon/shingles Time Seen by Provider: 07/26/19 20:53 Source: patient, RN notes reviewed, old records reviewed Mode of arrival: ambulatory Limitations: no limitations - History of Present Illness Initial comments: 48 rolled female presents emergency department today for pain management related to shingles. Patient was sinus with shingles over the right T10 dermatome yesterday. Patient was placed on Valtrex. Patient was called today in follow- up and reports no pain. Distal to come back to the ER for further evaluation and pain management. Patient reports that she's had no other new areas lesions. She denies any fever. She reports that the skin is very sensitive to touch. - Related Data Home Medications Medication Instructions Recorded Confirmed HYDROcodone/APAP 10-325MG [[place] 1 tab PO QID PRN 02/16/14 04/12/19 10-325] Levalbuterol Hfa Inhaler [Xopenex 2 puff INHALATION RT-QID PRN 12/25/15 04/12/19 Hfa Inhaler] Levalbuterol Nebulized [Xopenex 1.25 mg INHALATION RT-Q4H PRN 09/10/18 04/12/19 Nebulized] Ibuprofen [Motrin] 800 mg PO Q8H PRN 02/28/19 04/12/19 diphenhydrAMINE [Benadryl] 50 mg PO HS 02/28/19 04/12/19 Atorvastatin Calcium [Lipitor] 20 mg PO HS 04/12/19 04/12/19 Previous Rx's Medication Instructions Recorded valACYclovir HCL [Valtrex] 1,000 mg PO Q8HR 7 Days #21 tab 07/24/19 Gabapentin [Neurontin] 300 mg PO DIRECTED #12 cap 07/26/19 Lidocaine 5% Patch [Lidoderm 5% 1 patch TOPICAL DAILY #20 patch 07/26/19 Patch] methylPREDNISolone Dose Pack 4 mg PO DIRECTED #21 package 07/26/19 [Medrol Dose Pack] Allergies Allergy/AdvReac Type Severity Reaction Status Date / Time adhesive Allergy Unknown Rash/Hives Verified 07/26/19 20:42 Iodinated Contrast Media Allergy Anaphylaxis Verified 07/26/19 20:42 [Iodinated Contrast Media - IV Dye] latex Allergy Rash/Hives Verified 07/26/19 20:42 morphine Allergy Rash/Hives Verified 07/26/19 20:42 albuterol AdvReac Rapid Verified 07/26/19 20:42 Heart Rate Review of Systems ROS Statement: Those systems with pertinent positive or pertinent negative responses have been documented in the HPI. ROS Other: All systems not noted in ROS Statement are negative. Past Medical History Past Medical History: COPD, Fibromyalgia, Hyperlipidemia, Osteoarthritis (OA), Pneumonia Additional Past Medical History / Comment(s): Pulmonary htn, absence of R lung pulmonary artery, bronchitis, past home oxygen use, chronic cervical and low back pain, palpitations, insomnia, shingles History of Any Multi-Drug Resistant Organisms: None Reported Past Surgical History: Section, Cholecystectomy, EPS, Heart Catheterization, Hysterectomy, Orthopedic Surgery, Tubal Ligation Additional Past Surgical History / Comment(s): Cervical surgery with hardware, R knee arthroscopies x 2, pain clinic procedures, colonoscopy Past Anesthesia/Blood Transfusion Reactions: No Reported Reaction, Motion S ickness Past Psychological History: Anxiety, Depression, Panic Disorder, PTSD Smoking Status: Current every day smoker Past Alcohol Use History: None Reported Past Drug Use History: None Reported - Past Family History Mother Family Medical History: Thyroid Disorder Father Family Medical History: Congestive Heart Failure (CHF) Additional Family Medical History / Comment(s): crohns Brother(s) Family Medical History: Diabetes Mellitus Daughter(s) Additional Family Medical History / Comment(s): hole in heart repaired Son(s) Additional Family Medical History / Comment(s): from aortic dissection at the age of 17 yrs. General Exam - General Exam Comments Initial Comments: 48 [place]. Alert and oriented. No distress. Limitations: no limitations General appearance: alert, in no apparent distress Head exam: Present: atraumatic, normocephalic, normal inspection Eye exam: Present: normal appearance, PERRL, EOMI. Absent: scleral icterus, conjunctival injection, periorbital swelling ENT exam: Present: normal exam, mucous membranes moist Neck exam: Present: normal inspection. Absent: tenderness, meningismus, lymphadenopathy Respiratory exam: Present: normal lung sounds bilaterally. Absent: respiratory distress, wheezes, rales, rhonchi, stridor Cardiovascular Exam: Present: regular rate, normal rhythm, normal heart sounds. Absent: systolic murmur, diastolic murmur, rubs, gallop, clicks GI/Abdominal exam: Present: soft, normal bowel sounds, other (Patient has evidence of chronic leg erythematous blister vesicles over the T10 dermatome over the right side of the abdomen.). Absent: distended, tenderness, guarding, rebound, rigid Extremities exam: Present: normal inspection, full ROM, normal capillary refill. Absent: tenderness, pedal edema, joint swelling, calf tenderness Back exam: Present: normal inspection Neurological exam: Present: alert, oriented X3, CN II-XII intact Psychiatric exam: Present: normal affect, normal mood Skin exam: Present: rash (Vesicles Erythematous Lesions over the R T10 Dermatome.) Course Vital Signs 07/26/19 20:42 Temperature 97.7 F Pulse Rate 118 H Respiratory 18 Rate Blood Pressure 112/68 O2 Sat by Pulse 95 Oximetry Medical Decision Making - Medical Decision Making 48 rolled female presents for pain management related to shingles. She is evidence of vesicular Patient over the T10 dermatome on the right side. She is very sensitive skin to touch. Patient was given IM. Medication, lidocaine patch and will be started on gabapentin for her neuralgia. Discussed the follow-up she does have an appointment tomorrow. Disposition Clinical Impression: Herpes zoster Disposition: HOME SELF-CARE Condition: Good Instructions (If sedation given, give patient instructions): Shingles (ED) Additional Instructions: Take medications as prescribed. Follow-up with your primary care physician tomorrow. Return to the ED if any alarming signs or symptoms occur. Prescriptions: Lidocaine 5% Patch [Lidoderm 5% Patch] 1 patch TOPICAL DAILY #20 patch methylPREDNISolone Dose Pack [Medrol Dose Pack] 4 mg PO DIRECTED #21 package Gabapentin [Neurontin] 300 mg PO DIRECTED #12 cap Is patient prescribed a controlled substance at d/c from ED?: No Referrals: Beto Hernandez MD [Primary Care Provider] - 1-2 days Time of Disposition: 21:13
== END 2019-07-26 21:21 | disposition home or self-care (01) ==
LOC: EC 20:34
DX: B02.9 Zoster without complications (principal); J44.9 Chronic obstructive pulmonary disease, unspecified; E78.5 Hyperlipidemia, unspecified; F17.200 Nicotine dependence, unspecified, uncomplicated; Z79.51 Long term (current) use of inhaled steroids; Z79.899 Other long term (current) drug therapy; Z91.048 Other nonmedicinal substance allergy status; Z91.041 Radiographic dye allergy status; Z91.040 Latex allergy status; Z88.5 Allergy status to narcotic agent; Z88.8 Allergy status to other drugs, medicaments and biological substances
CPT/HCPCS: 99283; 96372; J1170; J7512

== ENCOUNTER → 2020-11-06 | Outpatient (CLI) | payer OTHER ==
--- NOTE | 2020-11-07 08:02 | US ---
EXAMINATION TYPE: US carotid duplex BILAT DATE OF EXAM: 11/06/2020 COMPARISON: NONE CLINICAL HISTORY: R55 Syncope and collapse. Syncope EXAM MEASUREMENTS: RIGHT: Peak Systolic Velocity (PSV) cm/sec ----- Right CCA: 100.5 ----- Right ICA: 65.2 ----- Right ECA: 94.2 ICA/CCA ratio: 1.1 RIGHT: End Diastole cm/sec ----- Right CCA: 36.1 ----- Right ICA: 51.3 ----- Right ECA: 18.4 LEFT: Peak Systolic Velocity (PSV) cm/sec ----- Left CCA: 99.3 ----- Left ICA: 117.0 ----- Left ECA: 99.3 ICA/CCA ratio: 1.2 LEFT: End Diastole cm/sec ----- Left CCA: 36.1 ----- Left ICA: 55.1 ----- Left ECA: 18.4 VERTEBRALS (direction of flow): Right Vertebral: Antegrade Left Vertebral: Antegrade Rhythm: Normal No significant stenosis seen IMPRESSION: No sonographic evidence for hemodynamically significant stenosis in either carotid artery. Criteria for Assigning % of Stenosis / Diameter reduction (Estimation based on the indirect measurements of the internal carotid artery velocities (ICA PSV). 1. Normal (no stenosis)=ICA PSV < 125 cm/s: ratio < 2.0: ICA EDV<40 cm/s. 2. Less than 50% stenosis=ICA PSV < 125 cm/s: ratio < 2.0: ICA EDV<40 cm/s. 3. 50 to 69% stenosis=ICA PSV of 125 to 230 cm/s: ration 2.0 ? 4.0: ICA EDV 40-100 cm/s. 4. Greater than 70% stenosis to near occlusion= ICA PSV > 230 cm/s: ratio > 4.0: ICA EDV > 100 cm/s. 5. Near occlusion= ICA PSV velocities may be low or undetectable: variable ratio and ICA EDV. 6. Total occlusion=unable to detect flow.
== END | disposition home or self-care (01) ==
LOC: RADUSWWP 16:12
PROVIDERS: ATTEND Family Medicine
DX: R55 Syncope and collapse (principal)
CPT/HCPCS: 93880

== ENCOUNTER → 2020-11-07 | Outpatient (CLI) | payer OTHER ==
--- NOTE | 2020-11-08 08:00 | ECHOF ---
Referral Reason:R55 Syncope and collapse MEASUREMENTS -------- HEIGHT: 167.6 cm WEIGHT: 64.4 kg BP: RVIDd: 2.7 cm (< 3.3) IVSd: 1.0 cm (0.6 - 1.1) LVIDd: 3.6 cm (3.9 - 5.3) LVPWd: 1.0 cm (0.6 - 1.1) IVSs: 1.3 cm LVIDs: 2.2 cm LVPWs: 1.3 cm LA Diam: 3.0 cm (2.7 - 3.8) LAESV Index (A-L): 19.90 ml/m Ao Diam: 2.8 cm (2.0 - 3.7) AV Cusp: 1.7 cm (1.5 - 2.6) MV EXCURSION: 18.525 mm (> 18.000) MV EF SLOPE: 108 mm/s (70 - 150) EPSS: 0.5 cm MV E Bjorn: 0.74 m/s MV DecT: 352 ms MV A Bjorn: 0.76 m/s MV E/A Ratio: 0.99 FINDINGS -------- Sinus rhythm. This was a technically adequate study. The left ventricular size is normal. Left ventricular wall thickness is normal. Overall left vent ricular systolic function is normal with, an EF between 60 - 65 %. The right ventricle is normal in size. Normal LA size by volume 22+/-6 ml/m2. The right atrium is normal in size. Interatrial and interventricular septum intact. The aortic valve is trileaflet and appears structurally normal. The mitral valve is normal. The tricuspid valve appears structurally normal. Unable to estimate RVSP due to inadequate TR jet s pectral doppler profile. There is no pulmonic regurgitation present. The aortic root size is normal. Normal inferior vena cava with normal inspiratory collapse consistent with estimated right atrial pre ssure of 5 mmHg. There is no pericardial effusion. CONCLUSIONS -------- 1. The left ventricular size is normal. 2. Left ventricular wall thickness is normal. 3. Overall left ventricular systolic function is normal with, an EF between 60 - 65 %. 4. There is no pericardial effusion. ORAL AND MAXILLOFACIAL PATHOLOGIST: Tricai Frye [facility]
--- NOTE | 2020-11-14 11:34 | HM ---
24 Hour Holter monitor note: Patient wore a Holter monitor for 7 hrs from 11/07/2020 1 PM until 9 PM. Findings: Patient's baseline heart rate was normal sinus rhythm. There were no signficant atrial fibrillation, atrial flutter, or ventricular tachycardia episodes. There were no significant pauses greater than 2 seconds. Patient's minimum heart rate was 78. Patient's maximum heart rate was 128. Patient's average heart rate was 98. No ventricular ectopy or SVT noted. Rare PACs. Conclusions: Essentially normal Holter monitor with only sinus rhythm, sinus tachycardia and rare PACs. Monitor only worn for 7 hours secondary to reaction of adhesive. MTDD
== END | disposition home or self-care (01) ==
LOC: RADECHMAIN 12:41
PROVIDERS: ATTEND Family Medicine
DX: R55 Syncope and collapse (principal)
CPT/HCPCS: 93225; 93226; 93306

== ENCOUNTER → 2021-01-03 | Outpatient (CLI) | payer OTHER ==
--- NOTE | 2021-01-04 10:06 | XR ---
EXAMINATION TYPE: XR chest 2V DATE OF EXAM: 01/03/2021 COMPARISON: 04/12/2019 HISTORY: 50-year-old female R2 2.2 TECHNIQUE: Frontal and lateral views FINDINGS: Heart normal size. Aorta and pulmonary vasculature within normal limits. Mild interstitial prominence is unchanged. Mild peribronchial cuffing. Strandy scattered areas of atelectasis. ACDF hardware part ially visualized. No consolidation or pleural effusion. IMPRESSION: Correlate for bronchitis or chronic asthma. Possible underlying COPD. No acute osseous abnormality se en.
== END | disposition home or self-care (01) ==
LOC: RADXRMAIN 16:27
PROVIDERS: ATTEND Nurse Practitioner
DX: R22.2 Localized swelling, mass and lump, trunk (principal)
CPT/HCPCS: 71046

== ENCOUNTER → 2021-01-16 | Outpatient (CLI) | payer OTHER | END | disposition home or self-care (01) | LOC: LABWHC1 14:10 | PROVIDERS: ATTEND Psychiatry & Neurology Pain Medicine | DX: Z51.81 Encounter for therapeutic drug level monitoring (principal); M79.7 Fibromyalgia; G13.0 Paraneoplastic neuromyopathy and neuropathy | CPT/HCPCS: 36415; 83519; 85652; 86140; 86256; 93005 ==

== ENCOUNTER → 2022-05-02 | Outpatient (CLI) | payer OTHER ==
[2022-05-02 13:10] VITALS: BP 123/63; PULSE 73; RESP 18; TEMP 98
--- NOTE | 2022-05-02 14:33 | P.PAINPG ---
PQRS Measure Charge Sheet Comment: HISTORY OF PRESENT ILLNESS: 51 yr old female as a referral from [facility], [place], operated by [facility] presents today w severe and chronic neck pain x years secondary to for evaluation. Pt states pain level is at 8 /10 in intensity, constant, localized in the mid cervical spine, burning in character w shooting pain towards the BL shoulders, LUE and L hand. Pain is provoked by lifting, pulling. Pain is alleviated by medications ([place], Ibu), PT x 6 wks in Nov 2021, chiropractic treatment twice weekly, heat, repositioning and rest. PMH: COPD, Fibromyalgia, Hyperlipidemia, OA, Pulmonary HTN, MDD/ Anxiety/ PTSD PSH: Absent R Lung Pulmonary Artery, Section, Cholecystectomy, EPS, Heart Catheterization, Hysterectomy, Cervical Fusion w Hardware, Tubal Ligation, R Knee Arthroscopy x2, Colonoscopy SH: Daily tobacco use, No ETOH abuse, No illicit drug use FH: Mo- CHF/ Crohn's Disease. Bro- DM. Daughter- Congenital Heart Defect. Son- Aortic Dissection/ at age 17. All: See list Meds: See list REVIEW OF ORGAN SYSTEMS: CONSTITUTIONAL: No fevers or chills. No recent weight loss. NEUROLOGICAL: + numbness and tingling along the distal extremities. No seizure disorders or headaches. MUSCULOSKELETAL: + pain PSYCHIATRIC: Denies current depression or suicidal thoughts. Physical Examinations : Constitutional : Cooperative , not in acute distress . Neurologic : Cranial nerve II to XII intact. No focal neurological deficits. Psychiatric : alert & oriented x 3. Matching mood & appropriate affect. Judgment & insight intact. Musculoskeletal : Cervical Spine Motor strength in the deltoid and biceps: Normal right side. Normal Left side Motor strength biceps and the wrist extensors: Normal right side . Normal left side Motor strength in the triceps muscle: Normal right side. Normal left side Deep tendon reflexes: Normal at the biceps. Normal at Brachioradialis. Normal at triceps Vertebral body tenderness to deep palpation over C6 Cervical facet loading test: positive bilaterally Spurling test: positive bilaterally Neck distraction test: positive bilaterally Judy sign: positive bilaterally Lumbar spine Motor strength lower extremities ,thigh and legs 5/5 Right side , 5/5 Left side Deep tendon reflexes : Normal Knee Jerk. Normal Ankle Jerk Vertebral body tenderness over Lumbar facet Loading Test: positive Right / positive Left Range of motion of the lumbar spine Flexion 30 degrees, extension 10 degrees Straight Leg Raise test: Left/ Right positive at degree Venita test: positive right / positive left. Severe tenderness over the Sacroiliac joint on the Right / Left sides Gaenslen test: positive bilaterally Seated flexion test: positive bilaterally. Sacral spine : Severe tenderness over the Sacroiliac joint: right side / left side Range of motion: Flexion of the lumbar spine <60 degrees Range of motion: Extension of the lumbar spine <20 degrees Gaenslen's Test positive Lb's Test positive Venita test: positive right side / left side Thigh Thrust Test Sacral Thrust Test Imaging: MRI without contrast of the cervical spine from 06/26/21 reviewed Assessment/ Plan : Cervical spondylosis, Cervical DDD Recommendation of ZEKE C6-C7. May need a series of injections, up to 3 within a 6 mo period, for optimal pain relief. Risks, benefits of procedure discussed and patient verbalized understanding. Admits to aspirin or anti- coagulant use or medical history of diabetes. Protocol for discontinuation/ continuation of medications dionna procedure discussed. All questions answered. I have spent greater than 30 minutes on patient care today. Dr Manning was available by phone for the evaluation of this patient. The time was used to review the medical records including relevant urine studies and Prescription history (MAPs), review of the available imaging, evaluation and examination of the patient, coordination of care with the medical staff and if applicable referring physicians, as well as creation of the medical record - Pain Location Neck Non-Pharmacological Interventions: Chiropractic Treatment, Heat, Massage, Physical Therapy Pharmacological Interventions: PRN Medication, Scheduled Medication PQRS Narrative: Smoking Status Current every day smoker Home Medications: Ambulatory Orders HYDROcodone/APAP 10-325MG [[place] 10-325] 1 tab PO QID PRN 02/16/14 Levalbuterol Hfa Inhaler [Xopenex Hfa Inhaler] 2 puff INHALATION RT-QID PRN 12/25/15 Levalbuterol Nebulized [Xopenex Nebulized] 1.25 mg INHALATION RT-Q4H PRN 09/10/18 Ibuprofen [Motrin] 800 mg PO Q8H PRN 02/28/19 diphenhydrAMINE [Benadryl] 50 mg PO HS 02/28/19 Atorvastatin Calcium [Lipitor] 20 mg PO HS 04/12/19 valACYclovir HCL [Valtrex] 1,000 mg PO Q8HR 7 Days #21 tab 07/24/19 Gabapentin [Neurontin] 300 mg PO DIRECTED #12 cap 07/26/19 Lidocaine 5% Patch [Lidoderm 5% Patch] 1 patch TOPICAL DAILY #20 patch 07/26/19 methylPREDNISolone Dose Pack [Medrol Dose Pack] 4 mg PO DIRECTED #21 package 07/26/19 Controlled Substance Measures - Controlled Substance Measures Is patient prescribed a controlled substance at discharge?: No
== END ==
LOC: PNWHC3 12:18
PROVIDERS: ATTEND Specialist
DX: M47.812 Spondylosis without myelopathy or radiculopathy, cervical region (principal); M50.30 Other cervical disc degeneration, unspecified cervical region; Z91.048 Other nonmedicinal substance allergy status; Z88.5 Allergy status to narcotic agent; Z91.040 Latex allergy status; Z88.8 Allergy status to other drugs, medicaments and biological substances; Z91.041 Radiographic dye allergy status; F17.200 Nicotine dependence, unspecified, uncomplicated; J44.9 Chronic obstructive pulmonary disease, unspecified; M19.90 Unspecified osteoarthritis, unspecified site; I27.20 Pulmonary hypertension, unspecified
CPT/HCPCS: 99211

== ENCOUNTER 2022-05-09 11:32 | Emergency (ER) | payer OTHER ==
[2022-05-09 12:37] LABS: Basophils # (A) 0.1 k/uL (0-0.2); Basophils % (A) 1 %; Eosinophils # (A) 0.6 k/uL (0-0.7); Eosinophils % (A) 6 %; HCT 44.7 % (34.0-46.0); HGB 14.3 gm/dL (11.4-16.0); Lymphocytes # (A) 3.8 k/uL (1.0-4.8); Lymphocytes % (A) 37 %; MCH 29.8 pg (25.0-35.0); MCHC 32.1 g/dL (31.0-37.0); MCV 92.8 fL (80.0-100.0); Monocytes # (A) 0.8 k/uL (0-1.0); Monocytes % (A) 8 %; Neutrophils # (A) 4.8 k/uL (1.3-7.7); Neutrophils % (A) 47 %; Platelet Count 448 k/uL (150-450); RBC 4.82 m/uL (3.80-5.40); RDW 14.1 % (11.5-15.5); WBC 10.3 k/uL (3.8-10.6)
[2022-05-09] MEDS ORDERED: KETOROLAC 15 MG/ML 1 ML VIAL IVP STA (12:44)
--- NOTE | 2022-05-09 12:46 | ED ---
Chest Pain HPI - General Chief Complaint: Chest Pain Stated Complaint: chest pain Time Seen by Provider: 05/09/22 12:20 Source: patient Mode of arrival: ambulatory Limitations: no limitations - History of Present Illness Initial Comments: 51-year-old female history of COPD who is a smoker also history of absence of the right pulmonary artery history of post medic stress disorder depression and anxiety who presents with four-day complaint of right-sided posterior chest pain is sharp in nature and radiates toward the left side. She also states she's had shortness of breath no overt fevers chills sweats. She was seen in outpatient clinic recently had a negative x-ray. She still has similar complaints. MD Complaint: chest pain, other - Related Data Home Medications Medication Instructions Recorded Confirmed HYDROcodone/APAP 10-325MG [[place] 1 tab PO QID PRN 02/16/14 05/09/22 10-325] diphenhydrAMINE [Benadryl] 50 mg PO HS 05/09/22 05/09/22 Previous Rx's Medication Instructions Recorded Doxycycline [Vibramycin] 100 mg PO BID 1 Days #20 capsule 05/09/22 Ipratropium [place] [Atrovent Hfa] 2 puff INHALATION QID #12.9 gm 05/09/22 predniSONE [Deltasone] 20 mg PO BID #10 tab 05/09/22 Allergies Allergy/AdvReac Type Severity Reaction Status Date / Time adhesive Allergy Unknown Rash/Hives Verified 05/09/22 13:21 Iodinated Contrast Media Allergy Anaphylaxis Verified 05/09/22 13:21 [Iodinated Contrast Media - IV Dye] latex Allergy Rash/Hives Verified 05/09/22 13:21 morphine Allergy Rash/Hives Verified 05/09/22 13:21 albuterol AdvReac Rapid Verified 05/09/22 13:21 Heart Rate Review of Systems ROS Statement: Those systems with pertinent positive or pertinent negative responses have been documented in the HPI. ROS Other: All systems not noted in ROS Statement are negative. EKG Findings - EKG Results: EKG: interpreted by RAYSA, sinus rhythm (EKG interpreted by fl sinus rhythm of 80 OK interval 145 QRS duration 82 QT since QTC 35/421 this is a normal-appearing EKG.) Past Medical History Past Medical History: COPD, Fibromyalgia, Hyperlipidemia, Osteoarthritis (OA), Pneumonia Additional Past Medical History / Comment(s): Pulmonary htn, absence of R lung pulmonary artery, bronchitis, past home oxygen use, chronic cervical and low back pain, palpitations, insomnia, shingles History of Any Multi-Drug Resistant Organisms: None Reported Past Surgical History: Section, Cholecystectomy, EPS, Heart Catheterization, Hysterectomy, Orthopedic Surgery, Tubal Ligation Additional Past Surgical History / Comment(s): Cervical surgery with hardware, R knee arthroscopies x 2, pain clinic procedures, colonoscopy Past Anesthesia/Blood Transfusion Reactions: No Reported Reaction, Motion Sickness Past Psychological History: Anxiety, Depression, Panic Disorder, PTSD Smoking Status: Current every day smoker Past Alcohol Use History: Occasional Past Drug Use History: None Reported - Past Family History Mother Family Medical History: Thyroid Disorder Father Family Medical History: Congestive Heart Failure (CHF) Additional Family Medical History / Comment(s): crohns Brother(s) Family Medical History: Diabetes Mellitus Daughter(s) Additional Family Medical History / Comment(s): hole in heart repaired Son(s) Additional Family Medical History / Comment(s): from aortic dissection at the age of 17 yrs. General Exam - General Exam Comments Initial Comments: This is a well-developed well-nourished awake alert oriented 4 female Limitations: no limitations General appearance: alert, in no apparent distress Head exam: Present: atraumatic, normocephalic, normal inspection Eye exam: Present: normal appearance, PERRL, EOMI. Absent: scleral icterus, conjunctival injection, periorbital swelling ENT exam: Present: normal exam, mucous membranes moist Neck exam: Present: normal inspection, full ROM, other (No stridor JVD or bruits). Absent: tenderness, meningismus, lymphadenopathy Respiratory exam: Present: wheezes, chest wall tenderness (Reproducible tennis palpation along the right costal sternal margin also with a right rhomboid muscular in nature.), decreased breath sounds. Absent: respiratory distress, rales, rhonchi, stridor Cardiovascular Exam: Present: regular rate, normal rhythm, normal heart sounds. Absent: systolic murmur, diastolic murmur, rubs, gallop, clicks GI/Abdominal exam: Present: soft, normal bowel sounds. Absent: distended, tenderness, guarding, rebound, rigid, bruit, pulsatile mass Extremities exam: Present: normal inspection, full ROM, normal capillary refill. Absent: tenderness, pedal edema, joint swelling, calf tenderness Back exam: Present: normal inspection Neurological exam: Present: alert, oriented X3, CN II-XII intact Psychiatric exam: Present: normal affect, normal mood Skin exam: Present: warm, dry, intact, normal color. Absent: rash Course Vital Signs 05/09/22 05/09/22 05/09/22 11:47 13:00 14:26 Temperature 97.9 F 97.7 F Pulse Rate 82 87 Pulse Rate [ 80 Pulse Oximetery ] Respiratory 18 17 Rate Blood Pressure 107/59 125/71 O2 Sat by Pulse 97 96 Oximetry 05/09/22 05/09/22 05/09/22 15:03 15:23 15:30 Temperature Pulse Rate 80 86 90 Pulse Rate [ Pulse Oximetery ] Respiratory 16 Rate Blood Pressure 115/61 O2 Sat by Pulse 95 Oximetry - Reevaluation(s) Reevaluation #1: 05/09/22 16:21 Reevaluation patient reveals increased aeration no wheezing at this time. Patient is feeling somewhat improved she still has chest wall pain however. She describes as burning when she takes a deep breath. There is reproducible component to it. Chest Pain MDM - MDM X-ray was interpreted by me no evidence of acute processes. I did discuss findings with patient he does demonstrate evidence of chest wall pain with bronchitis with bronchospasm. Patient be placed on a course of steroids ipratropium as well as antibiotics. I did recommend Motrin for pain control she does have [place] at home. Disposition Clinical Impression: Bronchitis, Acute bronchospasm, Chest wall syndrome Disposition: HOME SELF-CARE Condition: Good Instructions (If sedation given, give patient instructions): Costochondritis (ED), Bronchospasm (ED), Acute Bronchitis (ED) Prescriptions: Ipratropium [place] [Atrovent Hfa] 2 puff INHALATION QID #12.9 gm predniSONE [Deltasone] 20 mg PO BID #10 tab Doxycycline [Vibramycin] 100 mg PO BID 1 Days #20 capsule Is patient prescribed a controlled substance at d/c from ED?: No Referrals: Beto Hernandez MD [Primary Care Provider] - 1-2 days Decision Date: 05/09/22 Decision Time: 15:50
[2022-05-09 12:47] LABS: Albumin 3.9 g/dL (3.5-5.0); Calcium 8.5 mg/dL (8.4-10.2); Magnesium 1.7 mg/dL (1.6-2.3); Potassium 4.3 mmol/L (3.5-5.1); Total Bilirubin 0.5 mg/dL (0.2-1.3); Total Protein 6.4 g/dL (6.3-8.2)
[2022-05-09 13:00] LABS: INR 0.9 (<1.2); Partial Thromboplastin Time 24.6 sec (22.0-30.0); Prothrombin Time 9.7 sec (9.0-12.0)
[2022-05-09 14:27] VITALS: TEMP 97.7
[2022-05-09] MEDS ORDERED: fentaNYL (PF) 50 MCG/ML 2 ML AMP IV STA (14:45)
[2022-05-09] MEDS ORDERED: IPRATROPIUM 0.5 MG/2.5 ML NEBU INHALATION STA (14:45)
--- NOTE | 2022-05-09 15:02 | XR ---
EXAMINATION TYPE: XR chest 2V DATE OF EXAM: 05/09/2022 COMPARISON: 01/03/2021 HISTORY: 51-year-old female with chest pain TECHNIQUE: PA and lateral views FINDINGS: ACDF hardware. Heart normal size. Aorta and pulmonary vasculature are within normal limits. Mild inte rstitial prominence is unchanged. Strandy atelectasis at the left base. Scattered pleural parenchymal scarring along the periphery of the right lung redemonstrated. No consolidation or pleural effusion. IMPRESSION: COPD and scattered pleural parenchymal scarring. No definite acute process.
[2022-05-09 15:03] VITALS: RESP 16
[2022-05-09 16:37] VITALS: BP 103/59; PULSE 84
== END 2022-05-09 16:37 | disposition home or self-care (01) ==
LOC: EC 11:32
DX: J20.9 Acute bronchitis, unspecified (principal); J44.9 Chronic obstructive pulmonary disease, unspecified; E78.5 Hyperlipidemia, unspecified; M19.90 Unspecified osteoarthritis, unspecified site; F41.9 Anxiety disorder, unspecified; F32.A Depression, unspecified; F17.200 Nicotine dependence, unspecified, uncomplicated; Z79.899 Other long term (current) drug therapy; Z91.09 Other allergy status, other than to drugs and biological substances; Z91.040 Latex allergy status; Z91.041 Radiographic dye allergy status
CPT/HCPCS: 36415; 94640; 93005; 85379; 83880; 80053; 83690; 83735; 84484; 85025; 85610; 85730; 87040; 87502; 87635; 71046; 99285; 96374; 96375; J3010; J1885

== ENCOUNTER 2022-06-04 11:56 | Day surgery (SDC) | payer OTHER ==
[~2022-06-04 11:56] MED LIST changes: +LIDOCAINE 1% (10MG/ML) FOR IV START INTRADERMA PRN
[2022-06-04 12:28] VITALS: RESP 16; TEMP 97.6
[2022-06-04] MEDS ORDERED: LIDOCAINE 1% INJ 10MG/ML (30 ML VIAL-PF) SQ ONE (12:35)
[2022-06-04 12:39] LABS: Glucose,Whole Blood 93 mg/dL (70-110)
[2022-06-04] MEDS ORDERED: MIDAZOLAM 2 MG/2 ML VIAL ONE (12:40)
[2022-06-04] MEDS ORDERED: fentaNYL (PF) 50 MCG/ML 2 ML AMP ONE (12:40)
[2022-06-04] MEDS ORDERED: DEXAMETHASONE SOD PHOSPHATE 10 MG/ML 1 ML VIAL ONE (12:40)
--- NOTE | 2022-06-04 12:55 | P.PCN ---
Date of Procedure: 06/04/22 Procedure(s) Performed: . PROCEDURE 1. Cervical epidural steroid injection under fluoroscopic guidance, C6-7 (fluoroscopy images available in the radiology department ). PREOPERATIVE DIAGNOSIS: 1- Cervical Degenerative Disc Diseases 2- Cervical radiculopathy., 3-cervical spondylosis with cervical Facet arthropathy without myelopathy.4-cervical spinal stenosis POSTOPERATIVE DIAGNOSIS: : 1- Cervical Degenerative Disc Diseases , 2- Cervical radiculopathy. 3-,cervical spondylosis with cervical Facet arthropathy without myelopathy. 4-cervical spinal stenosis ANESTHESIA: moderate sedation, with Versed 2 mg and Fentanyl 100 mcg. Sedation start time : 1242 Sedation end time : 1251 EBL 0 PROCEDURE INDICATION: The patient with neck pain and radiculitis unresponsive to conservative treatment consents for procedure. PROCEDURE DESCRIPTION / TECHNIQUE: The patient was seen and identified in the preoperative area. Risks, benefits, complications, including but not limited to infections ,bleeding , allergic reactions to the medications ,and not complete pain releife, and alternatives were discussed with the patient, the patient agreed to proceed with the procedure and signed the consent. Patient was taken to the OR and time out was completed. The patient was placed in the prone position on the procedure table. A pillow was placed under the patients chest to increase the cervical interlaminar space. The cervical area was prepped and draped in the usual sterile fashion. Vital signs were closely monitored during the procedure. Conscious sedation was used during the procedure to decrease patients anxiety. Using anterior-posterior fluoroscopy, the C6-7 interlaminar space was identified and the skin over this site was marked and then infiltrated with 1% lidocaine subcutaneously. Subsequently, a 20-gauge 3-1/2-inch Tuohy epidural needle was inserted and advanced toward the epidural space by means of the ``hanging-drop technique and guided by AP and lateral fluoroscopy, after negative aspiration for blood and CSF and in the absence of paresthesias. then, mixture containing 20 mg Dexamethasone and 2 ml of preservative-free normal saline injected . Needle was withdrawn intact, skin was cleansed, and bandages were applied. Complications= none. note= Isovue was not injected because patient had ALLERGY to IVP dye. Disposition= patient was placed in supine position and transferred to the recovery room area in stable condition and there was no evidence of upper or lower extremity motor or sensory deficit after the procedure patient was discharged from recovery room after discharge criteria met and home discharge instructions was given by the staff and patient will follow with the pain clinic in 2-4 weeks
[2022-06-04] MEDS ORDERED: IV FLUID CONTINUATION 1,000 ML IV ONE (12:58)
[2022-06-04 13:14] VITALS: BP 100/64; PULSE 83
--- NOTE | 2022-06-04 13:38 | FL ---
Intraoperative/procedural fluoroscopic services were provided for cervical epidural steroid injection . Total fluoroscopy time is 6 seconds with a total of 2 submitted images to PACS. Please see the oper ative note for further details.
== END 2022-06-04 13:35 | disposition home or self-care (01) ==
LOC: ORPAIN 11:56
PROVIDERS: ATTEND Specialist
DX: M50.123 Cervical disc disorder at C6-C7 level with radiculopathy (principal); M47.22 Other spondylosis with radiculopathy, cervical region; M48.02 Spinal stenosis, cervical region; Z88.8 Allergy status to other drugs, medicaments and biological substances; Z91.041 Radiographic dye allergy status
CPT/HCPCS: 62321; J2250; J1100; J2001; J3010

== ENCOUNTER → 2022-06-10 | Outpatient (CLI) | payer OTHER ==
[2022-06-10 13:00] LABS: Basophils # (A) 0.1 k/uL (0-0.2); Basophils % (A) 1 %; Eosinophils # (A) 0.4 k/uL (0-0.7); Eosinophils % (A) 4 %; HCT 46.6 % (34.0-46.0); HGB 15.1 gm/dL (11.4-16.0); Lymphocytes # (A) 3.4 k/uL (1.0-4.8); Lymphocytes % (A) 31 %; MCHC 32.5 g/dL (31.0-37.0); MCV 92.3 fL (80.0-100.0); Mean Platelet Volume 6.8; Monocytes # (A) 0.8 k/uL (0-1.0); Monocytes % (A) 7 %; Neutrophils # (A) 6.2 k/uL (1.3-7.7); Neutrophils % (A) 56 %; Platelet Count 457 k/uL (150-450); RBC 5.05 m/uL (3.80-5.40); RDW 14.1 % (11.5-15.5); WBC 11.2 k/uL (3.8-10.6)
[2022-06-10 13:15] LABS: Potassium 4.3 mmol/L (3.5-5.1)
[2022-06-10 13:16] LABS: ALT 14 U/L (4-34); AST 17 U/L (14-36); African American GFR (CKD) >90 (>60 ml/min/1.73 sqM); Albumin 4.3 g/dL (3.5-5.0); Albumin/Globulin Ratio 1.5; Alkaline Phosphatase 70 U/L (38-126); Anion Gap 6 mmol/L; Blood Urea Nitrogen 11 mg/dL (7-17); Calcium 8.9 mg/dL (8.4-10.2); Carbon Dioxide 29 mmol/L (22-30); Chloride 103 mmol/L (98-107); Globulin 2.8 g/dL; Glucose 95 mg/dL (74-99); Non-African American GFR(CKD) 79 (>60 ml/min/1.73 sqM); Sodium 138 mmol/L (137-145); Total Bilirubin 0.5 mg/dL (0.2-1.3); Total Protein 7.1 g/dL (6.3-8.2)
[2022-06-10 14:40] LABS: RBC Morphology Normal
== END | disposition home or self-care (01) ==
LOC: LABWHC1 11:53
PROVIDERS: ATTEND Family Medicine
DX: D72.829 Elevated white blood cell count, unspecified (principal); R73.9 Hyperglycemia, unspecified
CPT/HCPCS: 36415; 80053; 83036; 85025

== ENCOUNTER → 2022-06-11 | Outpatient (CLI) | payer OTHER ==
--- NOTE | 2022-06-11 17:43 | US ---
EXAMINATION TYPE: US pelvic complete DATE OF EXAM: 06/11/2022 COMPARISON: US & CT CLINICAL HISTORY: R10.2 PELVIC AND PERINEAL PAIN. Pt states LLQ pain x few months, uterus and right o vary surgically removed due to endometriosis TECHNIQUE: Transabdominal (TA). Transabdominal sonographic images of the pelvis were acquired. EXAM MEASUREMENTS: Left Ovary: 2.4 x 1.7 x 2.1 cm 1. Uterus: Surgically absent 2. Endometrium: Surgically absent 3. Right Ovary: Surgically absent 4. Left Ovary: wnl 5. Bilateral Adnexa: wnl 6. Posterior cul-de-sac: wnl Uterus and right ovary are surgically absent. The left ovary demonstrates unremarkable transabdominal appearance. IMPRESSION: 1. Unremarkable transabdominal appearance of the left ovary. 2. Uterus and right ovary are surgically absent.
--- NOTE | 2022-06-13 21:20 | MM ---
Reason for Exam: Screening (asymptomatic). Last mammogram was performed 13 year(s) and 5 month(s) ago. Patient History: Menarche at age 16. First Full-Term at age 25. Hysterectomy at age 34. Maternal grandmother had breast cancer. Maternal aunt had breast cancer, age 44. Risk Values: Amada 5 year model risk: 0.8%. NCI Lifetime model risk: 7.5%. Prior Study Comparison: No prior studies available for comparison. Tissue Density: The breast tissue is heterogeneously dense. This may lower the sensitivity of mammography. Findings: Analyzed By CAD. Asymmetric density both medial and lateral on the right CC view middle depth. These may represent areas of superimposition shadow but further evaluation is recommended. Additional asymmetric density central posterior left CC view. No suspicious microcalcification or other discrete abnormality is seen. Patient's prior study from 2008 is no longer available for comparison. Overall Assessment: Incomplete: need additional imaging evaluation, BI-RAD 0 Management: Special View Mammogram of both breasts. 1. Right to include spot 3-D CC (2 sites) 3-D CC rolled medial, spot 3-D MLO, and 3-D lateral views. Targeted right breast ultrasound is a persisting abnormality. 2. Left to include spot 3-D CC, 3-D CC rolled lateral, spot 3-D MLO, and 3-D lateral views. Targeted left breast ultrasound if any persisting abnormality. [facility] will attempt to contact patient to return for supplemental views and ultrasound if indicated. Electronically signed and approved by: Erinn Blanco M.D. Radiologist
== END | disposition home or self-care (01) ==
LOC: RADMAMWWP 15:58
PROVIDERS: ATTEND Family Medicine
DX: Z12.31 Encounter for screening mammogram for malignant neoplasm of breast (principal); R10.2 Pelvic and perineal pain; Z80.3 Family history of malignant neoplasm of breast; Z90.721 Acquired absence of ovaries, unilateral
CPT/HCPCS: 76856; 77067

== ENCOUNTER → 2022-06-17 | Outpatient (CLI) | payer OTHER ==
[2022-06-18 00:29] LABS: Rheumatoid Factor, Qnt <10 IU/mL (0-15)
[2022-06-18 15:10] LABS: Centromere Antibody <0.2 AI; Centromere Antibody Interp NEGATIVE (NEGATIVE); Cyclic Citrull Pep IgG Unit <0.5 U/mL; Cyclic Citrullinated Pep IgG NEGATIVE (NEGATIVE); JO-1 IgG Antibody <0.2 AI; Scleroderma SC-70 Ab <0.2 AI
[2022-06-19 10:29] LABS: Smooth Muscle Antibody 4 UNITS (<20)
== END | disposition home or self-care (01) ==
LOC: LABWHC1 14:29
PROVIDERS: ATTEND Nurse Practitioner Family
DX: M25.50 Pain in unspecified joint (principal); E55.9 Vitamin D deficiency, unspecified
CPT/HCPCS: 36415; 82306; 83516; 86038; 86140; 86200; 86235; 86431; 93005

== ENCOUNTER → 2022-06-18 | Outpatient (CLI) | payer OTHER ==
--- NOTE | 2022-06-18 15:50 | MM ---
Reason for Exam: Additional evaluation requested from prior study. Last screening mammogram was performed less than 1 month ago. Patient History: Menarche at age 16. First Full-Term at age 25. Hysterectomy at age 34. Maternal grandmother had breast cancer. Maternal aunt had breast cancer, age 44. Risk Values: Amada 5 year model risk: 0.8%. NCI Lifetime model risk: 7.5%. Prior Study Comparison: 01/02/2009 Bilateral Screening Mammogram, [facility]. 06/11/2022 Bilateral MG screening mammo w CAD, [facility]. Tissue Density: The breast tissue is heterogeneously dense. This may lower the sensitivity of mammography. Findings: Analyzed By CAD. Bilateral focal asymmetries persistent compression imaging. There is a focal asymmetry approximately 4.9 cm from the nipple measuring 9 mm slightly medial and CC imaging and slightly superior on LM. In the left breast there is a focal asymmetry 5.9 cm from the nipple in the retroareolar view on CC and slightly superior on LM measuring 8 mm. Overall Assessment: Incomplete: need additional imaging evaluation, BI-RAD 0 Management: Diagnostic Breast Ultrasound of both breasts. A clinical breast exam by your physician is recommended on an annual basis and results should be correlated with mammographic findings. This exam should not preclude additional follow-up of suspicious palpable abnormalities. Results were given to the patient verbally at the time of exam. Electronically signed and approved by: Abhinav Mcintyre DO
--- NOTE | 2022-06-18 16:00 | USB ---
Patient History: Menarche at age 16. First Full-Term at age 25. Hysterectomy at age 34. Maternal grandmother had breast cancer. Maternal aunt had breast cancer, age 44. Risk Values: Amada 5 year model risk: 0.8%. NCI Lifetime model risk: 7.5%. Technique: Method: Targeted. Patient Position: Supine. Prior Study Comparison: 01/02/2009 Bilateral Screening Mammogram, [facility]. 06/11/2022 Bilateral MG screening mammo w CAD, [facility]. Findings: The upper outer quadrant of both breasts and the retroareolar of both breasts were scanned. Grayscale imaging of the bilateral breasts in the areas of concern. * Right breast 10:00 5 cm from the nipple is a anechoic cyst measuring up to 7 mm with posterior acoustic enhancement. * Right breast 11:00 4 cm from the nipple is a hypoechoic suspected cyst with internal debris and with posterior acoustic enhancement. This measures up to 7 mm. * Left breast 5:00 6 cm from the nipple is a cyst with posterior acoustic enhancement measuring up to 5 mm. * Left breast 7:00 5 cm from nipple complicated appearing cyst with posterior acoustic enhancement. Measuring up to 5 mm * Left breast 10:00 5 cm from nipple complication of chest measuring up to 8 mm. Overall Assessment: Probably benign, BI-RAD 3 Management: Diagnostic Breast Ultrasound of the right breast in 6 months. Follow-up right breast ultrasound for probable comminuted cyst at 11:00 4 cm from the nipple in 6 months. A clinical breast exam by your physician is recommended on an annual basis and results should be correlated with mammographic findings. This exam should not preclude additional follow-up of suspicious palpable abnormalities. Results were given to the patient verbally at the time of exam. Electronically signed and approved by: Abhinav Mcintyre DO
== END | disposition home or self-care (01) ==
LOC: RADMAMWWP 14:54
PROVIDERS: ATTEND Family Medicine
DX: R92.8 Other abnormal and inconclusive findings on diagnostic imaging of breast (principal); Z80.3 Family history of malignant neoplasm of breast
CPT/HCPCS: 77066

== ENCOUNTER → 2022-12-12 | Outpatient (CLI) | payer OTHER ==
--- NOTE | 2022-12-12 16:35 | USB ---
Reason for Exam: Follow-up at short interval from prior study. Patient History: Menarche at age 16. First Full-Term at age 25. Hysterectomy at age 34. Maternal grandmother had breast cancer. Maternal aunt had breast cancer, age 44. Risk Values: Amada 5 year model risk: 0.8%. NCI Lifetime model risk: 7.4%. Technique: Method: Targeted. Prior Study Comparison: 01/02/2009 Bilateral Screening Mammogram, [facility]. 06/11/2022 Bilateral MG screening mammo w CAD, [facility]. 06/18/2022 Bilateral MG work up mamm w CAD BILAT, [facility]. Findings: The upper outer quadrant of the right breast, the axilla of the right breast and the retroareolar of the right breast were scanned. Targeted ultrasound superior aspect of the right breast from 9:00 to 4:00 including the subareolar region and axilla. At the 10:00 position, 5 cm from the nipple, benign 8 x 7 x 3 mm cyst redemonstrated. At the 11:00 position, 4 cm from the nipple, round hypoechoic structure measuring 7 x 7 x 6 mm. Suspected cyst with debris, unchanged in size from 6 months. At the 1:00 position, 4 cm from the nipple, suspect a collapsed cyst measuring 5 x 5 x 2 mm. At the 4:00 position, 6 cm from the nipple, cyst cluster versus debris-filled cyst measuring 9 x 7 x 3 mm. Overall Assessment: Probably benign, BI-RAD 3 Management: Diagnostic Mammogram of both breasts in 6 months. 1. In time for the patient's annual exam and to reassess the initially detected areas of bilateral nodularity. 2. Patient should continue monthly self breast exams. 3. This exam should not preclude additional follow-up of suspicious palpable abnormalities. Results were given to the patient verbally at the time of exam. Electronically signed and approved by: Erinn Blanco M.D. Radiologist
== END | disposition home or self-care (01) ==
LOC: RADUSWWP 10:28
PROVIDERS: ATTEND Family Medicine
DX: N60.01 Solitary cyst of right breast (principal); Z11.4 Encounter for screening for human immunodeficiency virus [HIV]; E78.5 Hyperlipidemia, unspecified; Z78.0 Asymptomatic menopausal state

== ENCOUNTER 2023-06-05 12:00 | Emergency (ER) | payer OTHER ==
[2023-06-05 12:38] VITALS: TEMP 98.1
--- NOTE | 2023-06-05 12:50 | XR ---
EXAMINATION TYPE: XR KUB DATE OF EXAM: 06/05/2023 Comparison: 06/19/2011 Clinical History: 52-year-old female abdominal pain Findings: Lung bases are clear. No evidence for free intraperitoneal air. Similar asymmetric elevation right hemidiaphragm. No dilated small bowel or air-fluid levels. Mild scattered stool. Air and stool extends distally to the rectum. Bilateral pelvic phleboliths. Cholecystectomy clips. Impression: Mild stool burden. No evidence for free air or bowel obstruction. Previous cholecystectomy.
[2023-06-05 13:04] VITALS: RESP 16
[2023-06-05 13:07] LABS: Basophils # (A) 0.1 k/uL (0-0.2); Basophils % (A) 1 %; Eosinophils # (A) 0.3 k/uL (0-0.7); Eosinophils % (A) 3 %; HCT 46.6 % (34.0-46.0); HGB 15.5 gm/dL (11.4-16.0); Lymphocytes % (A) 39 %; MCH 30.5 pg (25.0-35.0); MCHC 33.1 g/dL (31.0-37.0); MCV 92.1 fL (80.0-100.0); Mean Platelet Volume 6.9; Monocytes # (A) 0.8 k/uL (0-1.0); Monocytes % (A) 7 %; Neutrophils # (A) 4.9 k/uL (1.3-7.7); Neutrophils % (A) 48 %; Platelet Count 385 k/uL (150-450); RBC 5.06 m/uL (3.80-5.40); RDW 13.7 % (11.5-15.5); WBC 10.3 k/uL (3.8-10.6)
[2023-06-05 13:09] LABS: Appearance,Urine Cloudy (Clear); Bilirubin,Urine Negative (Negative); Blood,Urine Moderate (Negative); Color,Urine Yellow; Glucose,Urine (UA) Negative (Negative); Ketones,Urine Negative (Negative); Leukocyte Esterase,Urine Negative (Negative); Mucus,Urine Few /hpf; Nitrite,Urine Negative (Negative); PH, Urine 5.5 (5.0-8.0); Protein,Urine Negative (Negative); RBC,Urine 8 /hpf (0-5); Specific Gravity,Urine 1.018 (1.001-1.035); Squamous Epithelial Cell,Urine 10 /hpf (0-4); Urobilinogen,Urine <2.0 mg/dL (<2.0); WBC,Urine 3 /hpf (0-5)
--- NOTE | 2023-06-05 13:11 | ED ---
Abdominal Pain HPI - General Chief Complaint: Abdominal Pain Stated Complaint: abd pain Time Seen by Provider: 06/05/23 13:09 Source: patient Mode of arrival: ambulatory Limitations: no limitations - History of Present Illness Initial Comments: Ellen is a 52-year-old female presents the ER today for evaluation of constipation. Patient states she's been on narcotics for over 10 years and never suffered from constipation. She states at this point she has not had a bowel movement in 2-1/2 weeks, she saw her primary care today they were able to schedule a colonoscopy at Dr. Cazares in approximately 2 weeks. Patient states she was advised to come to the ER for evaluation of possible bowel obstruction. Patient reports she feels like her abdomen is bloated and somewhat tender. She is nauseated and has decreased appetite. She's taken one stool softener and one [id number] laxative in the past 2 and half weeks no other attempts for treatment of constipation. - Related Data Home Medications Medication Instructions Recorded Confirmed HYDROcodone/APAP 10-325MG [[place] 1 tab PO QID 02/16/14 06/05/23 10-325] diphenhydrAMINE [Benadryl] 50 mg PO HS 05/09/22 06/05/23 Previous Rx's Medication Instructions Recorded Docusate [Colace] 100 mg PO BID #30 capsule 06/05/23 Ondansetron Odt [Zofran Odt] 4 mg PO Q8HR PRN #12 tab 06/05/23 polyethylene glycoL 3350 [Miralax] 17 gm PO DAILY #527 gm 06/05/23 Allergies Allergy/AdvReac Type Severity Reaction Status Date / Time adhesive Allergy Unknown Rash/Hives/ Verified 06/05/23 13:52 SOB Iodinated Contrast Media Allergy Anaphylaxis Verified 06/05/23 13:49 [Iodinated Contrast Media - IV Dye] latex Allergy Rash/Hives/ Verified 06/05/23 13:52 SOB morphine Allergy Rash/Hives/ Verified 06/05/23 13:52 SOB albuterol AdvReac Rapid Verified 06/05/23 13:49 Heart Rate Review of Systems ROS Statement: Those systems with pertinent positive or pertinent negative responses have been documented in the HPI. ROS Other: All systems not noted in ROS Statement are negative. Past Medical History Past Medical History: COPD, Fibromyalgia, Hyperlipidemia, Osteoarthritis (OA), Pneumonia Additional Past Medical History / Comment(s): Pulmonary htn, absence of R lung pulmonary artery, bronchitis, past home oxygen use, chronic cervical and low back pain, palpitations, insomnia, shingles History of Any Multi-Drug Resistant Organisms: None Reported Past Surgical History: Section, Cholecystectomy, EPS, Heart Catheterization, Hysterectomy, Orthopedic Surgery, Tubal Ligation Additional Past Surgical History / Comment(s): Cervical surgery with hardware, R knee arthroscopies x 2, pain clinic procedures, colonoscopy Past Anesthesia/Blood Transfusion Reactions: No Reported Reaction, Motion Sickness Past Psychological History: Anxiety, Depression, Panic Disorder, PTSD Smoking Status: Current every day smoker Past Alcohol Use History: Occasional, Rare Past Drug Use History: None Reported - Past Family History Mother Family Medical History: Thyroid Disorder Father Family Medical History: Congestive Heart Failure (CHF) Additional Family Medical History / Comment(s): crohns Brother(s) Family Medical History: Diabetes Mellitus Daughter(s) Additional Family Medical History / Comment(s): hole in heart repaired Son(s) Additional Family Medical History / Comment(s): from aortic dissection at the age of 17 yrs. General Exam Limitations: no limitations General appearance: alert Head exam: Present: atraumatic, normocephalic ENT exam: Present: normal exam Respiratory exam: Absent: respiratory distress Cardiovascular Exam: Present: regular rate GI/Abdominal exam: Present: soft, tenderness. Absent: guarding, rebound, rigid Rectal exam: Present: deferred Extremities exam: Present: normal capillary refill Neurological exam: Present: alert, oriented X3 Psychiatric exam: Present: normal affect Skin exam: Present: warm, dry Course Vital Signs 06/05/23 06/05/23 06/05/23 12:17 13:02 14:18 Temperature 98.1 F Pulse Rate 85 68 72 Respiratory 17 16 16 Rate Blood Pressure 102/68 120/60 110/60 O2 Sat by Pulse 96 98 98 Oximetry Medical Decision Making - Medical Decision Making Was pt. sent in by a medical professional or institution ([facility], [employer], urgent care, hospital, or half-way...) When possible be specific @ -Yes, Dr. Hernandez Did you speak to anyone other than the patient for history (EMS, parent, family, police, friend...)? What history was obtained from this source @ -No Did you review nursing and triage notes (agree or disagree)? Why? @ -I reviewed and agree with nursing and triage notes Were old charts reviewed (outside hosp., previous admission, EMS record, old EKG, old radiological studies, urgent care reports/EKG's, half-way records)? Report findings @ -Previous ER visits reviewed Differential Diagnosis (chest pain, altered mental status, abdominal pain women, abdominal pain men, vaginal bleeding, weakness, fever, dyspnea, syncope, headache, dizziness, GI bleed, back pain, seizure, CVA, palpatations, mental health)? @ -Differential Abdominal Pain Men: Appendicitis, cholecystitis, diverticulosis, ischemic bowel, pancreatitis, hepatitis, UTI, gastroenteritis, AAA, incarcerated hernia, bowel obstruction, constipation, inflammatory bowel, hepatitis, peptic ulcer disease, splenic infarction, perforated viscus, testicular torsion, this is not meant to be an all-inclusive list EKG interpreted by me (3pts min.). @ -As above X-rays interpreted by me (1pt min.). @ -No evidence of bowel obstruction, no free air CT interpreted by me (1pt min.). @ -None done U/S interpreted by me (1pt. min.). @ -None done What testing was considered but not performed or refused? (CT, X-rays, U/S, labs)? Why? @ -None What meds were considered but not given or refused? Why? @ -Enema - patient declined Did you discuss the management of the patient with other professionals (professionals i.e. , PA, HAND[employer], lab, RT, psych nurse, social services technician, sprinkler repair technician, teacher, chief financial officer, case mgr)? Give summary @ -No Was smoking cessation discussed for >3mins.? @ -No Was critical care preformed (if so, how long)? @ -No Were there social determinants of health that impacted care today? How? (Homelessness, low income, unemployed, alcoholism, drug addiction, transportation, low edu. Level, literacy, decrease access to med. care, intermediate, rehab)? @ -No Was there de-escalation of care discussed even if they declined (Discuss DNR or withdrawal of care, Hospice)? DNR status @ -No What co-morbidities impacted this encounter? (DM, HTN, Smoking, COPD, CAD, Cancer, CVA, ARF, Chemo, Hep., AIDS, mental health diagnosis, sleep apnea, mor bid obesity)? @ -None Was patient admitted / discharged? Hospital course, mention meds given and route, prescriptions, significant lab abnormalities, going to OR and other pertinent info. @ -Patient was seen and evaluated, history was obtained from the patient. Physical exam is unremarkable the abdomen is soft and nondistended. Patient is on chronic narcotics she is not taking any stool softeners. Minimal treatment over the past 2 weeks for this reported constipation. X-rays were obtained there is no signs of bowel obstruction. Labs are unremarkable, results were discussed with the patient. I did offer symptomatic treatment with enema however patient adamantly declined she stated that if she doesn't have an obstruction she just wants to go home. I discussed with the patient the need for a better bowel regimen to prevent constipation, she will be prescribed Colace MiraLAX and Zofran. Patient will follow up outpatient for colonoscopy in 2 weeks. Return parameters discussed patient discharged home in stable condition. Undiagnosed new problem with uncertain prognosis? @ -No Drug Therapy requiring intensive monitoring for toxicity (Heparin, Nitro, Insulin, Cardizem)? @ -No Were any procedures done? @ -No Diagnosis/symptom? @ -Abdominal pain, constipation Acute, or Chronic, or Acute on Chronic? @ -Acute Uncomplicated (without systemic symptoms) or Complicated (systemic symptoms)? @ -default Side effects of treatment? @ -No Exacerbation, Progression, or Severe Exacerbation? @ -No Poses a threat to life or bodily function? How? (Chest pain, [place], [place], pneumonia, PE, COPD, DKA, ARF, appy, cholecystitis, CVA, Diverticulitis, Homicidal, Suicidal, threat to staff... and all critical care pts) @ -Unlikely - Lab Data Result diagrams: 06/05/23 12:21 06/05/23 12:21 Lab Results 06/05/23 06/05/23 06/05/23 Range/Units 12:21 12:21 12:58 WBC 10.3 (3.8-10.6) k/uL RBC 5.06 (3.80-5.40) m/uL Hgb 15.5 (11.4-16.0) gm/dL Hct 46.6 H (34.0-46.0) % MCV 92.1 (80.0-100.0) fL MCH 30.5 (25.0-35.0) pg MCHC 33.1 (31.0-37.0) g/dL RDW 13.7 (11.5-15.5) % Plt Count 385 (150-450) k/uL MPV 6.9 Neutrophils % 48 % Lymphocytes % 39 % Monocytes % 7 % Eosinophils % 3 % Basophils % 1 % Neutrophils # 4.9 (1.3-7.7) k/uL Lymphocytes # 4.0 (1.0-4.8) k/uL Monocytes # 0.8 (0-1.0) k/uL Eosinophils # 0.3 (0-0.7) k/uL Basophils # 0.1 (0-0.2) k/uL Sodium 141 (137-145) mmol/L Potassium 4.5 (3.5-5.1) mmol/L Chloride 106 (98-107) mmol/L Carbon Dioxide 30 (22-30) mmol/L Anion Gap 5 mmol/L BUN 13 (7-17) mg/dL Creatinine 0.99 (0.52-1.04) mg/dL Est GFR (CKD-EPI)AfAm 77 (>60 ml/min/1.73 sqM) Est GFR (CKD-EPI)NonAf 67 (>60 ml/min/1.73 sqM) Glucose 87 (74-99) mg/dL Calcium 9.8 (8.4-10.2) mg/dL Total Bilirubin 0.6 (0.2-1.3) mg/dL AST 20 (14-36) U/L ALT 12 (4-34) U/L Alkaline Phosphatase 76 (38-126) U/L Total Protein 7.3 (6.3-8.2) g/dL Albumin 4.4 (3.5-5.0) g/dL Amylase 90 (30-110) U/L Lipase 211 (23-300) U/L Urine Color Yellow Urine Appearance Cloudy H (Clear) Urine pH 5.5 (5.0-8.0) Ur Specific [place] 1.018 (1.001-1.035) Urine Protein Negative (Negative) Urine Glucose (UA) Negative (Negative) Urine Ketones Negative (Negative) Urine Blood Moderate H (Negative) Urine Nitrite Negative (Negative) Urine Bilirubin Negative (Negative) Urine Urobilinogen <2.0 (<2.0) mg/dL Ur Leukocyte Esterase Negative (Negative) Urine RBC 8 H (0-5) /hpf Urine WBC 3 (0-5) /hpf Ur Squamous Epith Cells 10 H (0-4) /hpf Urine Mucus Few H (None) /hpf Disposition Clinical Impression: Therapeutic opioid induced constipation Disposition: HOME SELF-CARE Condition: Stable Additional Instructions: supervisor claims prescriptions at pharmacy Increase water and fiber intake Follow up for colonoscopy as planned Prescriptions: Docusate [Colace] 100 mg PO BID #30 capsule polyethylene glycoL 3350 [Miralax] 17 gm PO DAILY #527 gm Ondansetron Odt [Zofran Odt] 4 mg PO Q8HR PRN #12 tab PRN Reason: Nausea Is patient prescribed a controlled substance at d/c from ED?: No Referrals: Beto Hernandez MD [Primary Care Provider] - 1-2 days
[2023-06-05 13:20] LABS: ALT 12 U/L (4-34); AST 20 U/L (14-36); African American GFR (CKD) 77 (>60 ml/min/1.73 sqM); Albumin 4.4 g/dL (3.5-5.0); Alkaline Phosphatase 76 U/L (38-126); Amylase 90 U/L (30-110); Anion Gap 5 mmol/L; Blood Urea Nitrogen 13 mg/dL (7-17); Calcium 9.8 mg/dL (8.4-10.2); Carbon Dioxide 30 mmol/L (22-30); Chloride 106 mmol/L (98-107); Glucose 87 mg/dL (74-99); Lipase 211 U/L (23-300); Non-African American GFR(CKD) 67 (>60 ml/min/1.73 sqM); Potassium 4.5 mmol/L (3.5-5.1); Sodium 141 mmol/L (137-145); Total Bilirubin 0.6 mg/dL (0.2-1.3); Total Protein 7.3 g/dL (6.3-8.2)
[2023-06-05 14:38] VITALS: BP 110/60; PULSE 72
== END 2023-06-05 14:19 | disposition home or self-care (01) ==
LOC: EC 12:00
DX: K59.03 Drug induced constipation (principal); T40.2X5A Adverse effect of other opioids, initial encounter; J44.9 Chronic obstructive pulmonary disease, unspecified; F17.200 Nicotine dependence, unspecified, uncomplicated; Z88.5 Allergy status to narcotic agent; Z88.8 Allergy status to other drugs, medicaments and biological substances; Z91.041 Radiographic dye allergy status; Z91.09 Other allergy status, other than to drugs and biological substances
CPT/HCPCS: 36415; 74018; 80053; 81001; 82150; 83690; 85025; 99284

== ENCOUNTER 2023-06-09 08:45 | Day surgery (SDC) | payer OTHER ==
[2023-06-06 09:42] VITALS: BMI 22.7
[~2023-06-09 08:45] MED LIST changes: -LIDOCAINE 1% (10MG/ML) FOR IV START INTRADERMA PRN
[2023-06-09 09:21] VITALS: RESP 16; TEMP 97.1
[2023-06-09] MEDS ORDERED: PROPOFOL 10 MG/ML 20 ML VIAL IV ONE (09:30)
--- NOTE | 2023-06-09 09:32 | P.GSHP ---
History of Present Illness H&P Date: 06/09/23 Chief Complaint: Screening colonoscopy This is a 52-year-old female been safe for screening colonoscopy. Patient denies a significant GI complaints. Past Medical History Past Medical History: COPD, Fibromyalgia, Hyperlipidemia, Osteoarthritis (OA), Pneumonia Additional Past Medical History / Comment(s): Pulmonary htn, absence of R lung pulmonary artery, , chronic cervical and low back pain, palpitations, insomnia, shingles History of Any Multi-Drug Resistant Organisms: None Reported Past Surgical History: Section, Cholecystectomy, EPS, Heart C atheterization, Hysterectomy, Orthopedic Surgery, Tubal Ligation Additional Past Surgical History / Comment(s): Cervical surgery with hardware, R knee arthroscopies x 2, pain clinic procedures, colonoscopy, Past Anesthesia/Blood Transfusion Reactions: No Reported Reaction, Motion Sickness Additional Past Anesthesia/Blood Transfusion Reaction / Comment(s): no blood transfusion Smoking Status: Current every day smoker - Past Family History Mother Family Medical History: Thyroid Disorder Father Family Medical History: Congestive Heart Failure (CHF) Additional Family Medical History / Comment(s): crohns Brother(s) Family Medical History: Diabetes Mellitus Daughter(s) Additional Family Medical History / Comment(s): hole in heart repaired Son(s) Additional Family Medical History / Comment(s): from aortic dissection at the age of 17 yrs. Medications and Allergies Home Medications Medication Instructions Recorded Confirmed Type HYDROcodone/APAP 10-325MG [[place] 1 tab PO QID 02/16/14 06/06/23 History 10-325] diphenhydrAMINE [Benadryl] 50 mg PO HS 05/09/22 06/06/23 History polyethylene glycoL 3350 [Miralax] 17 gm PO DAILY #527 gm 06/05/23 06/06/23 Rx Allergies Allergy/AdvReac Type Severity Reaction Status Date / Time adhesive Allergy Unknown Rash/Hives/ Verified 06/09/23 08:55 SOB Iodinated Contrast Media Allergy Anaphylaxis Verified 06/09/23 08:55 [Iodinated Contrast Media - IV Dye] latex Allergy Rash/Hives/ Verified 06/09/23 08:55 SOB morphine Allergy Rash/Hives/ Verified 06/09/23 08:55 SOB albuterol AdvReac Rapid Verified 06/09/23 08:55 Heart Rate Surgical - Exam Vital Signs Temp Pulse Resp BP Pulse Ox 97.1 F L 89 16 113/58 96 06/09/23 09:02 06/09/23 09:02 06/09/23 09:02 06/09/23 09:02 06/09/23 09:02 - General well developed, well nourished, no distress - Eyes PERRL - ENT normal pinna - Neck no masses - Respiratory normal expansion - Cardiovascular Rhythm: regular - Abdomen Abdomen: soft, non tender Assessment and Plan Assessment: We'll perform screening colonoscopy
--- NOTE | 2023-06-09 09:45 | P.OP ---
Date of Procedure: 06/09/23 Preoperative Diagnosis: Screening colonoscopy Postoperative Diagnosis: Normal colon Procedure(s) Performed: Colonoscopy Anesthesia: MAC Surgeon: Mitesh Jimenez Pathology: none sent Condition: stable Disposition: PACU Description of Procedure: PROCEDURE: The patient was placed on the endoscopy table in the lateral position. Digital rectal examination was performed which revealed no abnormalities. . Flexible colonoscope was then placed in the patient's anus and passed throughout the entire colon. The ileocecal valve was visualized. The cecum, ascending, transverse, descending and sigmoid colon were normal. The rectum was normal as well. There were no masses, polyps or diverticula noted in the entire colon. SUMMARY OF FINDINGS: Normal colonoscopy.
[2023-06-09 10:10] VITALS: BP 93/58; PULSE 69
== END 2023-06-09 10:29 | disposition home or self-care (01) ==
LOC: ORWHC2ENDO 08:45
PROVIDERS: ATTEND Surgery
DX: Z12.11 Encounter for screening for malignant neoplasm of colon (principal); E78.5 Hyperlipidemia, unspecified; J44.9 Chronic obstructive pulmonary disease, unspecified; M19.90 Unspecified osteoarthritis, unspecified site; M79.7 Fibromyalgia; F41.9 Anxiety disorder, unspecified; F43.10 Post-traumatic stress disorder, unspecified; I27.20 Pulmonary hypertension, unspecified; F17.200 Nicotine dependence, unspecified, uncomplicated; Z91.041 Radiographic dye allergy status; Z88.5 Allergy status to narcotic agent; Z88.8 Allergy status to other drugs, medicaments and biological substances; Z91.040 Latex allergy status; Z90.49 Acquired absence of other specified parts of digestive tract
CPT/HCPCS: 45378; J2704

== ENCOUNTER → 2023-07-14 | Outpatient (CLI) | payer OTHER ==
--- NOTE | 2023-07-14 08:31 | MM ---
Reason for Exam: Additional evaluation requested from prior study. Last mammogram was performed 1 year(s) and 1 month(s) ago. Patient History: Menarche at age 16. First Full-Term at age 25. Hysterectomy at age 34. Maternal grandmother had breast cancer. Maternal aunt had breast cancer, age 44. Risk Values: Amada 5 year model risk: 0.8%. NCI Lifetime model risk: 7.4%. Prior Study Comparison: 01/02/2009 Bilateral Screening Mammogram, [facility]. 06/11/2022 Bilateral MG screening mammo w CAD, [facility]. 06/18/2022 Bilateral US breast workup LIA, [facility]. 06/18/2022 Bilateral MG work up mamm w CAD BILAT, [facility]. 12/12/2022 Right US breast limited RT, [facility]. Tissue Density: The breast tissue is heterogeneously dense. This may lower the sensitivity of mammography. Findings: Analyzed By CAD. The pattern is symmetrical. No significant interval change is evident. No suspicious groups of microcalcifications, spiculated or lobular masses, architectural distortion or other secondary signs of malignancy are mammographically apparent. Overall Assessment: Benign, BI-RAD 2 Management: Screening Mammogram of both breasts in 1 year. A negative mammogram report should not preclude additional follow up of suspicious palpable abnormalities. Patient should continue monthly self breast exam. A clinical breast exam by your physician is recommended on an annual basis and results should be correlated with mammographic findings. Electronically signed and approved by: Neftali Corrales D.O. Radiologis
== END | disposition home or self-care (01) ==
LOC: RADMAMWWP 07:51
PROVIDERS: ATTEND Family Medicine
DX: R92.333 Mammographic heterogeneous density, bilateral breasts (principal); Z80.3 Family history of malignant neoplasm of breast
CPT/HCPCS: 77066; G0279; 77062

== ENCOUNTER → 2023-07-14 | Outpatient (CLI) | payer OTHER ==
--- NOTE | 2023-07-14 08:23 | US ---
EXAMINATION TYPE: US abdomen complete DATE OF EXAM: 07/14/2023 COMPARISON: CT CLINICAL INDICATION: Female, 52 years old with history of R10.9 UNSPECIFIED ABDOMINAL PAIN; Generaliz ed ABD pain, GB removed TECHNIQUE: Multiple sonographic images of the abdomen are obtained. FINDINGS: EXAM MEASUREMENTS: Liver Length: 16.3 cm. Normal less than 15.5 cm. CBD: 0.7 cm Spleen: 9.5 cm Right Kidney: 9.6 x 3.7 x 4.5 cm Left Kidney: 9.3 x 4.6 x 4.3 cm DETECTIVE HOMICIDE SQUAD NOTES: Pancreas: wnl Liver: wnl Gallbladder: Surgically absent Evidence for sonographic Pagan's sign: No CBD: wnl Spleen: wnl Right Kidney: Possible calculus upper pole= 5mm, No evidence of hydro Left Kidney: wnl Upper IVC: wnl Abd Aorta: wnl IMPRESSION: 1. Superior pole nonobstructing right renal stone 2. Mild hepatomegaly
== END | disposition home or self-care (01) ==
LOC: RADUSWWP 07:53
PROVIDERS: ATTEND Family Medicine
DX: N20.0 Calculus of kidney (principal); R16.0 Hepatomegaly, not elsewhere classified; Z90.49 Acquired absence of other specified parts of digestive tract
CPT/HCPCS: 76700

== ENCOUNTER → 2023-12-02 | Outpatient (CLI) | payer OTHER ==
--- NOTE | 2023-12-02 21:32 | US ---
EXAMINATION TYPE: US kidneys/renal and bladder DATE OF EXAM: 12/02/2023 COMPARISON: US CLINICAL INDICATION: Female, 53 years old with history of N20.0 CALCULUS OF KIDNEY; Pt states blood i n urine, urinary frequency EXAM MEASUREMENTS: Right Kidney: 10.3 x 3.7 x 4.7 cm Left Kidney: 9.6 x 4.8 x 4.7 cm Right Kidney: No hydronephrosis, possible nonobstructing 4mm calculus upper pole Left Kidney: No hydronephrosis or masses seen Bladder: wnl Bilateral Jets seen: Only right jet visualized IMPRESSION: 1. Nonobstructing right upper pole renal stone
== END | disposition home or self-care (01) ==
LOC: RADUSWWP 13:48
PROVIDERS: ATTEND Family Medicine
DX: N20.0 Calculus of kidney (principal)
CPT/HCPCS: 76770